=== PATIENT | female | born 1970 | race Caucasian/White ===

== ENCOUNTER → 2017-03-20 | Outpatient (CLI) | payer OTHER ==
--- NOTE | 2017-03-20 13:08 | CT ---
EXAMINATION TYPE: CT chest wo con DATE OF EXAM: 03/20/2017 COMPARISON: NONE HISTORY: Rt anterior upper chest swelling CT DLP: 286.9 mGycm. Automated Exposure Control for Dose Reduction was Utilized. TECHNIQUE: CT scan of the thorax is performed without IV contrast. FINDINGS: LUNGS: There is a subcentimeter pulmonary nodule measuring 4 mm within the right upper lobe on series 4 image 22. 2 mm focal area of pleural thickening is seen along the right lateral lower lung on seri es 4 image 52. Focal pleural thickening is also seen measuring 6 mm along the peripheral left lower l obe on series 4 image 53 no other pulmonary nodules or masses are identified.. There is no pleural effusion or pneumothorax seen. The tracheobronchial tree is patent. MEDIASTINUM: Lack of IV contrast is noted to limit evaluation for mediastinal and especially hilar ad enopathy. There are no definitive greater than 1 cm hilar or mediastinal lymph nodes. Single promine nt precarinal lymph node measures 8 mm in short axis. No cardiomegaly or pericardial effusion is seen . OTHER: Asymmetry of the pectoralis major musculature with right greater than left and curvilinear true cification or osseous fragment at the posterior aspect between the pectoralis major and minor muscula ture on series 3 image 15. Minimal fat stranding is seen anteriorly on series 4 image 12 through 14. There is also mild asymmetric sclerosis of the right distal clavicular head in comparison to the left such as on series 6 image 32 and series 3 image 14. Subchondral cystic change of the sternum is also seen at this location and possibly few areas of erosion. Soft tissue prominence projects posteriorly abutting the brachiocephalic vein such as on series 3 image 15 through 18. Remainder of the osseous structures are grossly unremarkable. IMPRESSION: 1. Asymmetric enlargement of the right pectoralis major musculature with overlying inflammatory brown e and distal clavicular sclerosis with surrounding soft tissue attenuation and sternoclavicular subch ondral cysts as well as possible erosion. Findings may be sequela of posttraumatic injury. As there i s no recent trauma inflammatory etiology such as arthropathy is or infectious etiology could be consi dered. 2. Subsolid 4 mm right upper lobe pulmonary nodule for which follow-up CT in one year is recommended to determine stability.
== END | disposition home or self-care (01) ==
LOC: RADCTMAIN 12:19
PROVIDERS: ATTEND Family Medicine
DX: R91.1 Solitary pulmonary nodule (principal); M79.89 Other specified soft tissue disorders; Z88.0 Allergy status to penicillin; Z88.1 Allergy status to other antibiotic agents; Z88.6 Allergy status to analgesic agent
CPT/HCPCS: 71250

== ENCOUNTER 2017-10-06 12:56 | Inpatient (IN) | payer OTHER ==
[2017-10-06] MEDS ORDERED: SODIUM CHLORIDE 0.9% 1,000 ML IV STA (13:56)
[2017-10-06] MEDS ORDERED: CLINDAMYCIN 600 MG in DEXTROSE 5% IN WATER 50 ML IVPB STA ×2 (13:58)
--- NOTE | 2017-10-06 14:00 | ED ---
General Adult HPI <Dayday Lara - Last Filed: 10/06/17 18:19> - General Source: patient, family, RN notes reviewed Mode of arrival: ambulatory Limitations: no limitations <Robert Whitney - Last Filed: 10/06/17 18:22> - General Chief complaint: Skin/Abscess/Foreign Body Stated complaint: Bump on Chest Time Seen by Provider: 10/06/17 13:34 - History of Present Illness Initial comments: Patient is a 47-year-old female presenting to the emergency room today with a chief complaint of possible infection to the right side of the chest wall. She does admit that approximately a year ago the symptoms started. She states she was treated by Dr. Gurrola. She states that several months ago she lost her insurance and was unable to continue the antibiotics. Patient does admit that she began feeling some discomfort right side of the chest wall. Days ago noticed this morning woke up with some swelling. She states the symptoms are consistent with what she was feeling in the past. She does admit to cough and congestion as well. Patient denies any recent fever, chills, shortness of breath , back pain, abdominal pain, nausea or vomiting, numbness or tingling, dysuria or hematuria, constipation or diarrhea, headaches or visual changes, or any other complaints. (Robert Whitney) - Related Data Home Medications Medication Instructions Recorded Confirmed Ibuprofen [Motrin] 400 - 800 mg PO Q6HR PRN 04/04/17 10/06/17 Allergies Allergy/AdvReac Type Severity Reaction Status Date / Time Penicillins Allergy Anaphylaxis Verified 10/06/17 18:13 sulfamethoxazole Allergy Rash/Hives Verified 10/06/17 18:13 [From Bactrim] trimethoprim [From Bactrim] Allergy Rash/Hives Verified 10/06/17 18:13 aspirin AdvReac Nausea & Verified 10/06/17 18:13 Vomiting Review of Systems ROS Other: All systems not noted in ROS Statement are negative. <Dayday Lara - Last Filed: 10/06/17 18:19> ROS Other: All systems not noted in ROS Statement are negative. <Robert Whitney - Last Filed: 10/06/17 18:22> ROS Statement: Those systems with pertinent positive or pertinent negative responses have been documented in the HPI. Past Medical History Past Medical History: Memory Impairment Additional Past Medical History / Comment(s): septic arthritis, right shoulder. MRSA. pt states has experienced memory loss since suicide attempt 7 months ago History of Any Multi-Drug Resistant Organisms: MRSA Date of last positivie culture/infection: 04/12/17 MDRO Source:: ASPIRATE Past Surgical History: Section, Hysterectomy, Orthopedic Surgery, Tonsillectomy Past Anesthesia/Blood Transfusion Reactions: No Reported Reaction Past Psychological History: Anxiety, Bipolar, Depression Smoking Status: Current every day smoker - Past Family History Father Family Medical History: Cancer Additional Family Medical History / Comment(s): lung <Robert Whitney - Last Filed: 10/06/17 18:22> General Exam <Dayday Lara - Last Filed: 10/06/17 18:19> Limitations: no limitations <Robert Whitney - Last Filed: 10/06/17 18:22> - General Exam Comments Initial Comments: General: The patient is awake and alert, in no distress, and does not appear acutely ill. Eye: Pupils are equal, round and reactive to light, extra-ocular movements are intact. No nystagmus. There is normal conjunctiva bilaterally. No signs of icterus. Ears, nose, mouth and throat: There are moist mucous membranes and no oral lesions. Neck: The neck is supple, there is no tenderness or JVD. Cardiovascular: There is a regular rate and rhythm. No murmur, rub or gallop is appreciated. Respiratory: Lungs are clear to auscultation, respirations are non-labored, breath sounds are equal. No wheezes, stridor, rales, or rhonchi. Musculoskeletal: Normal ROM, no tenderness. Strength 5/5. Sensation intact. Pulses equal bilaterally 2+. Neurological: A&O x 3. CN II-XII intact, There are no obvious motor or sensory deficits. Coordination appears grossly intact. Speech is normal. Skin: Mild area of swelling to the chest wall just below the right clavicle. No fluctuant area. Area is red surrounding. Psychiatric: Cooperative, appropriate mood & affect, normal judgment. (Robert Whitney) Course <Dayday Lara - Last Filed: 10/06/17 18:19> <Robert Whitney - Last Filed: 10/06/17 18:22> Vital Signs 06/09/18 06/09/18 06/09/18 13:18 14:30 17:19 Temperature 99.0 F Pulse Rate 103 H 91 99 Respiratory 18 18 18 Rate Blood Pressure 158/91 126/82 133/62 O2 Sat by Pulse 97 98 99 Oximetry - Reevaluation(s) Reevaluation #1: 10/06/17 18:19 PA supervision I proceeded a [id number] evaluation the patient did discuss the findings with her. 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 Patient will be admitted for inpatient treatment with consultation by infectious disease. (Dayday Lara) Medical Decision Making - Lab Data Result diagrams: 10/06/17 14:26 10/06/17 14:26 <Dayday Lara - Last Filed: 10/06/17 18:19> - Lab Data Result diagrams: 10/06/17 14:26 10/06/17 14:26 <Robert Whitney - Last Filed: 10/06/17 18:22> - Medical Decision Making Patient's labs been reviewed 14,000 white count. X-rays reviewed no evidence for osteomyelitis. No other acute abnormality. Patient does admit that the symptoms are consistent with symptoms that she had in the past of a MRSA infection to the chest wall. She was seen by infectious disease Dr. Gurrola. Patient started on clindamycin here in emergency room. Patient will be admitted to the hospital for continued on IV antibiotics. With consult to Dr. Abreu as Dr Gurrola is unavailable (Robert Wihtney) - Lab Data Lab Results 10/06/17 10/06/17 10/06/17 Range/Units 14:26 14:26 14:26 WBC 14.1 H (3.8-10.6) k/uL RBC 4.58 (3.80-5.40) m/uL Hgb 13.8 (11.4-16.0) gm/dL Hct 40.7 (34.0-46.0) % MCV 89.0 (80.0-100.0) fL MCH 30.2 (25.0-35.0) pg MCHC 34.0 (31.0-37.0) g/dL RDW 13.7 (11.5-15.5) % Plt Count 362 (150-450) k/uL Neutrophils % 78 % Lymphocytes % 14 % Monocytes % 6 % Eosinophils % 0 % Basophils % 0 % Neutrophils # 11.1 H (1.3-7.7) k/uL Lymphocytes # 1.9 (1.0-4.8) k/uL Monocytes # 0.9 (0-1.0) k/uL Eosinophils # 0.1 (0-0.7) k/uL Basophils # 0.0 (0-0.2) k/uL Sodium 143 (137-145) mmol/L Potassium 4.2 (3.5-5.1) mmol/L Chloride 104 (98-107) mmol/L Carbon Dioxide 25 (22-30) mmol/L Anion Gap 14 mmol/L BUN 8 (7-17) mg/dL Creatinine 0.50 L (0.52-1.04) mg/dL Est GFR (CKD-EPI)AfAm >90 (>60 ml/min/1.73 sqM) Est GFR (CKD-EPI)NonAf >90 (>60 ml/min/1.73 sqM) Glucose 96 (74-99) mg/dL Plasma Lactic Acid Julio 0.5 L (0.7-2.0) mmol/L Calcium 10.2 (8.4-10.2) mg/dL Total Bilirubin 0.4 (0.2-1.3) mg/dL AST 20 (14-36) U/L ALT 26 (9-52) U/L Alkaline Phosphatase 89 (38-126) U/L Total Protein 7.9 (6.3-8.2) g/dL Albumin 4.5 (3.5-5.0) g/dL Urine Color Urine Appearance (Clear) Urine pH (5.0-8.0) Ur Specific [place] (1.001-1.035) Urine Protein (Negative) Urine Glucose (UA) (Negative) Urine Ketones (Negative) Urine Blood (Negative) Urine Nitrite (Negative) Urine Bilirubin (Negative) Urine Urobilinogen (<2.0) mg/dL Ur Leukocyte Esterase (Negative) Urine RBC (0-5) /hpf Urine WBC (0-5) /hpf Ur Squamous Epith Cells (0-4) /hpf Urine Bacteria (None) /hpf 10/06/17 Range/Units 14:26 WBC (3.8-10.6) k/uL RBC (3.80-5.40) m/uL Hgb (11.4-16.0) gm/dL Hct (34.0-46.0) % MCV (80.0-100.0) fL MCH (25.0-35.0) pg MCHC (31.0-37.0) g/dL RDW (11.5-15.5) % Plt Count (150-450) k/uL Neutrophils % % Lymphocytes % % Monocytes % % Eosinophils % % Basophils % % Neutrophils # (1.3-7.7) k/uL Lymphocytes # (1.0-4.8) k/uL Monocytes # (0-1.0) k/uL Eosinophils # (0-0.7) k/uL Basophils # (0-0.2) k/uL Sodium (137-145) mmol/L Potassium (3.5-5.1) mmol/L Chloride (98-107) mmol/L Carbon Dioxide (22-30) mmol/L Anion Gap mmol/L BUN (7-17) mg/dL Creatinine (0.52-1.04) mg/dL Est GFR (CKD-EPI)AfAm (>60 ml/min/1.73 sqM) Est GFR (CKD-EPI)NonAf (>60 ml/min/1.73 sqM) Glucose (74-99) mg/dL Plasma Lactic Acid Julio (0.7-2.0) mmol/L Calcium (8.4-10.2) mg/dL Total Bilirubin (0.2-1.3) mg/dL AST (14-36) U/L ALT (9-52) U/L Alkaline Phosphatase (38-126) U/L Total Protein (6.3-8.2) g/dL Albumin (3.5-5.0) g/dL Urine Color Light Yellow Urine Appearance Clear (Clear) Urine pH 6.0 (5.0-8.0) Ur Specific [place] 1.005 (1.001-1.035) Urine Protein Negative (Negative) Urine Glucose (UA) Negative (Negative) Urine Ketones Negative (Negative) Urine Blood Small H (Negative) Urine Nitrite Negative (Negative) Urine Bilirubin Negative (Negative) Urine Urobilinogen <2.0 (<2.0) mg/dL Ur Leukocyte Esterase Negative (Negative) Urine RBC 2 (0-5) /hpf Urine WBC <1 (0-5) /hpf Ur Squamous Epith Cells 1 (0-4) /hpf Urine Bacteria Occasional H (None) /hpf Disposition <Dayday Lara - Last Filed: 10/06/17 18:19> Is patient prescribed a controlled substance at d/c from ED?: No Time of Disposition: 16:15 <Robert Whitney - Last Filed: 10/06/17 18:22> Clinical Impression: Chest wall abscess Disposition: ADMITTED IP TO THIS HOSP Condition: Good Referrals: Morgan Srivastava MD [Primary Care Provider] - 1-2 days
[2017-10-06] MEDS ORDERED: MORPHINE SULFATE 2 MG/ML SYRINGE IVP STA (14:33)
[2017-10-06 14:49] LABS: Basophils % (A) 0 %; Eosinophils # (A) 0.1 k/uL (0-0.7); Eosinophils % (A) 0 %; HCT 40.7 % (34.0-46.0); HGB 13.8 gm/dL (11.4-16.0); Lymphocytes # (A) 1.9 k/uL (1.0-4.8); Lymphocytes % (A) 14 %; MCH 30.2 pg (25.0-35.0); Monocytes # (A) 0.9 k/uL (0-1.0); Monocytes % (A) 6 %; Neutrophils # (A) 11.1 k/uL (1.3-7.7); Neutrophils % (A) 78 %; Platelet Count 362 k/uL (150-450); RBC 4.58 m/uL (3.80-5.40); RDW 13.7 % (11.5-15.5); WBC 14.1 k/uL (3.8-10.6)
[2017-10-06 14:51] LABS: Appearance,Urine Clear (Clear); Bacteria,Urine Occasional /hpf; Bilirubin,Urine Negative (Negative); Blood,Urine Small (Negative); Color,Urine Light Yellow; Glucose,Urine (UA) Negative (Negative); Ketones,Urine Negative (Negative); Leukocyte Esterase,Urine Negative (Negative); Nitrite,Urine Negative (Negative); Protein,Urine Negative (Negative); RBC,Urine 2 /hpf (0-5); Specific Gravity,Urine 1.005 (1.001-1.035); Squamous Epithelial Cell,Urine 1 /hpf (0-4); Urobilinogen,Urine <2.0 mg/dL (<2.0); WBC,Urine <1 /hpf (0-5)
[2017-10-06 15:02] LABS: ALT 26 U/L (9-52); AST 20 U/L (14-36); Albumin 4.5 g/dL (3.5-5.0); Alkaline Phosphatase 89 U/L (38-126); Anion Gap 14 mmol/L; Blood Urea Nitrogen 8 mg/dL (7-17); Calcium 10.2 mg/dL (8.4-10.2); Carbon Dioxide 25 mmol/L (22-30); Chloride 104 mmol/L (98-107); Glucose 96 mg/dL (74-99); Potassium 4.2 mmol/L (3.5-5.1); Sodium 143 mmol/L (137-145); Total Bilirubin 0.4 mg/dL (0.2-1.3); Total Protein 7.9 g/dL (6.3-8.2)
--- NOTE | 2017-10-06 15:43 | XR ---
EXAMINATION TYPE: XR chest 2V DATE OF EXAM: 10/06/2017 COMPARISON: NONE TECHNIQUE: PA and lateral views submitted. HISTORY: Pain and cough FINDINGS: The lungs are clear and there is no pneumothorax, pleural effusion, or focal pneumonia. Hypertrophi c change of the spine noted. Hyperinflation suggests COPD. IMPRESSION: 1. No acute process.
--- NOTE | 2017-10-06 15:46 | XR ---
EXAMINATION TYPE: XR clavicle RT DATE OF EXAM: 10/06/2017 COMPARISON: NONE HISTORY: Pain TECHNIQUE: 2 views submitted FINDINGS: AC joint maintained. Osseous structures intact. IMPRESSION: No acute fracture
[2017-10-06] MEDS ORDERED: MORPHINE SULFATE 2 MG/ML SYRINGE IV PRN (16:46)
[2017-10-06] MEDS ORDERED: NALOXONE 0.4 MG/ML 1 ML VIAL IV PRN (16:46)
[2017-10-06] MEDS ORDERED: SODIUM CHLORIDE 0.9% 1,000 ML IV ONE (16:46)
[2017-10-06] MEDS ORDERED: LORazepam 2 MG/ML INJ IV PRN (16:46)
[2017-10-06] MEDS: ACETAMINOPHEN TAB 325 MG TAB PO PRN ×2 (17:16→22:42)
[2017-10-06] MEDS: IBUPROFEN 600 MG TAB PO PRN ×2 (17:17→22:43)
[2017-10-06 20:21] VITALS: BMI 29.2
[2017-10-06] MEDS: CLINDAMYCIN 300 MG in DEXTROSE 5% IN WATER 50 ML IVPB SCH ×2 (20:33)
[2017-10-07] MEDS: CLINDAMYCIN 300 MG in DEXTROSE 5% IN WATER 50 ML IVPB SCH ×8 (03:50→20:25)
[2017-10-07] MEDS: ONDANSETRON 4 MG/2 ML VIAL IVP PRN ×2 (03:54→18:38)
[2017-10-07 08:45] LABS: Basophils % (A) 0 %; Eosinophils # (A) 0.1 k/uL (0-0.7); Eosinophils % (A) 1 %; HCT 35.6 % (34.0-46.0); HGB 11.7 gm/dL (11.4-16.0); Lymphocytes # (A) 1.3 k/uL (1.0-4.8); Lymphocytes % (A) 18 %; MCH 29.8 pg (25.0-35.0); MCHC 32.8 g/dL (31.0-37.0); MCV 90.7 fL (80.0-100.0); Mean Platelet Volume 6.6; Monocytes # (A) 0.5 k/uL (0-1.0); Monocytes % (A) 7 %; Neutrophils # (A) 5.4 k/uL (1.3-7.7); Neutrophils % (A) 72 %; Platelet Count 314 k/uL (150-450); RBC 3.93 m/uL (3.80-5.40); RDW 13.6 % (11.5-15.5); WBC 7.5 k/uL (3.8-10.6)
[2017-10-07] MEDS: IBUPROFEN 600 MG TAB PO PRN (08:59)
[2017-10-07 09:04] LABS: Albumin 3.3 g/dL (3.5-5.0); Chloride 108 mmol/L (98-107); Glucose 126 mg/dL (74-99); Potassium 4.3 mmol/L (3.5-5.1); Sodium 141 mmol/L (137-145); Total Protein 5.9 g/dL (6.3-8.2)
[2017-10-07 09:07] LABS: ALT 26 U/L (9-52); AST 17 U/L (14-36); Alkaline Phosphatase 64 U/L (38-126); Anion Gap 8 mmol/L; Blood Urea Nitrogen 11 mg/dL (7-17); Carbon Dioxide 25 mmol/L (22-30); Total Bilirubin 0.3 mg/dL (0.2-1.3)
[2017-10-07] MEDS: IBUPROFEN 800 MG TAB PO PRN ×2 (15:46→21:25)
[2017-10-07] MEDS ORDERED: RX INFO: IV CONTRAST WAS GIVEN 1 EACH MISC MISCELLANE PRN (18:56)
--- NOTE | 2017-10-07 20:32 | P.CN ---
Psychiatric Consult - . Consult date: 10/07/17 Consult:: 10/07/17 20:22 IDENTIFYING DATA: 47-year-old female patient HPI: Patient admitted to [facility] medical floor with concerns of chest wall abscess. Patient states that she had MRSA makes reference to it now being back in the bone, relates she's not sure why I'm seeing her for a consultation. Guarding her mood she states that she is " pissed off." She states that she didn't want a friend here and he was here and she threw him out. She does describe having some depression lately. PAST PSYCHIATRIC HISTORY: She reports having had a suicide attempt approximately a year ago of "300 Tylenol." Says she lost part of her memory probably from taking all the medication. She does not currently see a psychiatrist or counselor. Says she had no insurance to pay for the antidepressant. She says she hilario no idea if she's had a manic episode. She makes reference to being on Klonopin in the past as well as a mood stabilizer. PMH: Per chart history memory impairment, septic arthritis, MRSA ALLERGIES: Penicillins, sulfamethoxazole, trimethoprim, aspirin MEDICATIONS: And Tylenol when necessary, clindamycin, when necessary, Ativan when necessary, morphine sulfate when necessary, Narcan when necessary, Zofran when necessary CHEMICAL DEPENDENCY HISTORY: Some history of alcohol use but it was never a problem it sounds. FAMILY PSYCHIATRIC HISTORY: She relates some people in the family been diagnosed with bipolar disorder FAMILY CHEMICAL DEPENDENCY HISTORY: None known at this time SOCIAL HISTORY: Lives at her mom's currently. She has 3 adult children. She is twice and . Says she hasn't been able to work. She is her own guardian. She's not on any disability. MENTAL STATUS EXAM: She is alert and cooperative overall with the interview. She describes her mood is depressed. She denies any recent or current thoughts of harm to self or others. She is oriented to place and date, appears to be looking at the hospital board in the room. She is forgetful for several things in her history. IMPRESSIONS: Unspecified depressive disorder, rule out any component of bipolar disorder; unspecified neurocognitive disorder PLAN: Would recommend getting a medication history if possible of psychotropic medications from Dr. Srivastava's office, so it can be assessed which medication she has been on in the past. We'll see a social work staff can assist with this. We will provide an outpatient mental health referral sheet for the patient. Psychiatry can follow up during the hospital course.
--- NOTE | 2017-10-07 20:44 | CT ---
EXAMINATION TYPE: CT chest w con DATE OF EXAM: 10/07/2017 COMPARISON: 03/20/2017 HISTORY: Right chest wall abscess x 1 year. Approximate center marked by BB. CT DLP: 293.9 mGycm. Automated Exposure Control for Dose Reduction was Utilized. TECHNIQUE: CT scan of the thorax is performed following with IV Contrast, patient injected with 100 mL of Isovue 300. FINDINGS: LUNGS: There is bibasilar subsegmental atelectasis, linear in orientation with lingular atelectasis a lso seen The lungs are grossly clear, there is no concerning parenchymal mass or nodule identified. There is no pleural effusion or pneumothorax seen. The tracheobronchial tree is patent. MEDIASTINUM: There are no greater than 1 cm hilar or mediastinal lymph nodes. No pericardial effusi on is seen. OTHER: There is asymmetric thickening, surrounding mild inflammatory change, and irregularity of the medial pectoralis major musculature. Asymmetric arthropathy of the right sternoclavicular joint and f irst rib at the costochondral junction are also seen posterior to this. No internal fluid signal is s een. No enhancing defined mass is identified. No CT evidence of complete muscular tear. Mild multilev el degenerative change of the thoracic spine. IMPRESSION: Asymmetry of the medial right pectoralis muscle with thickening, surrounding mild inflamm atory change, and heterogeneity. No focal fluid collection is seen. Finding could represent acute on chronic tear or underlying mass. Enhanced chest MRI is recommended for further evaluation.
--- NOTE | 2017-10-07 23:20 | CONS ---
CONSULTATION DATE OF SERVICE: 10/07/2017 REASON FOR CONSULTATION: Chest wall abscess. HISTORY OF PRESENT ILLNESS: The patient is a 47-year-old female who does give a history of right sternoclavicular joint osteomyelitis for which the patient apparently has been treated by Dr. Gurrola with IV antibiotic therapy. The patient said that she is having a pain in her right upper chest. Pain described to be sharp in nature, almost 7 to 10 out of 10, and no radiation. She has been feeling swelling on the right side of the chest area, though denies any high-grade fever. With these symptoms the patient presented back to the [facility] ER where the patient has been evaluated by the ER physician. The patient did have an x-ray done which was negative for any acute process in the chest. A clavicle x-ray showed no acute fracture. The patient was started on vancomycin and admitted to the hospital. Infectious Disease was consulted for further recommendation regarding antibiotic therapy. REVIEW OF SYSTEMS: CONSTITUTIONAL: Positive for weakness, however, denies any high-grade fever. EYES: No complaints. ENT: No complaints. RESPIRATORY: No complaints. CARDIOVASCULAR: No complaints. GENITOURINARY: No complaints. CHEST: No complaints. MUSCULOSKELETAL: As per HPI. INTEGUMENTARY: As per HPI. PSYCHOLOGICAL: No complaints. ENDOCRINE: No complaints. NEUROLOGIC: No complaints. PAST MEDICAL HISTORY: Significant for a right sternoclavicular joint septic arthritis secondary MRSA . PAST SURGICAL HISTORY: , hysterectomy, tonsillectomy. PSYCHOLOGICAL HISTORY: Positive for anxiety, bipolar, depression. SOCIAL HISTORY: Positive smoking. No drinking or drug use. FAMILY HISTORY: Father history of lung cancer. ALLERGIES: PENICILLIN, SULFAMETHOXAZOLE, ASPIRIN. MEDICATIONS: Include the patient currently on Tylenol, clindamycin, Motrin, Ativan, , Zofran. PHYSICAL EXAMINATION: Blood pressure 139/69 with a pulse of 75, temperature 97, saturating 98% on room air. GENERAL DESCRIPTION: A middle aged female lying in bed in no distress. No tachypnea or respiration use. HEENT: Shows no pallor or scleral icterus. Oral mucosa is dry. No pharyngeal erythema or thrush. NECK: Trachea central. No thyromegaly. LUNGS: Unlabored breathing. Clear to auscultation anteriorly. No wheeze or crackle. HEART: Heart S1, S2. Regular rate and rhythm. ABDOMEN: Soft, no tenderness. No guarding or rigidity. EXTREMITIES: No edema of the feet. SKIN: No rash. No mass palpable. NEUROLOGIC: The patient is awake, alert. SKIN: Right upper chest wall area with very minimal tenderness on palpation. No significant swelling or induration was noted. LABS: Hemoglobin 13.8, white count 14.1 with a BUN of 8, creatinine 0.50. UA has been negative. Blood culture obtained currently pending. DIAGNOSTIC IMPRESSION AND PLAN: Patient admitted to the hospital with right upper chest and clavicular area pain and swelling and the patient did have previous history of sternoclavicular joint osteomyelitis with MRSA with concern for possible recurrence of the same infection. The patient currently with no evidence of any cellulitis, minimal tenderness on examination. White count is slightly elevated. X-rays of the chest as well as clinically negative. The patient does have multiple antibiotic allergies limit the number of antibiotics that we could use. PLAN: 1. We will obtain a CT of the chest, specifically pointing towards the sternoclavicular area to rule out any evidence of osteomyelitis or infection in that location. 2. We will discontinue the clindamycin. 3. Start the patient on daptomycin 60 mg/kg daily. 4. The patient will be seen by Dr. Gurrola, to whom the patient is well known, further care starting tomorrow. MASSIEL / FLORINA: [id number] /
[2017-10-08] MEDS: ONDANSETRON 4 MG/2 ML VIAL IVP PRN ×2 (01:51→10:00)
[2017-10-08] MEDS: IBUPROFEN 800 MG TAB PO PRN ×2 (08:14→13:45)
[2017-10-08] MEDS ORDERED: NICOTINE 14MG/24HR PATCH TRANSDERM STA (16:51)
[2017-10-08] MEDS: KETOROLAC 30 MG/ML 1 ML VIAL IVP SCH (17:41)
[2017-10-08] MEDS: LINEZOLID 600 MG in DEXTROSE/WATER 1 300ML.BAG IVPB SCH (17:41)
--- NOTE | 2017-10-08 18:09 | P.PN ---
Subjective Progress Note Date: 10/08/17 47-year-old female known to the infectious disease service starting in March 2017 which point in time she was having difficulties relating to her anterior chest wall. To summarize, Months before she presented she had been hospitalized at [facility] after a suicide attempt. She developed a distinct phlebitis to her left arm. Thereafter developed the progressive pain and swelling to the right anterior chest wall at the right sternoclavicular joint. The patient was referred to infectious diseases in March and she was sent to the interventional radiologist were a joint aspiration occurred and MRSA was found at that site. She was treated originally with vancomycin therapy and had no improvement, and vancomycin OK was 2. She eventually was switched to daptomycin therapy and completed nearly 8 weeks of daptomycin with a marked improvement of her pain swelling to the site. Her sed rate and CRP normalized and she felt relatively well. She has some difficulties with fatigue and some nausea from the antibiotic of the this she had progressive improvement. She relates however shortly after completing her antibiotic therapy she stopped working because she just wasn't feeling well. And since that time which would be June she just has not been doing very well. She continues to have difficulty with her mood. In the site which was doing well again has become a bit more swollen or tender and she's having difficulty with use of the right arm because of the discomfort at that site and presented to the emergency center. She's been not having high-grade fever at this time. Psychiatry has been consulted for her chronic depression issues. Objective - Vital Signs Vital signs: Vital Signs Temp 97.9 F 10/08/17 14:46 Pulse 63 10/08/17 14:46 Resp 20 10/08/17 14:46 BP 113/53 10/08/17 14:46 Pulse Ox 97 10/08/17 14:46 Intake & Output 10/07/17 10/08/17 10/08/17 18:59 06:59 18:59 Intake Total 700 300 Balance 700 300 Intake: Intake, IV Titration 100 Amount DAPTOmycin 450 mg In 100 Sodium Chloride 0.9% 50 ml @ 100 mls/hr IVPB Q24HR FABRICIO Rx#:[id number] Oral 700 200 Other: Voiding Method Toilet # Voids 3 2 - Exam 47-year-old woman relates she feels miserable, but is sitting upright in communicating clearly. HEENT: Anicteric conjunctiva are pink and moist nasal mucosa grossly intact without significant lesions, there is no thrush. Neck: The neck is supple without significant lymphadenopathy or thyromegaly. Lungs: Good bilateral air entry without significant crackles or wheezing. There is no significant bronchial sounds. There is no egophony or dullness. Heart: Regular rate and rhythm with an audible S1-S2, no S3 no S4. There is no significant murmur click or rub, PMI was nondisplaced. Abdomen: Positive bowel sounds soft and nontender without palpable masses or organomegaly. There was no guarding or rebound. Extremities: The upper extremities have excellent pulses they are symmetric, no significant petechiae or telangiectasia. No splinter hemorrhages were noted. The lower extremities are free from significant edema. The peripheral pulses were 2+ and symmetric. Neuro: Awake alert oriented to person place and time. There are no acute new gross focal sensory motor deficits. Skin over the right sternoclavicular joint shows evidence of some mild induration, it is somewhat tender to touch, it is not fluctuant, there is no radiating erythema. She does have some tenderness over the clavicle to the right shoulder but there is no skin erythema that tracks along the clavicle. There is no lymphadenopathy right axillary or supraclavicular. No other abnormal lymph nodes are seen. The left sternoclavicular joint is without tenderness or abnormality. The sternum is nontender. - Labs CBC & Chem 7: 10/07/17 08:21 10/07/17 08:21 Labs: Microbiology - Last 24 Hours (Table) 10/06/17 14:26 Blood Culture - Preliminary Blood No Growth after 48 hours 10/06/17 14:26 Urine Culture - Final Urine,Voided Laboratory Results WBC 7.5 k/uL (3.8-10.6) 10/07/17 08:21 RBC 3.93 m/uL (3.80-5.40) 10/07/17 08:21 Hgb 11.7 gm/dL (11.4-16.0) 10/07/17 08:21 Hct 35.6 % (34.0-46.0) 10/07/17 08:21 MCV 90.7 fL (80.0-100.0) 10/07/17 08:21 MCH 29.8 pg (25.0-35.0) 10/07/17 08:21 MCHC 32.8 g/dL (31.0-37.0) 10/07/17 08:21 RDW 13.6 % (11.5-15.5) 10/07/17 08:21 Plt Count 314 k/uL (150-450) 10/07/17 08:21 Neutrophils % 72 % 10/07/17 08:21 Lymphocytes % 18 % 10/07/17 08:21 Monocytes % 7 % 10/07/17 08:21 Eosinophils % 1 % 10/07/17 08:21 Basophils % 0 % 10/07/17 08:21 Neutrophils # 5.4 k/uL (1.3-7.7) 10/07/17 08:21 Lymphocytes # 1.3 k/uL (1.0-4.8) 10/07/17 08:21 Monocytes # 0.5 k/uL (0-1.0) 10/07/17 08:21 Eosinophils # 0.1 k/uL (0-0.7) 10/07/17 08:21 Basophils # 0.0 k/uL (0-0.2) 10/07/17 08:21 Sodium 141 mmol/L (137-145) 10/07/17 08:21 Potassium 4.3 mmol/L (3.5-5.1) 10/07/17 08:21 Chloride 108 mmol/L (98-107) H 10/07/17 08:21 Carbon Dioxide 25 mmol/L (22-30) 10/07/17 08:21 Anion Gap 8 mmol/L 10/07/17 08:21 BUN 11 mg/dL (7-17) 10/07/17 08:21 Creatinine 0.53 mg/dL (0.52-1.04) 10/07/17 08:21 Est GFR (CKD-EPI)AfAm >90 (>60 ml/min/1.73 sqM) 10/07/17 08:21 Est GFR (CKD-EPI)NonAf >90 (>60 ml/min/1.73 sqM) 10/07/17 08:21 Glucose 126 mg/dL (74-99) H 10/07/17 08:21 Plasma Lactic Acid Julio 0.5 mmol/L (0.7-2.0) L 10/06/17 14:26 Calcium 9.0 mg/dL (8.4-10.2) 10/07/17 08:21 Total Bilirubin 0.3 mg/dL (0.2-1.3) 10/07/17 08:21 AST 17 U/L (14-36) 10/07/17 08:21 ALT 26 U/L (9-52) 10/07/17 08:21 Alkaline Phosphatase 64 U/L (38-126) 10/07/17 08:21 Total Protein 5.9 g/dL (6.3-8.2) L 10/07/17 08:21 Albumin 3.3 g/dL (3.5-5.0) L 10/07/17 08:21 Urine Color Light Yellow 10/06/17 14:26 Urine Appearance Clear (Clear) 10/06/17 14:26 Urine pH 6.0 (5.0-8.0) 10/06/17 14:26 Ur Specific [place] 1.005 (1.001-1.035) 10/06/17 14:26 Urine Protein Negative (Negative) 10/06/17 14:26 Urine Glucose (UA) Negative (Negative) 10/06/17 14:26 Urine Ketones Negative (Negative) 10/06/17 14:26 Urine Blood Small (Negative) H 10/06/17 14:26 Urine Nitrite Negative (Negative) 10/06/17 14:26 Urine Bilirubin Negative (Negative) 10/06/17 14:26 Urine Urobilinogen <2.0 mg/dL (<2.0) 10/06/17 14:26 Ur Leukocyte Esterase Negative (Negative) 10/06/17 14:26 Urine RBC 2 /hpf (0-5) 10/06/17 14:26 Urine WBC <1 /hpf (0-5) 10/06/17 14:26 Ur Squamous Epith Cells 1 /hpf (0-4) 10/06/17 14:26 Urine Bacteria Occasional /hpf (None) H 10/06/17 14:26 Microbiology 10/06/17 14:26 Blood Blood Culture - Preliminary No Growth after 48 hours 10/06/17 14:26 Urine,Voided Urine Culture - Final Assessment and Plan (1) Septic arthritis of right sternoclavicular joint Narrative/Plan: 47-year-old female well known to the service from herself and infection to the right anterior chest wall at the right sternoclavicular joint earlier this year. She was treated with a protracted course of intravenous antibiotic therapy originally vancomycin therapy without improvement which was then switched to daptomycin therapy. With this she had significant improvement in what appeared to be resolution of the infection. She had resolution of the pain and the swelling at the site and normalization of her sed rate and CRP. The following 3 months she's been doing relatively well until she now has a sudden onset of significant swelling to that site that is painful and tender to touch but is not fluctuant, as it was in the past. The chest CT continues to show evidence of the abnormality from the right side to the left with some thickening and inflammatory change no focal fluid collection was noted. She is complaining of not feeling well on the current antibiotic therapy symmetry as before. Constantly daptomycin will be changed to Zyvox and she be monitored for the response. MRI to the areas being requested to evaluate for underlying fluid collection, and to assess infection or abscess of the right sternoclavicular joint or in that region. Pain control be altered to Toradol and notes this will have less impact on her stomach is bothering her at this time. She is an active smoker and a nicotine patch has been applied. Current Visit: Yes Status: Acute Code(s): M00.9 - PYOGENIC ARTHRITIS, UNSPECIFIED SNOMED Code(s): 474219774 (2) Right-sided chest wall pain Current Visit: Yes Status: Acute Code(s): R07.89 - OTHER CHEST PAIN SNOMED Code(s): 507520115 (3) Nausea in adult Current Visit: Yes Status: Acute Code(s): R11.0 - NAUSEA SNOMED Code(s): 312874034
--- NOTE | 2017-10-08 19:33 | HP ---
HISTORY AND PHYSICAL CHIEF COMPLAINT: Pain and swelling of the right sternoclavicular joint. HISTORY OF PRESENT ILLNESS: This lady came to the emergency room with pain, swelling and redness over the right upper anterior chest. She has had a history of MRSA in that area, which was treated several years ago. She noticed the swelling and pain in the last several days and came back to the emergency room, where she was diagnosed as having a recurrence of her infection. She has had no fever, chills, nausea, vomiting, etc. There has been no history of trauma. She also has COPD and a history of depression. REVIEW OF SYSTEMS: She has had no neurologic problems, change in vision or hearing, shortness of breath, cough, hypertension, heart disease, abdominal pain, nausea, vomiting, melena, hematochezia, jaundice, renal disease, diabetes, etc. Past medical history, family history and personal and social histories demonstrate that she is ALLERGIC TO SULFA, PENICILLIN AND ASPIRIN. She has been on Seroquel 50 mg once a day, Wellbutrin 150 b.i.d., vitamin D and ibuprofen. She has had hysterectomy and tonsillectomy and adenoidectomy as well as a LEEP procedure. She continues to smoke and denies drinking. PHYSICAL EXAMINATION: Blood pressure 130/86 with a pulse 72, respirations 33, and temperature 99.5. In general she appeared to be well developed, well nourished, in no acute distress. Skin color is normal. Skin is warm and dry. Lymph nodes are not enlarged. Head, ears, eyes, nose, mouth and throat were normal. Neck veins were not distended. Thyroid is not enlarged. She had soft tissue swelling and tenderness over the right sternoclavicular joint. There is no drainage. Chest is clear to auscultation and percussion. She had increased A/P diameter. Cardiac exam is normal. No murmurs or extra sounds. Abdomen is soft, nontender without any visceromegaly or masses. Extremities are normal. Neurologically she is intact. She is admitted to the hospital with diagnoses: 1. 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 2. Major depression. 3. Chronic obstructive pulmonary disease. PLAN: 1. Bed rest. 2. IV fluids. 3. IV antibiotics. 4. Infectious disease consult. MMODL / IJN: [id number] /
--- NOTE | 2017-10-08 19:39 | PN ---
PROGRESS NOTE DATE OF SERVICE: 10/07/2017 CHIEF COMPLAINT: Cellulitis and joint infection in the right sternoclavicular joint. HISTORY OF PRESENT ILLNESS: This lady is feeling a little bit better. The swelling and discomfort have started to diminish. PHYSICAL EXAMINATION: CHEST: Clear. Cardiac exam is normal. The soft tissue swelling in the region of the proximal clavicle has started to subside. IMPRESSION: Infection in right sternoclavicular joint with cellulitis. PLAN: Continue with IV antibiotics. MMWILLL / BROCKN: [id number] /
--- NOTE | 2017-10-08 19:42 | PN ---
PROGRESS NOTE CHIEF COMPLAINT: Infection of the right sternoclavicular joint. HISTORY OF PRESENT ILLNESS: This lady is doing well. The swelling has gone down and pain is much improved. PHYSICAL EXAMINATION: CHEST: Clear. Cardiac exam is normal. There is much less swelling over the affected area. IMPRESSION: Sternocleidomastoid infection. PLAN: 1. Continue with IV fluids and antibiotics. 2. She has been evaluated and is being followed by Psychiatry. MMODL / IJN: [id number] /
[2017-10-09] MEDS: KETOROLAC 30 MG/ML 1 ML VIAL IVP SCH ×5 (01:43→23:10)
[2017-10-09] MEDS: LINEZOLID 600 MG in DEXTROSE/WATER 1 300ML.BAG IVPB SCH ×2 (06:40→18:16)
[2017-10-09] MEDS: NICOTINE 14MG/24HR PATCH TRANSDERM SCH (08:38)
[2017-10-09] MEDS: ONDANSETRON 4 MG/2 ML VIAL IVP PRN ×2 (08:47→18:36)
[2017-10-09] MEDS ORDERED: MAGNESIUM HYDROXIDE 2,400 MG/10 ML CUP PO PRN (10:39)
[2017-10-09] MEDS: SENNOSIDES-DOCUSATE SODIUM 1 EACH TAB PO SCH ×2 (11:36→20:08)
[2017-10-09] MEDS: PANTOPRAZOLE 40 MG TABLET PO SCH ×2 (12:03→18:18)
--- NOTE | 2017-10-09 12:28 | PN ---
PROGRESS NOTE CHIEF COMPLAINT: Sternomanubrial joint infection. HISTORY OF PRESENT ILLNESS: This lady continues to improve. She is having quite a bit of difficulty with constipation. PHYSICAL EXAM: Physical exam is unchanged. The swelling over the right sternocleidomastoid joint is gradually receding and it is less tender. IMPRESSION: Sternocleidomastoid or sternomanubrial joint infection with cellulitis. PLAN: Continue with IV fluids and antibiotics. She is also to be assessed by Psychiatry. MMWILLL / IJN: [id number] /
--- NOTE | 2017-10-09 15:37 | MR ---
MR right clavicle HISTORY: Abscess right sternoclavicular joint Multiplanar multisequence and postcontrast images through the right clavicle and sternoclavicular madhav nt following 7 cc Gadavist IV. Correlation to CT chest 10/07/2017 The bone erosion seen on CT scan is again noted, there is local fluid signal as well as bone fragment ation abnormal enhancement at the level of the articulation of the anterior first rib and sternum. Fo true area of low signal the level of the joint as noted on T2-weighted sequences with intermediate sig nal on T1, local enhancement on T2 and may represent sequestrum or infection cartilage. Small crescen tic focus of T1 intermediate signal, high signal on T2-weighted sequences, intermediate signal with s urrounding enhancement following contrast administration measuring 1.8 x 0.6 cm inferior to the joint compatible with probable fluid collection, abscess. Inflammatory changes are present within the subc utaneous fat and musculature. IMPRESSION: Abscess involving the anterior articulation of the first rib at the level of the sternum superficially, inflammatory changes with osteomyelitis.
--- NOTE | 2017-10-09 20:16 | P.PN ---
Subjective Progress Note Date: 10/09/17 47-year-old female known to the infectious disease service starting in March 2017 which point in time she was having difficulties relating to her anterior chest wall. To summarize, Months before she presented she had been hospitalized at [facility] after a suicide attempt. She developed a distinct phlebitis to her left arm. Thereafter developed the progressive pain and swelling to the right anterior chest wall at the right sternoclavicular joint. The patient was referred to infectious diseases in March and she was sent to the interventional radiologist were a joint aspiration occurred and MRSA was found at that site. She was treated originally with vancomycin therapy and had no improvement, and vancomycin OK was 2. She eventually was switched to daptomycin therapy and completed nearly 8 weeks of daptomycin with a marked improvement of her pain swelling to the site. Her sed rate and CRP normalized and she felt relatively well. She has some difficulties with fatigue and some nausea from the antibiotic of the this she had progressive improvement. She relates however shortly after completing her antibiotic therapy she stopped working because she just wasn't feeling well. And since that time which would be June she just has not been doing very well. She continues to have difficulty with her mood. In the site which was doing well again has become a bit more swollen or tender and she's having difficulty with use of the right arm because of the discomfort at that site and presented to the emergency center. She's been not having high-grade fever at this time. Psychiatry has been consulted for her chronic depression issues. 10/09/2017 patient feels slightly better today. She continues to have some GI symptoms but is better today. She did eat some food and just fluids without difficulty. She's not had nausea for many hours and has not had emesis today. She relates the pain to the right sternoclavicular area is somewhat improved today. She is not clear if this is because of her lack of activity by the fact that she is starting to feel better. She is not having fever today. It is not related to any other new acute symptoms today. Objective - Vital Signs Vital signs: Vital Signs Temp 98.4 F 10/09/17 14:00 Pulse 67 10/09/17 14:00 Resp 18 10/09/17 14:00 BP 133/67 10/09/17 14:00 Pulse Ox 95 10/09/17 14:00 Intake & Output 10/09/17 10/09/1718 06:59 18:59 06:59 Intake Total 950 960 Balance 950 960 Weight 72.5 kg Intake: Oral 950 960 Other: Voiding Method Toilet # Voids 2 2 - Exam 47-year-old woman relates she feels miserable, but is sitting upright in communicating clearly. HEENT: Anicteric conjunctiva are pink and moist nasal mucosa grossly intact without significant lesions, there is no thrush. Neck: The neck is supple without significant lymphadenopathy or thyromegaly. Lungs: Good bilateral air entry without significant crackles or wheezing. There is no significant bronchial sounds. There is no egophony or dullness. Heart: Regular rate and rhythm with an audible S1-S2, no S3 no S4. There is no significant murmur click or rub, PMI was nondisplaced. Abdomen: Positive bowel sounds soft and nontender without palpable masses or organomegaly. There was no guarding or rebound. Extremities: The upper extremities have excellent pulses they are symmetric, no significant petechiae or telangiectasia. No splinter hemorrhages were noted. The lower extremities are free from significant edema. The peripheral pulses were 2+ and symmetric. Neuro: Awake alert oriented to person place and time. There are no acute new gross focal sensory motor deficits. Skin over the right sternoclavicular joint shows evidence of some mild induration, it is somewhat tender to touch, it is not fluctuant, there is no radiating erythema. She does have some tenderness over the clavicle to the right shoulder but there is no skin erythema that tracks along the clavicle. There is no lymphadenopathy right axillary or supraclavicular. No other abnormal lymph nodes are seen. The left sternoclavicular joint is without tenderness or abnormality. The sternum is nontender. - Labs CBC & Chem 7: 10/07/17 08:21 10/07/17 08:21 Labs: Microbiology - Last 24 Hours (Table) 10/06/17 14:26 Blood Culture - Preliminary Blood No Growth after 72 hours Laboratory Results WBC 7.5 k/uL (3.8-10.6) 10/07/17 08:21 RBC 3.93 m/uL (3.80-5.40) 10/07/17 08:21 Hgb 11.7 gm/dL (11.4-16.0) 10/07/17 08:21 Hct 35.6 % (34.0-46.0) 10/07/17 08:21 MCV 90.7 fL (80.0-100.0) 10/07/17 08:21 MCH 29.8 pg (25.0-35.0) 10/07/17 08:21 MCHC 32.8 g/dL (31.0-37.0) 10/07/17 08:21 RDW 13.6 % (11.5-15.5) 10/07/17 08:21 Plt Count 314 k/uL (150-450) 10/07/17 08:21 Neutrophils % 72 % 10/07/17 08:21 Lymphocytes % 18 % 10/07/17 08:21 Monocytes % 7 % 10/07/17 08:21 Eosinophils % 1 % 10/07/17 08:21 Basophils % 0 % 10/07/17 08:21 Neutrophils # 5.4 k/uL (1.3-7.7) 10/07/17 08:21 Lymphocytes # 1.3 k/uL (1.0-4.8) 10/07/17 08:21 Monocytes # 0.5 k/uL (0-1.0) 10/07/17 08:21 Eosinophils # 0.1 k/uL (0-0.7) 10/07/17 08:21 Basophils # 0.0 k/uL (0-0.2) 10/07/17 08:21 Sodium 141 mmol/L (137-145) 10/07/17 08:21 Potassium 4.3 mmol/L (3.5-5.1) 10/07/17 08:21 Chloride 108 mmol/L (98-107) H 10/07/17 08:21 Carbon Dioxide 25 mmol/L (22-30) 10/07/17 08:21 Anion Gap 8 mmol/L 10/07/17 08:21 BUN 11 mg/dL (7-17) 10/07/17 08:21 Creatinine 0.53 mg/dL (0.52-1.04) 10/07/17 08:21 Est GFR (CKD-EPI)AfAm >90 (>60 ml/min/1.73 sqM) 10/07/17 08:21 Est GFR (CKD-EPI)NonAf >90 (>60 ml/min/1.73 sqM) 10/07/17 08:21 Glucose 126 mg/dL (74-99) H 10/07/17 08:21 Plasma Lactic Acid Julio 0.5 mmol/L (0.7-2.0) L 10/06/17 14:26 Calcium 9.0 mg/dL (8.4-10.2) 10/07/17 08:21 Total Bilirubin 0.3 mg/dL (0.2-1.3) 10/07/17 08:21 AST 17 U/L (14-36) 10/07/17 08:21 ALT 26 U/L (9-52) 10/07/17 08:21 Alkaline Phosphatase 64 U/L (38-126) 10/07/17 08:21 Total Protein 5.9 g/dL (6.3-8.2) L 10/07/17 08:21 Albumin 3.3 g/dL (3.5-5.0) L 10/07/17 08:21 Urine Color Light Yellow 10/06/17 14:26 Urine Appearance Clear (Clear) 10/06/17 14:26 Urine pH 6.0 (5.0-8.0) 10/06/17 14:26 Ur Specific [place] 1.005 (1.001-1.035) 10/06/17 14:26 Urine Protein Negative (Negative) 10/06/17 14:26 Urine Glucose (UA) Negative (Negative) 10/06/17 14:26 Urine Ketones Negative (Negative) 10/06/17 14:26 Urine Blood Small (Negative) H 10/06/17 14:26 Urine Nitrite Negative (Negative) 10/06/17 14:26 Urine Bilirubin Negative (Negative) 10/06/17 14:26 Urine Urobilinogen <2.0 mg/dL (<2.0) 10/06/17 14:26 Ur Leukocyte Esterase Negative (Negative) 10/06/17 14:26 Urine RBC 2 /hpf (0-5) 10/06/17 14:26 Urine WBC <1 /hpf (0-5) 10/06/17 14:26 Ur Squamous Epith Cells 1 /hpf (0-4) 10/06/17 14:26 Urine Bacteria Occasional /hpf (None) H 10/06/17 14:26 Microbiology 10/06/17 14:26 Blood Blood Culture - Preliminary No Growth after 72 hours 10/06/17 14:26 Urine,Voided Urine Culture - Final Assessment and Plan (1) Septic arthritis of right sternoclavicular joint Narrative/Plan: 47-year-old female well known to the service from herself and infection to the right anterior chest wall at the right sternoclavicular joint earlier this year. She was treated with a protracted course of intravenous antibiotic therapy originally vancomycin therapy without improvement which was then switched to daptomycin therapy. With this she had significant improvement in what appeared to be resolution of the infection. She had resolution of the pain and the swelling at the site and normalization of her sed rate and CRP. The following 3 months she's been doing relatively well until she now has a sudden onset of significant swelling to that site that is painful and tender to touch but is not fluctuant, as it was in the past. The chest CT continues to show evidence of the abnormality from the right side to the left with some thickening and inflammatory change no focal fluid collection was noted. She is complaining of not feeling well on the current antibiotic therapy symmetry as before. Constantly daptomycin will be changed to Zyvox and she be monitored for the response. MRI to the areas being requested to evaluate for underlying fluid collection, and to assess infection or abscess of the right sternoclavicular joint or in that region. Pain control be altered to Toradol and notes this will have less impact on her stomach is bothering her at this time. She is an active smoker and a nicotine patch has been applied. 10/09/2017 some discomfort to the right anterior chest wall subclavicular joint but this is less painful than yesterday. The patient is still having some gastrointestinal symptoms that are similar to yesterday. She however is not having any further nausea or emesis and denies other acute new complaints. The MRI to the area of the right sternoclavicular joint has been performed revealing evidence of underlying osteomyelitis and some abscess to that area. Consequently thoracic surgery consult with Dr. light has been requested for further evaluation and potential need for intervention. Given that she has been treated in the past with aspiration to the site, and a long course of injuries have back therapy concern that this is recurrent intermediate more aggressive surgical intervention. Current Visit: Yes Status: Acute Code(s): M00.9 - PYOGENIC ARTHRITIS, UNSPECIFIED SNOMED Code(s): 330544037 (2) Right-sided chest wall pain Current Visit: Yes Status: Acute Code(s): R07.89 - OTHER CHEST PAIN SNOMED Code(s): 225764100 (3) Nausea in adult Current Visit: Yes Status: Acute Code(s): R11.0 - NAUSEA SNOMED Code(s): 093501110
[2017-10-10] MEDS: LINEZOLID 600 MG in DEXTROSE/WATER 1 300ML.BAG IVPB SCH ×2 (06:21→17:30)
[2017-10-10] MEDS: KETOROLAC 30 MG/ML 1 ML VIAL IVP SCH ×4 (06:21→23:42)
[2017-10-10] MEDS: PANTOPRAZOLE 40 MG TABLET PO SCH ×2 (08:09→17:09)
[2017-10-10] MEDS: SENNOSIDES-DOCUSATE SODIUM 1 EACH TAB PO SCH ×2 (08:09→20:29)
[2017-10-10] MEDS: NICOTINE 14MG/24HR PATCH TRANSDERM SCH (08:09)
--- NOTE | 2017-10-10 15:03 | P.GSCN ---
<Rufino Mercado - Last Filed: 10/10/17 14:38> History of Present Illness Consult date: 10/10/17 Reason for Consult: Abscess of first rib/sternum. Requesting physician: Ramos Gurrola History of present illness: This is a 47-year-old female patient who is followed by Dr. Krishnan on an outpatient basis. She has a past medical history significant for septic arthritis of her right sternoclavicular joint with a positive culture of MRSA post needle aspirate in March 2017, current tobacco dependence, history of depression with previous suicide attempt in 2017, and history of bipolar disorder. She presented to the emergency department here at [facility] on 10/06/2017 with complaints of right sided anterior swelling and chest wall pain, and nausea. She denies any fevers, chills, rigors, shortness of breath, dizziness, or syncope. The patient has a history of similar symptoms about a year ago after having a previous IV to her left arm which developed phlebitis and subsequent swelling to her right anterior chest. She underwent an ultrasound guided needle aspirate in March 2017 which demonstrated MRSA. A PICC line was placed at that time and she was followed by Dr. Ramos Gurrola from infectious disease on an outpatient basis for antibiotic therapy in the way of daptomycin. She reports she was receiving antibiotic therapy for about 2-3 months. She was subsequently admitted to the hospital and underwent a computed tomography scan of her chest which demonstrated some asymmetric thickening, surrounding mild inflammatory changes and irregularity of the medial pectoralis major musculature. It also demonstrated some asymmetric abnormalities of the right sternoclavicular joint and first rib at the costochondral junction. For further evaluation the patient underwent an MRI of her right clavicle which demonstrated an abscess involving the anterior articulation of the first rib at the level of the sternum superficially and inflammatory changes with osteomyelitis. Due to the patient's history, presenting symptoms, CAT scan of her chest and MRI results a consult was placed to Dr. Haynes from cardiothoracic surgery for further treatment recommendations. Review of Systems A 14 point review of systems was completed and was negative except as mentioned in HPI. Past Medical History Past Medical History: Blood Disorder (History of anemia), Memory Impairment Additional Past Medical History / Comment(s): Septic arthritis, right shoulder/ chest MRSA, memory loss, right chest wall abscess treated once w/ PICC line + IV abx recently, tendonitis. History of Any Multi-Drug Resistant Organisms: MRSA Year Discovered:: 04/12/17 MDRO Source:: ASPIRATE Past Surgical History: Section (2), Hysterectomy, Orthopedic Surgery ( Right elbow), Tonsillectomy Past Anesthesia/Blood Transfusion Reactions: No Reported Reaction Past Psychological History: Anxiety, Bipolar, Depression Additional Psychological History / Comment(s): Pt. had previous suicidal attempt - states that the details are foggy and doesn't remember a lot. Smoking Status: Current every day smoker Past Alcohol Use History: None Reported Additional Past Alcohol Use History / Comment(s): Started smoking as a teen - smokes 1 PPD. Past Drug Use History: None Reported - Past Family History Father Family Medical History: Cancer Additional Family Medical History / Comment(s): Lung Mother Additional Family Medical History / Comment(s): Neurofibromatosis Medications and Allergies Home Medications Medication Instructions Recorded Confirmed Type Ibuprofen [Motrin] 400 - 800 mg PO Q6HR PRN 04/04/17 10/06/17 History Linezolid [Zyvox] 600 mg PO Q12HR #20 tab 10/11/17 Rx Allergies Allergy/AdvReac Type Severity Reaction Status Date / Time Penicillins Allergy Anaphylaxis Verified 10/06/17 23:43 sulfamethoxazole Allergy Rash/Hives Verified 10/06/17 23:43 [From Bactrim] trimethoprim [From Bactrim] Allergy Rash/Hives Verified 10/06/17 23:43 aspirin AdvReac Nausea & Verified 10/06/17 23:43 Vomiting Surgical - Exam Vital Signs Temp Pulse Resp BP Pulse Ox 99.0 F 103 H 18 158/91 97 10/06/17 13:18 10/06/17 13:18 10/06/17 13:18 10/06/17 13:18 10/06/17 13:18 - General well developed, well nourished, no distress, no pain, obese - Eyes PERRL, normal ocular movement - ENT normal pinna, normal nares, normal mucosa, no hearing loss, no congestion - Neck Neck is supple, no lymphadenopathy or thyromegaly. no masses, no bruits, trachea midline, no venous distension - Respiratory Lung sounds are essentially clear throughout. Respirations are symmetrical and nonlabored. - Cardiovascular Regular rhythm and rate. S1 and S2 present, negative for S3, gallop or murmur. No edema present. - Abdomen Abdomen is soft, nontender and nondistended. Active bowel sounds all 4 abdominal quadrants. No organomegaly. No guarding or rigidity. - Genitourinary Deferred - Rectum Deferred - Integumentary Skin is warm and dry. There is no clubbing or cyanosis. Evidence of some mild induration over her right sternoclavicular joint. No fluctuation. No tenderness to palpation. no rash, no growths, no abnormal pigmentation - Neurologic normal coordination, normal sensation - Musculoskeletal normal gait, normal posture - Psychiatric Periods of forgetfulness. oriented to time, oriented to person, oriented to place, speech is normal Results - Labs 10/07/17 08:21 10/07/17 08:21 Abnormal Lab Results - Last 24 Hours (Table) 10/10/17 10/10/17 Range/Units 09:18 09:18 ESR 35 H (0-20) mm/hr C-Reactive Protein 14.1 H (<10.0) mg/L Microbiology - Last 24 Hours (Table) 10/06/17 14:26 Blood Culture - Preliminary Blood No Growth after 72 hours - Imaging Chest x-ray: report reviewed, image reviewed CT scan - chest: report reviewed, image reviewed Additional studies: MRI films and report reviewed by Dr. Haynes. Assessment and Plan (1) Nausea in adult Status: Acute Code(s): R11.0 - NAUSEA SNOMED Code(s): 123823478 (2) Right-sided chest wall pain Status: Acute Code(s): R07.89 - OTHER CHEST PAIN SNOMED Code(s): 205745750 (3) Septic arthritis of right sternoclavicular joint Status: Acute Code(s): M00.9 - PYOGENIC ARTHRITIS, UNSPECIFIED SNOMED Code(s ): 819720340 Plan: The patient was seen and examined. Her chart and diagnostics were reviewed. The patient was seen and examined by Dr. Haynes. Dr. Haynes will discuss the findings on the MRI and CT scan of the chest with Dr. Gurrola from infectious disease. Continue current antibiotic therapy managed by infectious disease. Medical management per primary care service. Further recommendations to follow based on clinical course and discussion with Dr. Gurrola. Thank you Dr. Gurrola for this consult and we look forward to participating in the care of your patient. Time with Patient: Greater than 30 <Harsha Haynes - Last Filed: 10/12/17 09:58> Surgical - Exam Vital Signs Temp Pulse Resp BP Pulse Ox 99.0 F 103 H 18 158/91 97 10/06/17 13:18 10/06/17 13:18 10/06/17 13:18 10/06/17 13:18 10/06/17 13:18 Results - Labs 10/07/17 08:21 10/07/17 08:21 Microbiology - Last 24 Hours (Table) 10/06/17 14:26 Blood Culture - Preliminary Blood No Growth after 120 hours Assessment and Plan Plan: The patient was seen and examined. The history and physical exam findings were verified. I agree with the above assessment and plan. The patient reports continued right upper chest/shoulder pain. On examination, she does not appear to have excessive erythema or swelling. Her MRI reveals a small fluid collection at the junction of the first rib and sternum. I spoke with Dr. Gurrola regarding her care. We have decided to continue with antibiotics for now. She will continue to follow up with Dr. Gurrola. If she does not improve or if she gets clinically worse, then we will revisit surgical intervention.
--- NOTE | 2017-10-10 18:08 | PN ---
PROGRESS NOTE DATE OF SERVICE: 10/10/2017. CHIEF COMPLAINT: Infection in the right sternoclavicular joint. HISTORY OF PRESENT ILLNESS: This lady continues to improve. At the present time she is not at the bedside. Her CT suggests that she has a abscess at the junction of the 1st rib with the sternum. IMPRESSION: Abscess at the 1st costosternal junction on the right. PLAN: Continue with antibiotics and she will require some type of intervention, either open or with aspiration. MMODL / IJN: [id number] /
[2017-10-10] MEDS: ONDANSETRON 4 MG/2 ML VIAL IVP PRN (22:11)
--- NOTE | 2017-10-10 23:18 | P.PN ---
Subjective Progress Note Date: 10/10/17 47-year-old female known to the infectious disease service starting in March 2017 which point in time she was having difficulties relating to her anterior chest wall. To summarize, Months before she presented she had been hospitalized at [facility] after a suicide attempt. She developed a distinct phlebitis to her left arm. Thereafter developed the progressive pain and swelling to the right anterior chest wall at the right sternoclavicular joint. The patient was referred to infectious diseases in March and she was sent to the interventional radiologist were a joint aspiration occurred and MRSA was found at that site. She was treated originally with vancomycin therapy and had no improvement, and vancomycin OK was 2. She eventually was switched to daptomycin therapy and completed nearly 8 weeks of daptomycin with a marked improvement of her pain swelling to the site. Her sed rate and CRP normalized and she felt relatively well. She has some difficulties with fatigue and some nausea from the antibiotic of the this she had progressive improvement. She relates however shortly after completing her antibiotic therapy she stopped working because she just wasn't feeling well. And since that time which would be June she just has not been doing very well. She continues to have difficulty with her mood. In the site which was doing well again has become a bit more swollen or tender and she's having difficulty with use of the right arm because of the discomfort at that site and presented to the emergency center. She's been not having high-grade fever at this time. Psychiatry has been consulted for her chronic depression issues. 10/09/2017 patient feels slightly better today. She continues to have some GI symptoms but is better today. She did eat some food and just fluids without difficulty. She's not had nausea for many hours and has not had emesis today. She relates the pain to the right sternoclavicular area is somewhat improved today. She is not clear if this is because of her lack of activity by the fact that she is starting to feel better. She is not having fever today. It is not related to any other new acute symptoms today. 10/10/2017 patient is feeling somewhat better today. She is able to eat without significant nausea or emesis. Continues to have pain and discomfort to the right sternoclavicular joint area. Feels better than admission. Denies fevers or chills. She has been seen by cardiovascular surgery and we await their input. Objective - Vital Signs Vital signs: Vital Signs Temp 98.3 F 10/10/17 14:50 Pulse 75 10/10/17 14:50 Resp 18 10/10/17 16:00 BP 132/70 10/10/17 14:50 Pulse Ox 96 10/10/17 14:50 Intake & Output 10/10/17 10/10/17 10/11/17 06:59 18:59 06:59 Intake Total 950 Balance 950 Intake: Oral 950 Other: Voiding Method Toilet Toilet # Voids 2 2 - Exam 47-year-old woman relates she feels miserable, but is sitting upright in communicating clearly. HEENT: Anicteric conjunctiva are pink and moist nasal mucosa grossly intact without significant lesions, there is no thrush. Neck: The neck is supple without significant lymphadenopathy or thyromegaly. Lungs: Good bilateral air entry without significant crackles or wheezing. There is no significant bronchial sounds. There is no egophony or dullness. Heart: Regular rate and rhythm with an audible S1-S2, no S3 no S4. There is no significant murmur click or rub, PMI was nondisplaced. Abdomen: Positive bowel sounds soft and nontender without palpable masses or organomegaly. There was no guarding or rebound. Extremities: The upper extremities have excellent pulses they are symmetric, no significant petechiae or telangiectasia. No splinter hemorrhages were noted. The lower extremities are free from significant edema. The peripheral pulses were 2+ and symmetric. Neuro: Awake alert oriented to person place and time. There are no acute new gross focal sensory motor deficits. Skin over the right sternoclavicular joint shows evidence of some mild induration, it is somewhat tender to touch, it is not fluctuant, there is no radiating erythema. She does have some tenderness over the clavicle to the right shoulder but there is no skin erythema that tracks along the clavicle. There is no lymphadenopathy right axillary or supraclavicular. No other abnormal lymph nodes are seen. The left sternoclavicular joint is without tenderness or abnormality. The sternum is nontender. - Labs CBC & Chem 7: 10/07/17 08:21 10/07/17 08:21 Labs: Abnormal Lab Results - Last 24 Hours (Table) 10/10/17 10/10/17 Range/Units 09:18 09:18 ESR 35 H (0-20) mm/hr C-Reactive Protein 14.1 H (<10.0) mg/L Microbiology - Last 24 Hours (Table) 10/06/17 14:26 Blood Culture - Preliminary Blood No Growth after 96 hours Laboratory Results WBC 7.5 k/uL (3.8-10.6) 10/07/17 08:21 RBC 3.93 m/uL (3.80-5.40) 10/07/17 08:21 Hgb 11.7 gm/dL (11.4-16.0) 10/07/17 08:21 Hct 35.6 % (34.0-46.0) 10/07/17 08:21 MCV 90.7 fL (80.0-100.0) 10/07/17 08:21 MCH 29.8 pg (25.0-35.0) 10/07/17 08:21 MCHC 32.8 g/dL (31.0-37.0) 10/07/17 08:21 RDW 13.6 % (11.5-15.5) 10/07/17 08:21 Plt Count 314 k/uL (150-450) 10/07/17 08:21 Neutrophils % 72 % 10/07/17 08:21 Lymphocytes % 18 % 10/07/17 08:21 Monocytes % 7 % 10/07/17 08:21 Eosinophils % 1 % 10/07/17 08:21 Basophils % 0 % 10/07/17 08:21 Neutrophils # 5.4 k/uL (1.3-7.7) 10/07/17 08:21 Lymphocytes # 1.3 k/uL (1.0-4.8) 10/07/17 08:21 Monocytes # 0.5 k/uL (0-1.0) 10/07/17 08:21 Eosinophils # 0.1 k/uL (0-0.7) 10/07/17 08:21 Basophils # 0.0 k/uL (0-0.2) 10/07/17 08:21 ESR 35 mm/hr (0-20) H 10/10/17 09:18 Sodium 141 mmol/L (137-145) 10/07/17 08:21 Potassium 4.3 mmol/L (3.5-5.1) 10/07/17 08:21 Chloride 108 mmol/L (98-107) H 10/07/17 08:21 Carbon Dioxide 25 mmol/L (22-30) 10/07/17 08:21 Anion Gap 8 mmol/L 10/07/17 08:21 BUN 11 mg/dL (7-17) 10/07/17 08:21 Creatinine 0.53 mg/dL (0.52-1.04) 10/07/17 08:21 Est GFR (CKD-EPI)AfAm >90 (>60 ml/min/1.73 sqM) 10/07/17 08:21 Est GFR (CKD-EPI)NonAf >90 (>60 ml/min/1.73 sqM) 10/07/17 08:21 Glucose 126 mg/dL (74-99) H 10/07/17 08:21 Plasma Lactic Acid Julio 0.5 mmol/L (0.7-2.0) L 10/06/17 14:26 Calcium 9.0 mg/dL (8.4-10.2) 10/07/17 08:21 Total Bilirubin 0.3 mg/dL (0.2-1.3) 10/07/17 08:21 AST 17 U/L (14-36) 10/07/17 08:21 ALT 26 U/L (9-52) 10/07/17 08:21 Alkaline Phosphatase 64 U/L (38-126) 10/07/17 08:21 C-Reactive Protein 14.1 mg/L (<10.0) H 10/10/17 09:18 Total Protein 5.9 g/dL (6.3-8.2) L 10/07/17 08:21 Albumin 3.3 g/dL (3.5-5.0) L 10/07/17 08:21 Urine Color Light Yellow 10/06/17 14:26 Urine Appearance Clear (Clear) 10/06/17 14:26 Urine pH 6.0 (5.0-8.0) 10/06/17 14:26 Ur Specific [place] 1.005 (1.001-1.035) 10/06/17 14:26 Urine Protein Negative (Negative) 10/06/17 14:26 Urine Glucose (UA) Negative (Negative) 10/06/17 14:26 Urine Ketones Negative (Negative) 10/06/17 14:26 Urine Blood Small (Negative) H 10/06/17 14:26 Urine Nitrite Negative (Negative) 10/06/17 14:26 Urine Bilirubin Negative (Negative) 10/06/17 14:26 Urine Urobilinogen <2.0 mg/dL (<2.0) 10/06/17 14:26 Ur Leukocyte Esterase Negative (Negative) 10/06/17 14:26 Urine RBC 2 /hpf (0-5) 10/06/17 14:26 Urine WBC <1 /hpf (0-5) 10/06/17 14:26 Ur Squamous Epith Cells 1 /hpf (0-4) 10/06/17 14:26 Urine Bacteria Occasional /hpf (None) H 10/06/17 14:26 Microbiology 10/06/17 14:26 Blood Blood Culture - Preliminary No Growth after 96 hours 10/06/17 14:26 Urine,Voided Urine Culture - Final Assessment and Plan (1) Septic arthritis of right sternoclavicular joint Narrative/Plan: 47-year-old female well known to the service from herself and infection to the right anterior chest wall at the right sternoclavicular joint earlier this year. She was treated with a protracted course of intravenous antibiotic therapy originally vancomycin therapy without improvement which was then switched to daptomycin therapy. With this she had significant improvement in what appeared to be resolution of the infection. She had resolution of the pain and the swelling at the site and normalization of her sed rate and CRP. The following 3 months she's been doing relatively well until she now has a sudden onset of significant swelling to that site that is painful and tender to touch but is not fluctuant, as it was in the past. The chest CT continues to show evidence of the abnormality from the right side to the left with some thickening and inflammatory change no focal fluid collection was noted. She is complaining of not feeling well on the current antibiotic therapy symmetry as before. Constantly daptomycin will be changed to Zyvox and she be monitored for the response. MRI to the areas being requested to evaluate for underlying fluid collection, and to assess infection or abscess of the right sternoclavicular joint or in that region. Pain control be altered to Toradol and notes this will have less impact on her stomach is bothering her at this time. She is an active smoker and a nicotine patch has been applied. 10/09/2017 some discomfort to the right anterior chest wall subclavicular joint but this is less painful than yesterday. The patient is still having some gastrointestinal symptoms that are similar to yesterday. She however is not having any further nausea or emesis and denies other acute new complaints. The MRI to the area of the right sternoclavicular joint has been performed revealing evidence of underlying osteomyelitis and some abscess to that area. Consequently thoracic surgery consult with Dr. light has been requested for further evaluation and potential need for intervention. Given that she has been treated in the past with aspiration to the site, and a long course of injuries have back therapy concern that this is recurrent intermediate more aggressive surgical intervention. 10/10/2017 the patient is showing some improvement today. The case is discussed with Dr. Haynes of cardiovascular surgery. The MRI has been reviewed personally and discussed with the surgeon. The patient here minimal inflammation in the area more around the first rib then at the sternoclavicular joint. Goal this time will be to treat with antibiotic therapy. If she has no improvement or worsening with and follow with the surgeon at that time for potential evaluation and intervention. If she has further improvement and is able to tolerate the Zyvox, may be discharged home on this therapy. A prescription is sent to the pharmacy to see if this is a covered benefit. If not a covered benefit we'll need to determine best possible action. Current Visit: Yes Status: Acute Code(s): M00.9 - PYOGENIC ARTHRITIS, UNSPECIFIED SNOMED Code(s): 330789424 (2) Right-sided chest wall pain Current Visit: Yes Status: Acute Code(s): R07.89 - OTHER CHEST PAIN SNOMED Code(s): 311111950 (3) Nausea in adult Current Visit: Yes Status: Acute Code(s): R11.0 - NAUSEA SNOMED Code(s): 431057065
[2017-10-10 23:45] VITALS: RESP 16
[2017-10-11] MEDS: LINEZOLID 600 MG in DEXTROSE/WATER 1 300ML.BAG IVPB SCH (05:56)
[2017-10-11] MEDS: KETOROLAC 30 MG/ML 1 ML VIAL IVP SCH ×2 (05:56→11:47)
[2017-10-11] MEDS: SENNOSIDES-DOCUSATE SODIUM 1 EACH TAB PO SCH (08:34)
[2017-10-11] MEDS: PANTOPRAZOLE 40 MG TABLET PO SCH (08:35)
[2017-10-11] MEDS: NICOTINE 14MG/24HR PATCH TRANSDERM SCH (08:35)
[2017-10-11] MEDS: ACETAMINOPHEN TAB 325 MG TAB PO PRN (08:42)
--- NOTE | 2017-10-11 08:53 | P.PN ---
Subjective Progress Note Date: 10/11/17 Principal diagnosis: Abscess of right first rib/sternum. Previous medical history of septic arthritis of the right sternoclavicular joint with positive culture MRSA post- needle aspirate March 2017, current tobacco dependence, depression with previous suicide attempt, bipolar disorder. Patient's currently laying in bed in no acute distress. States pain is well- controlled and she is feeling better than when she came in. No new complaints. Objective - Vital Signs Vital signs: Vital Signs Temp 97.6 F 10/11/17 06:37 Pulse 53 L 10/11/17 06:37 Resp 16 10/11/17 06:37 BP 129/51 10/11/17 06:37 Pulse Ox 97 10/11/17 06:37 Intake & Output 10/10/17 10/11/17 10/11/17 18:59 06:59 18:59 Intake Total 200 Balance 200 Intake: Oral 200 Other: Voiding Method Toilet # Voids 2 1 # Bowel Movements 1 - Constitutional General appearance: Present: cooperative, no acute distress - Respiratory Details: Lungs sounds diminished bilaterally. Respirations even, nonlabored. Currently on room air with oxygen saturation 97%. - Cardiovascular Details: S1, S2 present. Regular rate and rhythm. Palpable peripheral pulses bilaterally. No edema present. No calf pain or tenderness noted. - Gastrointestinal Gastrointestinal Comment(s): Abdomen soft, nontender, nondistended. Active bowel sounds 4 quadrants. Tolerating diet. - Genitourinary Genitourinary Comment(s): Continues to void clear, yellow urine. - Integumentary Integumentary Comment(s): Skin is warm and dry with evidence of good perfusion. - Neurologic Neurologic: Present: CNII-XII intact - Musculoskeletal Musculoskeletal: Present: gait normal, strength equal bilaterally - Psychiatric Psychiatric: Present: A&O x's 3, appropriate affect, intact judgment & insight - Allied health notes Allied health notes reviewed: nursing - Labs CBC & Chem 7: 10/07/17 08:21 10/07/17 08:21 Labs: Abnormal Lab Results - Last 24 Hours (Table) 10/10/17 10/10/17 Range/Units :18 09:18 ESR 35 H (0-20) mm/hr C-Reactive Protein 14.1 H (<10.0) mg/L Microbiology - Last 24 Hours (Table) 10/06/17 14:26 Blood Culture - Preliminary Blood No Growth after 96 hours - Imaging and Cardiology MRI of the clavicle reviewed Assessment and Plan (1) Abscess Current Visit: Yes Status: Acute Code(s): L02.91 - CUTANEOUS ABSCESS, UNSPECIFIED SNOMED Code(s): 641436554 (2) History of MRSA infection Current Visit: Yes Status: Chronic Code(s): Z86.14 - PERSONAL HISTORY OF METHICILLIN RESIS STAPH INFECTION SNOMED Code(s): 546923445 (3) Tobacco dependence Current Visit: Yes Status: Chronic Code(s): F17.200 - NICOTINE DEPENDENCE, UNSPECIFIED, UNCOMPLICATED SNOMED Code(s): 38533963 (4) History of depression Current Visit: Yes Status: Chronic Code(s): Z86.59 - PERSONAL HISTORY OF OTHER MENTAL AND BEHAVIORAL DISORDERS SNOMED Code(s): 266027451 (5) History of bipolar disorder Current Visit: Yes Status: Chronic Code(s): Z86.59 - PERSONAL HISTORY OF OTHER MENTAL AND BEHAVIORAL DISORDERS SNOMED Code(s): 662828589 (6) History of attempted suicide Current Visit: No Status: Resolved Code(s): Z91.5 - PERSONAL HISTORY OF SELF -HARM SNOMED Code(s): 333625375 (7) Septic arthritis of right sternoclavicular joint Current Visit: Yes Status: Chronic Code(s): M00.9 - PYOGENIC ARTHRITIS, UNSPECIFIED SNOMED Code(s): 222752521 Plan: 1. Case discussed between Dr. Haynes and Dr. Gurrola. At this time will continue antibiotic therapy with linezolid. If no improvement or patient's condition worsens then we will consider surgical options. 2. Continue antibiotic management per Dr. Gurrola. 3. Encourage smoking cessation. 4. Pain control with ordered medications. 5. Medical management per primary care service. 6. Patient may be discharged to home from our standpoint when okay with other consultants and appropriate antibiotic therapy is chosen based on insurance. Time with Patient: Greater than 30
[2017-10-11] MEDS ORDERED: MORPHINE ORAL SOLN 10 MG/5 ML CUP PO PRN (14:10)
--- NOTE | 2017-10-11 14:35 | PN ---
PROGRESS NOTE CHIEF COMPLAINT: Infected first rib costochondral junction. HISTORY OF PRESENT ILLNESS: This lady is a doing fairly well and the swelling and pain under good control. There was consideration given to treating her surgery, but now it sounds as though her management will be conservative. PHYSICAL EXAM: The area of tenderness and swelling is going down. Chest is clear and she is afebrile. IMPRESSION: 1. Infected right first costochondral junction. 2. Chronic obstructive pulmonary disease. 3. Borderline personality. PLAN: 1. Probable long-term IV antibiotics with PICC line. 2. Await recommendations from Infectious Disease and Psychiatry. MMODL / IJN: [id number] /
[2017-10-11 15:42] VITALS: BP 122/74; PULSE 67; TEMP 98.3
[2017-10-11] MEDS ORDERED: LINEZOLID 600 MG TAB PO SCH (21:00)
== END 2017-10-11 16:32 | disposition home or self-care (01) | DRG 549 ==
LOC: EC 12:56 → 4MS4W 16:46
PROVIDERS: ADMIT Family Medicine; ATTEND Family Medicine
DX: M00.811 Arthritis due to other bacteria, right shoulder (principal); L02.213 Cutaneous abscess of chest wall; M86.9 Osteomyelitis, unspecified; B95.62 Methicillin resistant Staphylococcus aureus infection as the cause of diseases classified elsewhere; F17.200 Nicotine dependence, unspecified, uncomplicated; F31.9 Bipolar disorder, unspecified; F60.3 Borderline personality disorder; J44.9 Chronic obstructive pulmonary disease, unspecified; K59.00 Constipation, unspecified; Z86.72 Personal history of thrombophlebitis; Z88.1 Allergy status to other antibiotic agents; Z90.710 Acquired absence of both cervix and uterus; Z91.5 Personal history of self-harm; Z88.6 Allergy status to analgesic agent; Z88.0 Allergy status to penicillin; Z88.2 Allergy status to sulfonamides; Z79.1 Long term (current) use of non-steroidal anti-inflammatories (NSAID); Z79.899 Other long term (current) drug therapy
CPT/HCPCS: 36415; 71046; 71260; 71552; 80053; 81001; 83605; 85025; 85652; 86140; 87040; 87086; 96365; 96375; 99284

== ENCOUNTER → 2017-11-02 | Outpatient (CLI) | payer OTHER ==
[2017-11-02 11:41] LABS: Basophils % (A) 0 %; Eosinophils # (A) 0.1 k/uL (0-0.7); Eosinophils % (A) 1 %; HCT 41.3 % (34.0-46.0); HGB 13.7 gm/dL (11.4-16.0); Lymphocytes # (A) 1.6 k/uL (1.0-4.8); Lymphocytes % (A) 13 %; MCH 29.9 pg (25.0-35.0); MCHC 33.1 g/dL (31.0-37.0); MCV 90.2 fL (80.0-100.0); Mean Platelet Volume 6.9; Monocytes # (A) 0.6 k/uL (0-1.0); Monocytes % (A) 5 %; Neutrophils # (A) 9.9 k/uL (1.3-7.7); Neutrophils % (A) 80 %; Platelet Count 341 k/uL (150-450); RBC 4.58 m/uL (3.80-5.40); WBC 12.4 k/uL (3.8-10.6)
[2017-11-02 12:09] LABS: ALT 31 U/L (9-52); AST 21 U/L (14-36); Albumin 4.5 g/dL (3.5-5.0); Alkaline Phosphatase 75 U/L (38-126); Anion Gap 12 mmol/L; Blood Urea Nitrogen 10 mg/dL (7-17); Calcium 9.8 mg/dL (8.4-10.2); Carbon Dioxide 23 mmol/L (22-30); Chloride 106 mmol/L (98-107); Glucose 111 mg/dL (74-99); Potassium 4.3 mmol/L (3.5-5.1); Sodium 141 mmol/L (137-145); Total Bilirubin 0.3 mg/dL (0.2-1.3); Total Protein 7.6 g/dL (6.3-8.2)
[2017-11-02 12:22] LABS: C Reactive Protein <5.0 mg/L (<10.0)
[2017-11-02 12:40] LABS: Erythrocyte Sedimentation Rate 10 mm/hr (0-20)
== END | disposition home or self-care (01) ==
LOC: LABWHC1 11:01
PROVIDERS: ATTEND Internal Medicine Infectious Disease
DX: A49.02 Methicillin resistant Staphylococcus aureus infection, unspecified site (principal)
CPT/HCPCS: 36415; 80053; 85025; 85652; 86140

== ENCOUNTER → 2018-02-01 | Outpatient (CLI) | payer OTHER ==
[2018-02-01 09:35] LABS: Blood Urea Nitrogen 13 mg/dL (7-17); Cholesterol 325 mg/dL (<200); Glucose 128 mg/dL (74-99); HDL Cholesterol 61 mg/dL (40-60); LDL Cholesterol,Calculated 226 mg/dL (0-99); Lithium 0.5 mmol/L; Triglycerides 191 mg/dL (<150)
[2018-02-01 09:51] LABS: T4, Free (Free Thyroxine) 0.86 ng/dL (0.78-2.19)
[2018-02-01 18:37] LABS: Hemoglobin A1C 5.8 % (4.0-6.0)
== END ==
LOC: LABWHC1 08:01
PROVIDERS: ATTEND Psychiatry & Neurology Psychiatry
DX: Z51.81 Encounter for therapeutic drug level monitoring (principal); Z79.899 Other long term (current) drug therapy
CPT/HCPCS: 36415; 80061; 80178; 82565; 82947; 83036; 84439; 84443; 84520

== ENCOUNTER → 2018-03-06 | Outpatient (CLI) | payer OTHER ==
--- NOTE | 2018-03-07 14:38 | NM ---
EXAMINATION TYPE: NM thyroid image w uptake DATE OF EXAM: 03/07/2018 COMPARISON: CT chest October 07, 2017 HISTORY: Hypothyroidism per order. Change in here nails appetite and weight per patient with irritabi lity, insomnia, and palpitations. TECHNIQUE: Thyroid iodine uptake is calculated and images performed after the oral administration of 303 uCi 1-123 Capsule. FINDINGS: There is normal distribution of activity throughout the gland which is felt normal in size. The 4 hour iodine uptake is calculated at 11% (normal range 8-14%). The 24-hour iodine uptake is ca lculated at 25% (normal range 15-35%). IMPRESSION: Normal thyroid scan and uptake.
== END | disposition home or self-care (01) ==
LOC: RADNMMAIN 09:29
PROVIDERS: ATTEND Family Medicine
DX: E05.90 Thyrotoxicosis, unspecified without thyrotoxic crisis or storm (principal); Z88.6 Allergy status to analgesic agent; Z88.2 Allergy status to sulfonamides; Z88.0 Allergy status to penicillin
CPT/HCPCS: 78014; A9516

== ENCOUNTER → 2018-04-22 | Outpatient (CLI) | payer OTHER ==
--- NOTE | 2018-04-23 06:01 | MR ---
EXAMINATION TYPE: MR clavicle RT wo con DATE OF EXAM: 04/22/2018 COMPARISON: 10/09/2017 HISTORY: Rt clavicle pain, worse on medial aspect Standard multiplanar, multisequence MRI departmental protocol Multiplanar, multisequence images of the right clavicle were acquired. FINDINGS: There is increased fluid signal in the sternoclavicular joint on the right side. Fluid acacia ures 7 mm in thickness. The clavicle appears intact without focal bone destruction. The AC joint spac e is normal. There is no evidence of a soft tissue mass. There is 3 cm area of mixed signal at the an terior right first rib at the junction with the sternum. This area appears diminished compared to old MR scan. Fluid at the sternoclavicular joint is also diminished. IMPRESSION: The exam shows decreased synovitis involving the sternoclavicular joint with decreased fluid compared to old exam. There is also decreased size of the inflammatory area seen at the anterior right first rib. No evidence of any no inflammatory process.
== END | disposition home or self-care (01) ==
LOC: RADMRIMAIN 10:25
PROVIDERS: ATTEND Surgery
DX: M65.9 Synovitis and tenosynovitis, unspecified (principal); L02.213 Cutaneous abscess of chest wall
CPT/HCPCS: 71550

== ENCOUNTER → 2018-04-25 | Outpatient (CLI) | payer OTHER ==
[2018-04-25 15:45] LABS: Folate, Serum 4.6 ng/mL
[2018-04-25 16:02] LABS: T4, Free (Free Thyroxine) 1.1 ng/dL (0.80-1.80)
[2018-04-25 16:07] LABS: Albumin 4.2 g/dL (3.80-4.90); Anion Gap 5.9 mmol/L (4.00-12.00); Calcium 9.5 mg/dL (8.7-10.3); Carbon Dioxide 27.1 mmol/L (21.6-31.8); Globulin 2.1 g/dL (1.6-3.3); Lithium 0.1 mmol/L (1.0-1.2); Potassium 4.3 mmol/L (3.5-5.5); Total Bilirubin 0.2 mg/dL (0.3-1.2); Total Protein 6.3 g/dL (6.2-8.2)
== END | disposition home or self-care (01) ==
LOC: LABWHC1 08:05
PROVIDERS: ATTEND Psychiatry & Neurology Psychiatry
DX: Z51.81 Encounter for therapeutic drug level monitoring (principal); Z79.899 Other long term (current) drug therapy
CPT/HCPCS: 36415; 80053; 80178; 82607; 82746; 84439; 84443

== ENCOUNTER 2018-05-30 08:43 | Day surgery (SDC) | payer OTHER ==
[2018-05-30 09:06] VITALS: RESP 16; TEMP 98.6
[2018-05-30] MEDS ORDERED: ALPRAZolam 0.5 MG TAB PO STA (09:31)
[2018-05-30 11:06] VITALS: BP 111/64; PULSE 67
--- NOTE | 2018-05-31 12:39 | US ---
Ultrasound guided right sternoclavicular joint aspiration Date: 05/30/2018 History: 47 year-old female right chest wall pain, right shoulder pain, history of MRSA infection. COMPARISON: MRI 10/09/2017 and 04/22/2018 PROCEDURE: 1. Ultrasound of the right SC joint. 2. Joint aspiration the ultrasound guidance. FINDINGS: Scanning of the right AC joint demonstrates joint capsule distended by hypoechoic to anechoic materia l. No significant hyperemia is identified on Doppler assessment. This was targeted for aspiration. Technique: The procedure, risks, and alternatives, were discussed with the patient, who requested that we procee d. The consent form was signed, and teach-back occurred. The site/side of the procedure was marked wi th a line with participation by the patient. The accompanying paperwork was verified for consistency. A directed history and physical exam was performed prior to the procedure. Medication reconciliation was performed by ancillary personnel. A critical pause was performed with assisting personnel just prior to the procedure and the patient's identity was confirmed using 2 identifiers. Imaging guidance was utilized to select the precise skin entry point just prior to the procedure. The right SC joint was prepped and draped in the usual sterile fashion and local 1% lidocaine anesthe molly was instilled. Under ultrasound guidance, an 18 gauge spinal needle was introduced into the right SC joint. Multiple attempts at aspiration yielded only a drop of clearish, blood-tinged fluid despite confirming approp riate position of the needle. Approximately 5 mL of sterile saline was injected Into the joint. Re-aspiration yielded approximatel y 1 mL of clearish, lightly blood-tinged fluid. No purulent material was aspirated. The needle was removed The syringe containing the wash aspirate was capped, labeled, and sent for laboratory assessment. The needle was then removed. The patient tolerated the procedure well. After the procedure, the patient's condition was unchanged. Estimated blood loss was minimal. IMPRESSION: Successful ultrasound guided right SC joint aspiration. Only a drop of clearish fluid was aspirated d espite the joint having a distended appearance. Suspect this to represent exuberant granulation tissu e. A 1 mL wash of the joint was sent for laboratory assessment.
== END 2018-05-30 10:55 | disposition home or self-care (01) ==
LOC: RADPROMAIN 08:43
PROVIDERS: ATTEND Surgery
DX: R07.89 Other chest pain (principal); M25.511 Pain in right shoulder; Z86.14 Personal history of Methicillin resistant Staphylococcus aureus infection
CPT/HCPCS: 20611; 76942; 87070; 87075; 87102; 87116; 87205; 87206; 88108

== ENCOUNTER → 2018-06-27 | Outpatient (CLI) | payer OTHER | END | disposition home or self-care (01) | LOC: LABWHC1 13:01 | PROVIDERS: ATTEND Psychiatry & Neurology Neurology | DX: R41.3 Other amnesia (principal) | CPT/HCPCS: 36415; 82607; 84439; 84443 ==

== ENCOUNTER → 2018-07-03 | Outpatient (CLI) | payer OTHER ==
--- NOTE | 2018-07-03 16:05 | MR ---
MR brain without contrast HISTORY: Memory loss Multiplanar multisequence imaging through the brain No comparisons There is no restricted diffusion. There is no hemorrhage or hydrocephalus. Corpus callosum, pituitary , cervical medullary junction are normal. Cerebellopontine angles are unremarkable. There are normal vascular flow voids. The orbits show symmetric appearance. Mucosal disease present within the right m axillary sinus, ethmoid air cells. Brain signal is maintained. IMPRESSION: Mild sinus disease. No significant brain abnormality.
== END | disposition home or self-care (01) ==
LOC: RADMRIMAIN 12:47
PROVIDERS: ATTEND Psychiatry & Neurology Neurology
DX: R41.3 Other amnesia (principal)
CPT/HCPCS: 70551

== ENCOUNTER → 2018-07-16 | Outpatient (CLI) | payer OTHER ==
[2018-07-16 19:10] LABS: Folate, Serum 7.2 ng/mL
[2018-07-16 19:12] LABS: T4, Free (Free Thyroxine) 0.9 ng/dL (0.80-1.80)
[2018-07-16 19:22] LABS: Albumin 4.3 g/dL (3.80-4.90); Albumin/Globulin Ratio 1.79 (1.60-3.17); Anion Gap 4.9 mmol/L (4.00-12.00); Calcium 9.5 mg/dL (8.7-10.3); Carbon Dioxide 25.1 mmol/L (21.6-31.8); Globulin 2.4 g/dL (1.6-3.3); Lithium 0.3 mmol/L (1.0-1.2); Potassium 3.8 mmol/L (3.5-5.5); Total Bilirubin 0.2 mg/dL (0.3-1.2); Total Protein 6.7 g/dL (6.2-8.2)
== END ==
LOC: LABWHC1 11:44
PROVIDERS: ATTEND Psychiatry & Neurology Psychiatry
DX: Z51.81 Encounter for therapeutic drug level monitoring (principal); Z79.899 Other long term (current) drug therapy
CPT/HCPCS: 36415; 80053; 80178; 82607; 82746; 84439; 84443

== ENCOUNTER 2018-11-18 17:36 | Emergency (ER) | payer OTHER ==
--- NOTE | 2018-11-18 18:38 | ED ---
Psych HPI <Yue Soto P - Last Filed: 11/18/18 22:11> - General Source: patient Mode of arrival: ambulatory <Sandra Mandel - Last Filed: 11/19/18 03:33> - General Chief Complaint: Psychiatric Symptoms Stated Complaint: mental health Time Seen by Provider: 11/18/18 18:17 - History of Present Illness Initial Comments: 48-year-old female patient presents to the emergency department today for evaluation of suicidal ideation. Patient states that she has been having these thoughts for about a month. They have been becoming more frequent. Patient states that 2 weeks ago she stopped taking her antidepressant medication. Patient states that this has made her more depressed. States that she has been having frequent thoughts of killing herself. Her plan is to take her medications. States that she has attempted suicide this way in the past. She denies any recent self-harm behavior or ingestion of abnormal amounts of medication. She denies any current physical symptoms or concerns. Denies any visual or auditory hallucinations. Denies any homicidal ideation. Denies any recent drug or alcohol use. She has been admitted for mental health in the past, but not at this facility. Patient denies any recent rash, fever, chills, shortness breath, chest pain, abdominal pain, nausea, vomiting, diarrhea, con stipation, back pain, numbness, tingling, dizziness, weakness, hematuria, dysuria, urinary urgency, urinary frequency, headache, visual changes, or any other complaints. (Sandra Mandel) - Related Data Home Medications Medication Instructions Recorded Confirmed Ibuprofen [Motrin] 800 mg PO Q6HR PRN 04/04/17 11/18/18 Atorvastatin Calcium [Lipitor] 40 mg PO HS 05/17/18 11/18/18 Chlorthalidone 25 mg PO HS 05/17/18 11/18/18 Gabapentin [Neurontin] 400 mg PO TID 11/18/18 11/18/18 [place] Carbonate 600 mg PO HS 11/18/18 11/18/18 Paliperidone IM [Invega Sustenna] 234 mg IM Q28D 11/18/18 11/18/18 Vortioxetine Hydrobromide 20 mg PO HS 11/18/18 11/18/18 [Trintellix] Allergies Allergy/AdvReac Type Severity Reaction Status Date / Time Penicillins Allergy Anaphylaxis Verified 11/18/18 18:47 sulfamethoxazole Allergy Rash/Hives Verified 11/18/18 18:47 [From Bactrim] trimethoprim [From Bactrim] Allergy Rash/Hives Verified 11/18/18 18:47 aspirin AdvReac Nausea & Verified 11/18/18 18:47 Vomiting Review of Systems ROS Other: All systems not noted in ROS Statement are negative. <Yue Soto P - Last Filed: 11/18/18 22:11> ROS Other: All systems not noted in ROS Statement are negative. <Sandra Mandel - Last Filed: 11/19/18 03:33> ROS Statement: Those systems with pertinent positive or pertinent negative responses have been documented in the HPI. 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, right chest wall abscess treated once w/ PICC line + IV abx recently-folowing with Dr Gurrola,memory i mpairment History of Any Multi-Drug Resistant Organisms: MRSA Date of last positivie culture/infection: 04/12/17 MDRO Source:: ASPIRATE Past Surgical History: Section, Hysterectomy, Orthopedic Surgery, Tonsillectomy Past Anesthesia/Blood Transfusion Reactions: No Reported Reaction Past Psychological History: Anxiety, Bipolar, Depression Smoking Status: Current every day smoker Past Alcohol Use History: None Reported Past Drug Use History: None Reported - Past Family History Father Family Medical History: Cancer Additional Family Medical History / Comment(s): Lung Mother Additional Family Medical History / Comment(s): Neurofibromatosis <Sandra Mandel - Last Filed: 11/19/18 03:33> General Exam Limitations: no limitations General appearance: alert, in no apparent distress, other (This is a well- developed, well-nourished adult female patient in no acute distress. Vital signs upon presentation are temperature 98.3F, pulse 73, respirations 18, blood pressure 144/87, pulse ox 97% on room air.) Eye exam: Present: normal appearance, PERRL, EOMI. Absent: scleral icterus, conjunctival injection, periorbital swelling ENT exam: Present: normal exam, normal oropharynx, mucous membranes moist Respiratory exam: Present: normal lung sounds bilaterally. Absent: respiratory distress, wheezes, rales, rhonchi, stridor Cardiovascular Exam: Present: regular rate, normal rhythm, normal heart sounds. Absent: systolic murmur, diastolic murmur, rubs, gallop, clicks GI/Abdominal exam: Present: soft, normal bowel sounds. Absent: distended, tenderness, guarding, rebound, rigid Neurological exam: Present: alert, oriented X3, CN II-XII intact Psychiatric exam: Present: depressed, suicidal ideation. Absent: homicidal ideation Skin exam: Present: warm, dry, intact, normal color. Absent: rash <Sandra Mandel - Last Filed: 11/19/18 03:33> Course Vital Signs 11/18/18 18:01 Temperature 98.3 F Pulse Rate 73 Respiratory 18 Rate Blood Pressure 144/87 O2 Sat by Pulse 97 Oximetry Medical Decision Making <Yue Soto - Last Filed: 11/18/18 22:11> - Lab Data Result diagrams: 11/18/18 23:30 11/18/18 23:30 <Sandra Mandel - Last Filed: 11/19/18 03:33> - Medical Decision Making Personally saw and evaluated the patient. Patient reported she's been feeling very depressed suicidal she cannot stop crying today and states that she needs help. Advised the patient that I will be completing the clinical certification for transfer to psychiatric facility. Patient expressed understanding with this and agreement with the plan. (Yue Soto) - Lab Data Lab Results 11/18/18 11/18/18 11/18/18 Range/Units 18:44 18:44 18:44 WBC (3.8-10.6) k/uL RBC (3.80-5.40) m/uL Hgb (11.4-16.0) gm/dL Hct (34.0-46.0) % MCV (80.0-100.0) fL MCH (25.0-35.0) pg MCHC (31.0-37.0) g/dL RDW (11.5-15.5) % Plt Count (150-450) k/uL Neutrophils % % Lymphocytes % % Monocytes % % Eosinophils % % Basophils % % Neutrophils # (1.3-7.7) k/uL Lymphocytes # (1.0-4.8) k/uL Monocytes # (0-1.0) k/uL Eosinophils # (0-0.7) k/uL Basophils # (0-0.2) k/uL Sodium (137-145) mmol/L Potassium (3.5-5.1) mmol/L Chloride (98-107) mmol/L Carbon Dioxide (22-30) mmol/L Anion Gap mmol/L BUN (7-17) mg/dL Creatinine (0.52-1.04) mg/dL Est GFR (CKD-EPI)AfAm (>60 ml/min/1.73 sqM) Est GFR (CKD-EPI)NonAf (>60 ml/min/1.73 sqM) Glucose (74-99) mg/dL Calcium (8.4-10.2) mg/dL Total Bilirubin (0.2-1.3) mg/dL AST (14-36) U/L ALT (9-52) U/L Alkaline Phosphatase (38-126) U/L Total Protein (6.3-8.2) g/dL Albumin (3.5-5.0) g/dL Urine Color Light Yellow Urine Appearance Clear (Clear) Urine pH 5.5 (5.0-8.0) Ur Specific [place] 1.009 (1.001-1.035) Urine Protein Negative (Negative) Urine Glucose (UA) Negative (Negative) Urine Ketones Negative (Negative) Urine Blood Trace H (Negative) Urine Nitrite Negative (Negative) Urine Bilirubin Negative (Negative) Urine Urobilinogen <2.0 (<2.0) mg/dL Ur Leukocyte Esterase Negative (Negative) Urine RBC <1 (0-5) /hpf Urine WBC <1 (0-5) /hpf Ur Squamous Epith Cells 3 (0-4) /hpf Urine Bacteria Occasional H (None) /hpf Urine Mucus Rare H (None) /hpf Urine HCG, Qual Not Detected (Not Detectd) Urine Opiates Screen Not Detected (NotDetected) Ur Oxycodone Screen Not Detected (NotDetected) Urine Methadone Screen Not Detected (NotDetected) Ur Propoxyphene Screen Not Detected (NotDetected) Ur Barbiturates Screen Not Detected (NotDetected) U Tricyclic Antidepress Not Detected (NotDetected) Ur Phencyclidine Scrn Not Detected (NotDetected) Ur Amphetamines Screen Not Detected (NotDetected) U Methamphetamines Scrn Not Detected (NotDetected) U Benzodiazepines Scrn Not Detected (NotDetected) Urine Cocaine Screen Not Detected (NotDetected) U Marijuana (THC) Screen Not Detected (NotDetected) 11/18/18 11/18/18 Range/Units 23:30 23:30 WBC 6.8 (3.8-10.6) k/uL RBC 4.63 (3.80-5.40) m/uL Hgb 13.2 (11.4-16.0) gm/dL Hct 41.2 (34.0-46.0) % MCV 89.1 (80.0-100.0) fL MCH 28.5 (25.0-35.0) pg MCHC 32.0 (31.0-37.0) g/dL RDW 14.2 (11.5-15.5) % Plt Count 315 (150-450) k/uL Neutrophils % 60 % Lymphocytes % 29 % Monocytes % 6 % Eosinophils % 2 % Basophils % 1 % Neutrophils # 4.1 (1.3-7.7) k/uL Lymphocytes # 2.0 (1.0-4.8) k/uL Monocytes # 0.4 (0-1.0) k/uL Eosinophils # 0.2 (0-0.7) k/uL Basophils # 0.0 (0-0.2) k/uL Sodium 139 (137-145) mmol/L Potassium 3.8 (3.5-5.1) mmol/L Chloride 107 (98-107) mmol/L Carbon Dioxide 24 (22-30) mmol/L Anion Gap 8 mmol/L BUN 17 (7-17) mg/dL Creatinine 0.82 (0.52-1.04) mg/dL Est GFR (CKD-EPI)AfAm >90 (>60 ml/min/1.73 sqM) Est GFR (CKD-EPI)NonAf 86 (>60 ml/min/1.73 sqM) Glucose 117 H (74-99) mg/dL Calcium 9.6 (8.4-10.2) mg/dL Total Bilirubin 0.2 (0.2-1.3) mg/dL AST 17 (14-36) U/L ALT 23 (9-52) U/L Alkaline Phosphatase 71 (38-126) U/L Total Protein 6.7 (6.3-8.2) g/dL Albumin 3.9 (3.5-5.0) g/dL Urine Color Urine Appearance (Clear) Urine pH (5.0-8.0) Ur Specific [place] (1.001-1.035) Urine Protein (Negative) Urine Glucose (UA) (Negative) Urine Ketones (Negative) Urine Blood (Negative) Urine Nitrite (Negative) Urine Bilirubin (Negative) Urine Urobilinogen (<2.0) mg/dL Ur Leukocyte Esterase (Negative) Urine RBC (0-5) /hpf Urine WBC (0-5) /hpf Ur Squamous Epith Cells (0-4) /hpf Urine Bacteria (None) /hpf Urine Mucus (None) /hpf Urine HCG, Qual (Not Detectd) Urine Opiates Screen (NotDetected) Ur Oxycodone Screen (NotDetected) Urine Methadone Screen (NotDetected) Ur Propoxyphene Screen (NotDetected) Ur Barbiturates Screen (NotDetected) U Tricyclic Antidepress (NotDetected) Ur Phencyclidine Scrn (NotDetected) Ur Amphetamines Screen (NotDetected) U Methamphetamines Scrn (NotDetected) U Benzodiazepines Scrn (NotDetected) Urine Cocaine Screen (NotDetected) U Marijuana (THC) Screen (NotDetected) Disposition <Yue Soto P - Last Filed: 11/18/18 22:11> <Sandra Mandel M - Last Filed: 11/19/18 03:33> Clinical Impression: Depression, Suicidal ideation Disposition: TRANSFER TO PSYCH HOSP/UNIT Condition: Serious Referrals: Morgan Srivastava MD [Primary Care Provider] - 1-2 days
[2018-11-18 19:15] LABS: Amphetamine Screen,Urine Not Detected (NotDetected); Barbiturate Screen,Urine Not Detected (NotDetected); Benzodiazepines Screen,Urine Not Detected (NotDetected); Cocaine Screen,Urine Not Detected (NotDetected); Methadone Screen, Urine Not Detected (NotDetected); Opiate Screen,Urine Not Detected (NotDetected); Oxycodone Screen, Urine Not Detected (NotDetected); Phencyclidine Screen,Urine Not Detected (NotDetected); Tricyclic Antidepressant,Urine Not Detected (NotDetected); Urn Cannabinoid Scrn Not Detected (NotDetected)
[2018-11-18] MEDS ORDERED: LORazepam 1 MG TAB PO STA (20:49)
[2018-11-19 00:01] LABS: Basophils % (A) 1 %; Eosinophils # (A) 0.2 k/uL (0-0.7); Eosinophils % (A) 2 %; HCT 41.2 % (34.0-46.0); HGB 13.2 gm/dL (11.4-16.0); Lymphocytes % (A) 29 %; MCH 28.5 pg (25.0-35.0); MCV 89.1 fL (80.0-100.0); Mean Platelet Volume 6.9; Monocytes # (A) 0.4 k/uL (0-1.0); Monocytes % (A) 6 %; Neutrophils # (A) 4.1 k/uL (1.3-7.7); Neutrophils % (A) 60 %; Platelet Count 315 k/uL (150-450); RBC 4.63 m/uL (3.80-5.40); RDW 14.2 % (11.5-15.5); WBC 6.8 k/uL (3.8-10.6)
[2018-11-19 00:12] LABS: ALT 23 U/L (9-52); AST 17 U/L (14-36); African American GFR (CKD) >90 (>60 ml/min/1.73 sqM); Albumin 3.9 g/dL (3.5-5.0); Alkaline Phosphatase 71 U/L (38-126); Anion Gap 8 mmol/L; Blood Urea Nitrogen 17 mg/dL (7-17); Calcium 9.6 mg/dL (8.4-10.2); Carbon Dioxide 24 mmol/L (22-30); Chloride 107 mmol/L (98-107); Glucose 117 mg/dL (74-99); Potassium 3.8 mmol/L (3.5-5.1); Sodium 139 mmol/L (137-145); Total Bilirubin 0.2 mg/dL (0.2-1.3); Total Protein 6.7 g/dL (6.3-8.2)
[2018-11-19 00:39] LABS: Appearance,Urine Clear (Clear); Bacteria,Urine Occasional /hpf; Bilirubin,Urine Negative (Negative); Blood,Urine Trace (Negative); Color,Urine Light Yellow; Glucose,Urine (UA) Negative (Negative); Ketones,Urine Negative (Negative); Leukocyte Esterase,Urine Negative (Negative); Mucus,Urine Rare /hpf; Nitrite,Urine Negative (Negative); PH, Urine 5.5 (5.0-8.0); Protein,Urine Negative (Negative); RBC,Urine <1 /hpf (0-5); Specific Gravity,Urine 1.009 (1.001-1.035); Squamous Epithelial Cell,Urine 3 /hpf (0-4); Urobilinogen,Urine <2.0 mg/dL (<2.0); WBC,Urine <1 /hpf (0-5)
[2018-11-19 06:42] VITALS: BP 132/72; PULSE 80; RESP 18; TEMP 97.6
== END 2018-11-19 09:11 ==
LOC: EC 17:36
DX: F32.9 Major depressive disorder, single episode, unspecified (principal); R45.851 Suicidal ideations; F41.9 Anxiety disorder, unspecified; F17.200 Nicotine dependence, unspecified, uncomplicated; Z86.14 Personal history of Methicillin resistant Staphylococcus aureus infection; Z79.899 Other long term (current) drug therapy; Z88.0 Allergy status to penicillin; Z88.2 Allergy status to sulfonamides; Z88.6 Allergy status to analgesic agent
CPT/HCPCS: 36415; 80053; 80306; 81001; 81025; 82075; 85025; 99285

== ENCOUNTER 2019-05-28 16:00 | Inpatient (IN) | payer MEDICAID, OTHER ==
[2019-05-28 16:47] LABS: Amphetamine Screen,Urine Not Detected (NotDetected); Barbiturate Screen,Urine Not Detected (NotDetected); Benzodiazepines Screen,Urine Not Detected (NotDetected); Cocaine Screen,Urine Not Detected (NotDetected); Methadone Screen, Urine Not Detected (NotDetected); Opiate Screen,Urine Not Detected (NotDetected); Oxycodone Screen, Urine Not Detected (NotDetected); Phencyclidine Screen,Urine Not Detected (NotDetected); Tricyclic Antidepressant,Urine Not Detected (NotDetected); Urn Cannabinoid Scrn Not Detected (NotDetected)
--- NOTE | 2019-05-28 18:32 | ED ---
Psych HPI - General Chief Complaint: Psychiatric Symptoms Stated Complaint: EPS eval Time Seen by Provider: 05/28/19 16:10 Source: patient, RN notes reviewed Mode of arrival: ambulatory Limitations: no limitations - History of Present Illness Initial Comments: This a 48-year-old female presents emergency Department from [facility] office for psychiatric evaluation. Patient states she is severely depressed, suicidal. Patient has had prior attempted overdose with acetaminophen. Patient has not taken any drugs or attempted harm at this time though has a plan. Patient states she has been taking her medications as directed. Patient denies any chest pain, shortness breath, abdominal pain, nausea vomiting diarrhea constipation no fevers or chills. - Related Data Home Medications Medication Instructions Recorded Confirmed Ibuprofen [Motrin] 800 mg PO Q6HR PRN 04/04/17 05/28/19 [place] Carbonate 600 mg PO HS 11/18/18 05/28/19 Lurasidone HCl [Latuda] 60 mg PO HS 05/28/19 05/28/19 fluvoxaMINE [Luvox] 50 mg PO DAILY 05/28/19 05/28/19 Allergies Allergy/AdvReac Type Severity Reaction Status Date / Time Penicillins Allergy Anaphylaxis Verified 05/28/19 18:31 sulfamethoxazole Allergy Rash/Hives Verified 05/28/19 18:31 [From Bactrim] trimethoprim [From Bactrim] Allergy Rash/Hives Verified 05/28/19 18:31 aspirin AdvReac Nausea & Verified 05/28/19 18:31 Vomiting Review of Systems ROS Statement: Those systems with pertinent positive or pertinent negative responses have been documented in the HPI. ROS Other: All systems not noted in ROS Statement are negative. 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, right chest wall abscess treated once w/ PICC line + IV abx recently-folowing with Dr Gurrola,memory impairment History of Any Multi-Drug Resistant Organisms: MRSA Date of last positivie culture/infection: 04/12/17 MDRO Source:: ASPIRATE Past Surgical History: Section, Hysterectomy, Orthopedic Surgery, Tonsillectomy Past Anesthesia/Blood Transfusion Reactions: No Reported Reaction Past Psychological History: Anxiety, Bipolar, Depression Smoking Status: Current every day smoker Past Alcohol Use History: None Reported Past Drug Use History: None Reported - Past Family History Father Family Medical History: Cancer Additional Family Medical History / Comment(s): Lung Mother Additional Family Medical History / Comment(s): Neurofibromatosis General Exam Limitations: no limitations General appearance: alert, in no apparent distress Head exam: Present: atraumatic, normocephalic, normal inspection Eye exam: Present: normal appearance, PERRL, EOMI. Absent: scleral icterus, conjunctival injection, periorbital swelling ENT exam: Present: normal exam, normal oropharynx, mucous membranes moist, TM's normal bilaterally Neck exam: Present: normal inspection, full ROM. Absent: tenderness, meningismus, lymphadenopathy Respiratory exam: Present: normal lung sounds bilaterally. Absent: respiratory distress, wheezes, rales, rhonchi, stridor Cardiovascular Exam: Present: regular rate, normal rhythm, normal heart sounds. Absent: systolic murmur, diastolic murmur, rubs, gallop, clicks GI/Abdominal exam: Present: soft, normal bowel sounds. Absent: distended, tenderness, guarding, rebound, rigid Neurological exam: Present: alert, oriented X3, CN II-XII intact Psychiatric exam: Present: depressed, flat affect Skin exam: Present: warm, dry, intact, normal color. Absent: rash Course Vital Signs 05/28/19 16:05 Temperature 98 F Pulse Rate 91 Respiratory 16 Rate Blood Pressure 150/73 O2 Sat by Pulse 99 Oximetry Medical Decision Making - Medical Decision Making Patient was evaluated by EPS, case discussed with psychiatrist who recommends inpatient treatment. Patient will be admitted at this time. - Lab Data Lab Results 05/28/19 Range/Units 16:20 Urine Opiates Screen Not Detected (NotDetected) Ur Oxycodone Screen Not Detected (NotDetected) Urine Methadone Screen Not Detected (NotDetected) Ur Propoxyphene Screen Not Detected (NotDetected) Ur Barbiturates Screen Not Detected (NotDetected) U Tricyclic Antidepress Not Detected (NotDetected) Ur Phencyclidine Scrn Not Detected (NotDetected) Ur Amphetamines Screen Not Detected (NotDetected) U Methamphetamines Scrn Not Detected (NotDetected) U Benzodiazepines Scrn Not Detected (NotDetected) Urine Cocaine Screen Not Detected (NotDetected) U Marijuana (THC) Screen Not Detected (NotDetected) Disposition Clinical Impression: Depression, Suicidal ideation Disposition: TRANSFER TO PSYCH HOSP/UNIT Referrals: Morgan Srivastava MD [Primary Care Provider] - 1-2 days
[2019-05-28] MEDS ORDERED: MAGNESIUM HYDROXIDE 2,400 MG/10 ML CUP PO PRN (19:10)
[2019-05-28] MEDS ORDERED: MAG HYDROX/AL HYDROX/SIMETH 30 ML CUP PO PRN (19:10)
[2019-05-28] MEDS ORDERED: ZIPRASIDONE 20 MG VIAL IM PRN (19:10)
[2019-05-28] MEDS ORDERED: ACETAMINOPHEN TAB 325 MG TAB PO PRN (19:10)
[2019-05-28] MEDS ORDERED: IBUPROFEN 800 MG TAB PO PRN (19:15)
[2019-05-28] MEDS ORDERED: LURASIDONE 20 MG TAB PO SCH (21:00)
[2019-05-28] MEDS: NICOTINE 14MG/24HR PATCH TRANSDERM SCH (22:12)
[2019-05-28] MEDS: LITHIUM CARBONATE 300 MG CAP PO SCH (22:12)
[2019-05-29] MEDS: NICOTINE 14MG/24HR PATCH TRANSDERM SCH (09:31)
[2019-05-29 10:02] LABS: ALT 19 U/L (4-34); AST 23 U/L (14-36); African American GFR (CKD) 87 (>60 ml/min/1.73 sqM); Albumin 4.2 g/dL (3.5-5.0); Alkaline Phosphatase 82 U/L (38-126); Anion Gap 5 mmol/L; Bilirubin, Delta 0.3 mg/dL (0.0-0.2); Bilirubin,Unconjugated 0.1 mg/dL (0.0-1.1); Blood Urea Nitrogen 11 mg/dL (7-17); Calcium 10.2 mg/dL (8.4-10.2); Carbon Dioxide 28 mmol/L (22-30); Chloride 108 mmol/L (98-107); Cholesterol 260 mg/dL (<200); Glucose 138 mg/dL (74-99); HDL Cholesterol 54 mg/dL (40-60); LDL Cholesterol,Calculated 168 mg/dL (0-99); Lithium <0.2 mmol/L; Non-African American GFR(CKD) 75 (>60 ml/min/1.73 sqM); Potassium 5.3 mmol/L (3.5-5.1); Sodium 141 mmol/L (137-145); Total Bilirubin 0.4 mg/dL (0.2-1.3); Total Protein 7.3 g/dL (6.3-8.2); Triglycerides 189 mg/dL (<150)
[2019-05-29 10:22] LABS: Basophils # (A) 0.1 k/uL (0-0.2); Basophils % (A) 2 %; Eosinophils # (A) 0.1 k/uL (0-0.7); Eosinophils % (A) 2 %; HGB 13.6 gm/dL (11.4-16.0); Lymphocytes # (A) 1.4 k/uL (1.0-4.8); Lymphocytes % (A) 19 %; MCH 29.4 pg (25.0-35.0); MCHC 31.6 g/dL (31.0-37.0); MCV 93.1 fL (80.0-100.0); Mean Platelet Volume 7.6; Monocytes # (A) 0.4 k/uL (0-1.0); Monocytes % (A) 6 %; Neutrophils # (A) 5.3 k/uL (1.3-7.7); Neutrophils % (A) 71 %; Platelet Count 328 k/uL (150-450); RBC 4.61 m/uL (3.80-5.40); RDW 13.3 % (11.5-15.5); WBC 7.4 k/uL (3.8-10.6)
--- NOTE | 2019-05-29 12:16 | P.HP ---
Psychiatric H&P - . H&P Date: 05/29/19 History & Physical: Allergies Allergy/AdvReac Type Severity Reaction Status Date / Time Penicillins Allergy Anaphylaxis Verified 05/28/19 18:31 sulfamethoxazole Allergy Rash/Hives Verified 05/28/19 18:31 From Bactrim trimethoprim From Bactrim Allergy Rash/Hives Verified 05/28/19 18:31 aspirin AdvReac Nausea & Verified 05/28/19 18:31 Vomiting Vital Signs Temp 98.9 F 05/29/19 06:50 Pulse 69 05/29/19 06:50 Resp 16 05/29/19 06:50 BP 113/56 05/29/19 06:50 Pulse Ox 96 05/29/19 06:50 Intake & Output 05/28/19 05/29/19 05/29/19 18:59 06:59 18:59 Weight 79.379 kg 79.379 kg Laboratory Last Values WBC 7.4 k/uL (3.8-10.6) 05/29/19 09:05 RBC 4.61 m/uL (3.80-5.40) 05/29/19 09:05 Hgb 13.6 gm/dL (11.4-16.0) 05/29/19 09:05 Hct 43.0 % (34.0-46.0) 05/29/19 09:05 MCV 93.1 fL (80.0-100.0) 05/29/19 09:05 MCH 29.4 pg (25.0-35.0) 05/29/19 09:05 MCHC 31.6 g/dL (31.0-37.0) 05/29/19 09:05 RDW 13.3 % (11.5-15.5) 05/29/19 09:05 Plt Count 328 k/uL (150-450) 05/29/19 09:05 Neutrophils % 71 % 05/29/19 09:05 Lymphocytes % 19 % 05/29/19 09:05 Monocytes % 6 % 05/29/19 09:05 Eosinophils % 2 % 05/29/19 09:05 Basophils % 2 % 05/29/19 09:05 Neutrophils # 5.3 k/uL (1.3-7.7) 05/29/19 09:05 Lymphocytes # 1.4 k/uL (1.0-4.8) 05/29/19 09:05 Monocytes # 0.4 k/uL (0-1.0) 05/29/19 09:05 Eosinophils # 0.1 k/uL (0-0.7) 05/29/19 09:05 Basophils # 0.1 k/uL (0-0.2) 05/29/19 09:05 Sodium 141 mmol/L (137-145) 05/29/19 09:05 Potassium 5.3 mmol/L (3.5-5.1) H 05/29/19 09:05 Chloride 108 mmol/L (98-107) H 05/29/19 09:05 Carbon Dioxide 28 mmol/L (22-30) 05/29/19 09:05 Anion Gap 5 mmol/L 05/29/19 09:05 BUN 11 mg/dL (7-17) 05/29/19 09:05 Creatinine 0.91 mg/dL (0.52-1.04) 05/29/19 09:05 Est GFR (CKD-EPI)AfAm 87 (>60 ml/min/1.73 sqM) 05/29/19 09:05 Est GFR (CKD-EPI)NonAf 75 (>60 ml/min/1.73 sqM) 05/29/19 09:05 Glucose 138 mg/dL (74-99) H 05/29/19 09:05 Calcium 10.2 mg/dL (8.4-10.2) 05/29/19 09:05 Total Bilirubin 0.4 mg/dL (0.2-1.3) 05/29/19 09:05 Conjugated Bilirubin 0.0 mg/dL (0.0-0.3) 05/29/19 09:05 Unconjugated Bilirubin 0.1 mg/dL (0.0-1.1) 05/29/19 09:05 Delta Bilirubin 0.3 mg/dL (0.0-0.2) H 05/29/19 09:05 AST 23 U/L (14-36) 05/29/19 09:05 ALT 19 U/L (4-34) 05/29/19 09:05 Alkaline Phosphatase 82 U/L (38-126) 05/29/19 09:05 Total Protein 7.3 g/dL (6.3-8.2) 05/29/19 09:05 Albumin 4.2 g/dL (3.5-5.0) 05/29/19 09:05 Triglycerides 189 mg/dL (<150) H 05/29/19 09:05 Cholesterol 260 mg/dL (<200) H 05/29/19 09:05 LDL Cholesterol, Calc 168 mg/dL (0-99) H 05/29/19 09:05 HDL Cholesterol 54 mg/dL (40-60) 05/29/19 09:05 TSH 0.708 mIU/L (0.465-4.680) 05/29/19 09:05 Urine Opiates Screen Not Detected (NotDetected) 05/28/19 16:20 Ur Oxycodone Screen Not Detected (NotDetected) 05/28/19 16:20 Urine Methadone Screen Not Detected (NotDetected) 05/28/19 16:20 Ur Propoxyphene Screen Not Detected (NotDetected) 05/28/19 16:20 Ur Barbiturates Screen Not Detected (NotDetected) 05/28/19 16:20 U Tricyclic Antidepress Not Detected (NotDetected) 05/28/19 16:20 Ur Phencyclidine Scrn Not Detected (NotDetected) 05/28/19 16:20 Ur Amphetamines Screen Not Detected (NotDetected) 05/28/19 16:20 U Methamphetamines Scrn Not Detected (NotDetected) 05/28/19 16:20 U Benzodiazepines Scrn Not Detected (NotDetected) 05/28/19 16:20 [place] <0.2 mmol/L 05/29/19 09:05 Urine Cocaine Screen Not Detected (NotDetected) 05/28/19 16:20 U Marijuana (THC) Screen Not Detected (NotDetected) 05/28/19 16:20 05/29/19 12:05 IDENTIFYING DATA: Patient is a 48-year-old female who currently works at an [employer] home and is living alone in a new apartment is single and has 3 kids. HPI: Patient presented to the hospital yesterday with the complaint of increasing depression and suicidal ideations for one week. Patient had a plan to overdose on medications. She states that she came into the hospital with her mother for treatment. Patient has a history of overdose on Tylenol 2 years ago. Patient had a lithium level which was below 0.2 and also UDS which was negative on admission. Patient states that she has started a new job in the past couple months working at the [employer] home and states that it's been stressful and also spoke about recently moving into a new apartment and being able to have her own independence as she moved out of her mother's place. Patient states that she has been going to [facility] and following up with Dr. abreu who recently changed her medications approximately 2 weeks ago. She states that her maturity dose was decreased and fluvoxamine was added and she states that she has been feeling depressed ever since. She admits to some anxiety. She claims to also have racing thoughts and trouble sleeping at night. She claims to have manic-type symptoms in the past where she is at increased energy and poor sleep. She claims that she has been compliant with her medications however has gotten confused with them. Patient denies any suicidal or homicidal ideations intent or plan. At this time patient denies any auditory or visual hallucinations. Patient admits to using cigarettes daily however denies any other drugs or alcohol use. PAST PSYCHIATRIC HISTORY: Patient states that she has a history of bipolar disorder and is previously on lithium, Luvox, and Latuda. She is also following up at [facility] with Dr. Abreu and was recently seen in approximately 2 weeks ago. She claims that she has been admitted to a psychiatric hospital 2-3 times in the past. Her most recent admission was after a Tylenol overdose in 2017 where she went to a [facility]. PMH: COPD, GERD, chronic pain in her shoulder from a previous MRSA infection. ALLERGIES: as per EMR CHEMICAL DEPENDENCY HISTORY: as per HPI FAMILY PSYCHIATRIC/SUBSTANCE USE HISTORY: denies SOCIAL HISTORY: She states that she is born and raised in [facility]. She claims that she is single at this time and lives alone in a new apartment. She has 3 kids and currently works a new job at an [employer] home. She states that she has a ninth grade education. MENTAL STATUS EXAM: General Appearance: Patient appears to be stated age is alert, somewhat directable and attempts to cooperate. Patient has marginal hygiene and grooming and is wearing hospital gown. Behavior: Patient is calmly seated without any agitated behavior. Times to cooperate. Speech: Patient's speech is fluent and nonpressured. Mood/Affect: Patient reports their mood is depressed and anxious, affect is congruent and constricted. Suicidality/Homicidality: Patient denies having any suicidal or homicidal ideation intent or plan. Perceptions: Patient denies any auditory or visual hallucinations. Though content/process: There is no evidence of any delusional thought content and thought process is linear and goal-directed. Patient is focused on discharge. Memory and concentration: AOX3, grossly intact for the purposes of this session. Can spell "WORLD" backwards Judgment and insight: poor STRENGTHS/WEAKNESSES: strength is that patient is resilient, weaknesses that patient has poor insight INTELLECT: average IMPRESSIONS: Bipolar disorder, currently depressed. Nicotine dependence PLAN: -Patient is admitted under voluntary status to [facility] for stabilization of psychiatric symptoms and safety. Patient signed adult voluntary form and medi cation consent and is placed in patient's chart. -Medications : Will re-start patient on Latuda 60 mg with dinner daily for mood stabilization/depression. We'll also increase patient's home dose of lithium to 600 mg daily at bedtime +300 mg every morning. We will need to get a repeat lithium dose early next week. Melatonin 5 mg daily at bedtime for sleep -Ativan and Geodon PRN for agitation/aggression -Patient was informed of the risks, benefits and side effects of the medication and patient verbally consented to taking the medications. Patient signed med consent form and was placed in chart. -NRT - nicotine patch -SW on board for discharge planning. Encourage patient to participate in groups to work on coping skills. 05/29/19 12:14
[2019-05-29] MEDS: LITHIUM CARBONATE 300 MG CAP PO SCH ×2 (13:01→21:25)
[2019-05-29] MEDS: LURASIDONE 20 MG TAB PO SCH (18:27)
[2019-05-29 18:28] LABS: Hemoglobin A1C 5.8 % (4.0-6.0)
[2019-05-29] MEDS ORDERED: MELATONIN 5 MG TABLET PO SCH (21:00)
--- NOTE | 2019-05-29 22:55 | CONS ---
CONSULTATION CHIEF COMPLAINT: Major depression with bipolar 2. HISTORY OF PRESENT ILLNESS: This is another psych admission for this 48-year-old female who has a long history of psychiatric problems with major depression. 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 She apparently became progressively more depressed and suicidal and came to the emergency room. REVIEW OF SYSTEMS: She denies any headaches, neurologic problems, change in the vision or the hearing, chest pain, cough, hemoptysis, shortness of breath, pain over the right sternocleidomastoid joint, hypertension, angina, infarctions, orthopnea, PND, abdominal pain, nausea, vomiting, hematemesis, melena, hematochezia, jaundice, hepatitis, cirrhosis, renal failure, hematuria, frequency, urgency, incontinence, nocturia. She does have problems with osteoarthritis affecting various joints. She is not diabetic. Past medical history, family history, and personal and social histories are otherwise unremarkable and noncontributory. ALLERGIES: SULFA, PENICILLIN AND ASPIRIN. She has not been seen in the office since last fall. At that time she was on Invega IM, Lipitor 40, gabapentin 400 three times a day, Trintellix 20 mg once a day, lithium 300 mg two at night, ibuprofen 800 q.i.d. p.r.n., chlorthalidone 25 once a day, and vitamin D. The remainder of her history is unremarkable except that she is a smoker. PHYSICAL EXAMINATION: Blood pressure 112/58, pulse 64, respirations 12, and she is afebrile. In general she appeared to be slightly overweight and in no acute distress. Skin color was normal. Skin was warm and dry. Lymph nodes were not enlarged. Head, ears, eyes, nose, mouth and throat were normal. Neck veins were not distended. Thyroid was not enlarged. Chest was clear. Cardiac exam was normal. There was no swelling or redness over the right sternocleidomastoid joint area. Abdomen was soft and nontender without visceromegaly or masses. Bowel sounds were present. Extremities were normal. Neurologically she was intact. ADMITTING DIAGNOSES: She is admitted to the hospital with the diagnoses: 1. Major depression and depressive episode. 2. Bipolar 2 depression. 3. Chronic obstructive pulmonary disease. RECOMMENDATIONS: None at this time. MMODL / IJN: [id number] /
[2019-05-30] MEDS: LORazepam 1 MG TAB PO PRN (02:34)
[2019-05-30] MEDS: LITHIUM CARBONATE 300 MG CAP PO SCH ×2 (09:03→20:47)
[2019-05-30] MEDS: NICOTINE 14MG/24HR PATCH TRANSDERM SCH (09:04)
--- NOTE | 2019-05-30 11:44 | P.PN ---
Progress Note - Text Progress Note Date: 05/30/19 Interval History: Patient was seen wandering the hallways after taking part in group and was dir ectable and agreeable to speak to read in the office. Patient appears to be somewhat anxious during the interview however claims that her mood has been mildly improving. She states that she does not feel suicidal at this time as she is back on her medications. Patient was appropriate and cooperative with comic writer and did not appear irritable today. She states that she continues to have racing thoughts at night and had poor sleep last night. She claims that she would like to have her nighttime medications increased. She states that she has been trying to go to groups and try to focus as best that she can on improving her coping skills. Patient states that she is worried about her apartment and her new job and would really like to be discharged early next week. Patient states that she is feeling improvement in her energy during the day and has fair appetite. At this time patient denies any suicidal or homical ideations, intent or plan. Patient denies any auditory, visual hallucinations and denies any paranoia or delusions. Patient denies any side effects from the medications and has been compliant with meds. Mental Status Exam: General Appearance: Patient appears to be stated age is alert, somewhat directable and attempts to cooperate. Patient has marginal hygiene and grooming and is wearing hospital gown. Behavior: Patient is calmly seated without any agitated behavior. Attempts to cooperate. Appears anxious. Speech: Patient's speech is fluent and nonpressured. Mood/Affect: Patient reports their mood is mildly improving and is anxious, affect is congruent Suicidality/Homicidality: Patient denies having any suicidal or homicidal ideation intent or plan. Perceptions: Patient denies any auditory or visual hallucinations. Though content/process: There is no evidence of any delusional thought content and thought process is linear and goal-directed. Patient is focused on discharge. Memory and concentration: AOX3, grossly intact for the purposes of this session Judgment and insight: poor, improving mildly. Assessment Bipolar disorder, currently depressed. Nicotine dependence Plan: -Patient continues to meet criteria for inpatient psychiatric admission for symptom stabilization and safety. Patient has signed adult voluntary form and medication consent and was placed in patient's chart. -Medications: We'll continue with Latuda 60 mg with dinner daily for mood stabilization/depression. We will continue with lithium 300 mg every morning +600 mg nightly for mood stabilization/suicidality. Will draw lithium level Sunday morning. Increase melatonin to 10 mg nightly for sleep. added on Vistaril 25 mg every morning plus 50 mg daily at bedtime for anxiety, this can be increased over the weekend if needed for anxiety. -When necessary Ativan and Geodon for agitation/aggression. -NRT - nicotine patch -SW on board for discharge planning. Encouraged patient to participate in groups to work on coping skills. Patient likely discharged early next week Sunday- Sunday.
[2019-05-30] MEDS: hydrOXYzine PAMOATE 25 MG CAP PO SCH ×2 (12:23→20:46)
[2019-05-30] MEDS: LURASIDONE 20 MG TAB PO SCH (17:49)
[2019-05-30] MEDS ORDERED: MELATONIN 5 MG TABLET PO SCH (21:00)
[2019-05-31] MEDS: hydrOXYzine PAMOATE 25 MG CAP PO SCH ×2 (09:33→20:42)
[2019-05-31] MEDS: NICOTINE 14MG/24HR PATCH TRANSDERM SCH (09:33)
[2019-05-31] MEDS: LITHIUM CARBONATE 300 MG CAP PO SCH ×2 (09:33→20:41)
--- NOTE | 2019-05-31 16:52 | P.PN ---
Progress Note - Text Progress Note Date: 05/31/19 Subjective: Patient was seen today as a cross coverage for Dr. Otto. The patient was evaluated, chart reviewed, case discussed with the treatment team. Patient reported interrupted sleep last night. Appetite was reported as "better ". Patient has been going to some groups and other unit activities. The patient is compliant with her medications and denies any adverse reactions. Patient reports feeling some improvement with less depressed mood but she still had very high and anxiety and at times fearful. She reports feeling frustrated about being hospitalized and hoping to go home soon. She denies feeling suicidal and he denies any homicidal ideation. She denies any auditory or visual hallucinations, paranoid ideation, and no delusions could be elicited. She denies any manic symptoms including sustained period of time with elevated or irritable mood, impulsive or irrational behavior, inflated self-esteem, or absence need to sleep due to increases goal-directed activities. Review of other systems: Patient denies any physical symptoms besides what has been mentioned above. No breathing problems, no chest pain reported today. Objective: Vitals has been reviewed. Mental status examination; Appearance: The patient appears stated age, adequately groomed and dressed, no specific features. Gait/posture: Normal gait, Normal arm swinging: No abnormal movements. Attitude and behavior: engaged, cooperative, eye contact. Motor activity: Normal psychomotor activity Speech: Normal rate, tone. Mood: Anxious, frustrated Affect: Constricted Thought form: goal-directed, linear, coherent. Thought content: Non-delusional, denies suicidal thoughts, denies homicidal thoughts, denies intentions or plans. Perception: Denies any auditory or visual hallucinations Attention: No impairment. Orientation: Patient patient was fully oriented to time place person and situation. Insight: Patient has fair insight about her psychiatric disorder. Judgment: Patient has fair judgment about her psychiatric treatment. Assessment: Bipolar disorder, depressive episode Plan: Continue inpatient level of care due to need for further stabilization on medications Precautions: Continue 15 minutes check for safety. Consider medical consultation if any acute medical issues arise. Provide the patient individual, group therapy, substance use disorder counseling to give better insight and learn coping skills. Medications: Continue Latuda for mood stabilization and psychotic symptoms and she is currently on 60 mg in her. Continue lithium 300 mg a.m. and 600 mg at bedtime for mood stabilization. Continue melatonin and increase the dose to 15 mg to help with sleep inter ruption. Discharge patient to OUTPATIENT services upon a stabilization
[2019-05-31] MEDS: LURASIDONE 20 MG TAB PO SCH (17:46)
[2019-05-31] MEDS: MELATONIN 5 MG TABLET PO SCH (20:41)
[2019-06-01] MEDS: LITHIUM CARBONATE 300 MG CAP PO SCH ×3 (08:37→20:57)
[2019-06-01] MEDS: NICOTINE 14MG/24HR PATCH TRANSDERM SCH (08:37)
[2019-06-01] MEDS: hydrOXYzine PAMOATE 25 MG CAP PO SCH ×2 (08:38→20:57)
[2019-06-01] MEDS ORDERED: hydrOXYzine PAMOATE 25 MG CAP PO PRN (13:13)
--- NOTE | 2019-06-01 13:13 | P.PN ---
Progress Note - Text Progress Note Date: 06/01/19 Subjective: Patient was seen today as a cross coverage for Dr. Otto. The patient was evaluated, chart reviewed, case discussed with the treatment team. Patient reports feeling her depression is better today but her anxiety still very high. Patient denies feeling hopeless and denies suicidal or homicidal ideation. She denies any hallucinations. Reports continued to have poor sleep and slept only 4 hours last night. She reports better appetite today. Patient has been going to some groups and other unit activities. She has been taking her psychiatric medications and denies side effects. Patient denies manic symptoms including euphoric mood, lack need to sleep due to unusual increase in activities, or aggression/uninhibited behavior. Review of other systems: Patient denies any physical symptoms besides what has been mentioned above. No breathing problems, no chest pain reported today. Objective: Vitals has been reviewed. Mental status examination; Appearance: The patient appears stated age, adequately groomed and dressed, no specific features. Gait/posture: Normal gait, Normal arm swinging: No abnormal movements. Attitude and behavior: engaged, cooperative, eye contact. Motor activity: Normal psychomotor activity Speech: Normal rate, tone. Mood: Anxious Affect: Constricted Thought form: goal-directed, linear, coherent. Thought content: Non-delusional, denies suicidal thoughts, denies homicidal thoughts, denies intentions or plans. Perception: Denies any auditory or visual hallucinations Attention: No impairment. Orientation: Patient patient was fully oriented to time place person and situation. Insight: Patient has fair insight about her psychiatric disorder. Judgment: Patient has fair judgment about her psychiatric treatment. Assessment: Bipolar disorder, depressive episode Plan: Continue inpatient level of care due to need for further stabilization on medications Precautions: Continue 15 minutes check for safety. Consider medical consultation if any acute medical issues arise. Provide the patient individual, group therapy, substance use disorder counseling to give better insight and learn coping skills. Medications: Continue Latuda for mood stabilization and psychotic symptoms and she is currently on 60 mg in her. Continue lithium 300 mg a.m. and 600 mg at bedtime for mood stabilization. Continue melatonin 15 mg to help with sleep interruption. Start Vistaril when necessary for anxiety. Start Benadryl when necessary for insomnia. Discharge patient to OUTPATIENT services upon a stabilization
[2019-06-01] MEDS ORDERED: diphenhydrAMINE 25 MG CAP PO PRN (13:14)
[2019-06-01] MEDS: LORazepam 1 MG TAB PO PRN (13:30)
[2019-06-01 13:32] VITALS: PULSE 71
[2019-06-01] MEDS: LURASIDONE 20 MG TAB PO SCH (18:08)
[2019-06-01] MEDS: MELATONIN 5 MG TABLET PO SCH (20:57)
[2019-06-02 06:49] VITALS: BP 113/71; RESP 16; TEMP 98.2
[2019-06-02] MEDS: LITHIUM CARBONATE 300 MG CAP PO SCH (08:35)
[2019-06-02] MEDS: NICOTINE 14MG/24HR PATCH TRANSDERM SCH (08:35)
[2019-06-02] MEDS: LORazepam 1 MG TAB PO PRN (08:37)
--- NOTE | 2019-06-02 11:40 | P.DS ---
Providers Date of admission: 05/28/19 18:48 Expected date of discharge: 06/02/19 Attending physician: Stevie Otto MD Consults: 05/28/19 19:10 Consult Physician Routine Consulting Provider: Morgan Srivastava Consult Reason/Comments: H & P and medical care Do you want consulting provider notified?: Yes Primary care physician: Morgan Srivastava - Discharge Diagnosis(es) (1) Bipolar disorder current episode depressed Current Visit: Yes Status: Acute Priority: High (2) Nicotine dependence Current Visit: Yes Status: Acute Priority: Low (3) Anxiety disorder, unspecified Current Visit: Yes Status: Acute Priority: Medium Hospital Course: Admission HPI: Patient is a 48-year-old female who currently works at an [employer] home and is living alone in a new apartment is single and has 3 kids. Patient presented to the hospital yesterday with the complaint of increasing depression and suicidal ideations for one week. Patient had a plan to overdose on medications. She states that she came into the hospital with her mother for treatment. Patient has a history of overdose on Tylenol 2 years ago. Patient had a lithium level which was below 0.2 and also UDS which was negative on admission. Patient states that she has started a new job in the past couple months working at the [employer] home and states that it's been stressful and also spoke about recently moving into a new apartment and being able to have her own independence as she moved out of her mother's place. Patient states that she has been going to [facility] and following up with Dr. prabhakar who recently changed her medications approximately 2 weeks ago. She states that her maturity dose was decreased and fluvoxamine was added and she states that she has been feeling depressed ever since. She admits to some anxiety. She claims to also have racing thoughts and trouble sleeping at night. She claims to have manic-type symptoms in the past where she is at increased energy and poor sleep. She claims that she has been compliant with her medications however has gotten confused with them. Patient denies any suicidal or homicidal ideations intent or plan. At this time patient denies any auditory or visual hallucinations. Patient admits to using cigarettes daily however denies any other drugs or alcohol use. Hospital course: Upon admission to the unit patient was initially depressed and suicidal. Patient was however directable and agreeable to commence treatment. Patient got along well with other patients on the unit and followed unit protocol. Patient was compliant with the medications and denied any side effects throughout hospital course. Patient was re-started on Latuda 60mg with dinner daily for mood stabilization/depression, restarted and increased dose of lithium to 600 mg daily at bedtime +300 mg every morning for mood stabilization/suicidality. Patient was also started on melatonin and titrated up to a dose of 15 mg daily at bedtime for sleep and also started on Vistaril and titrated up to a dose of 50 mg twice a day when necessary for anxiety. Patient spoke of her stressors and engaged in therapy both group and individual. Patient was also seen by medical team for history and physical exam. Patient had lithium level drawn on morning prior to discharge and was 0.8. Throughout the course of the hospitalization patient gradually improved with regards to mood, anxiety, racing thoughts, sleep and became future oriented with improved insight and judgment. On the day of discharge patient denied any suicidal or homicidal ideations intent or plan denied any auditory or visual hallucinations. Patient endorsed wanting to live for her job and her family/kids. The patient denied any access to guns or weapons. Patient denied any paranoia and did not endorse any delusions. Patient does not have a significant history of substance abuse however was counseled on abstaining from all substances including alcohol and marijuana. Patient was also counseled on the medications and need for regular compliance and was encouraged to follow-up with their outpatient appointment for mental health and also for primary care. Prior to discharge a family meeting will be arranged by administrator social welfare to answer any questions and ensure safety upon discharge. Mental status exam: General Appearance: Patient appears to be stated age is alert, pleasant, and cooperative. Patient is in no acute distress and has improved hygiene and grooming Behavior: Patient is calmly seated without any agitated behavior. Speech: Patient's speech is fluent and nonpressured. Mood/Affect: Patient reports their mood is "much better", affect is congruent and euthymic. Suicidality/Homicidality: Patient denies having any suicidal or homicidal ideation intent or plan. Perceptions: Patient denies any auditory or visual hallucinations. Though content/process: There is no evidence of any delusional thought content and thought process is linear and goal-directed. Focused on discharge and more future oriented. Memory and concentration: AOX3, grossly intact for the purposes of this session. Can spell "WORLD" backwards correctly. Judgment and insight: improved with guarded prognosis. Impression: Bipolar disorder, currently depressed Anxiety disorder unspecified Nicotine dependence Plan: -Continue with discharge today as patient has improved and stabilized psychiatrically and is not currently an imminent threat to herself and/or others. -Continue medications: Latuda 60 mg with dinner daily for mood stabilization/depression, lithium 450 mg twice a day for mood stabilization/suicidality. Melatonin 15 mg daily at bedtime for sleep, Vistaril 50 mg twice a day when necessary for anxiety. -Patient was counseled on the need for medication compliance and appropriate follow-up at mental health and also primary care for medical issues. Patient verbalized understanding and agreed. -Social work to arrange for and conduct family meeting to ensure safety upon discharge and answer any questions/concerns. Social work also to arrange for patients follow up appointments with [facility] for psychiatric care along with follow up with primary care provider. -Patient counseled on abstaining from recreational drugs and marijuana and alcohol. Was informed/educated on the adverse effects on their physical and mental health. Patient verbally agreed and understood. -Patient was instructed to return to the hospital or seek immediate medical care if their psychiatric or medical symptoms do worsen or reoccur. Patient Condition at Discharge: Stable Plan - Discharge Summary Discharge Rx Participant: No New Discharge Prescriptions: New Nicotine 14Mg/24Hr Patch [Habitrol] 1 patch TRANSDERM DAILY 14 Days patch [place] Carbonate [[place] Carbonate ER] 450 mg PO BID 28 Days tablet.er Melatonin 15 mg PO HS 28 Days tablet hydrOXYzine PAMOATE [Vistaril] 50 mg PO BID PRN 28 Days cap PRN Reason: Anxiety Continue Lurasidone HCl [Latuda] 60 mg PO HS 28 Days tab Discontinued Ibuprofen [Motrin] 800 mg PO Q6HR PRN PRN Reason: Pain [place] Carbonate 600 mg PO HS fluvoxaMINE [Luvox] 50 mg PO DAILY Discharge Medication List [place] Carbonate [[place] Carbonate ER] 450 mg PO BID 28 Days tablet.er 06/02/19 [Rx] Lurasidone HCl [Latuda] 60 mg PO HS 28 Days tab 06/02/19 [Rx] Melatonin 15 mg PO HS 28 Days tablet 06/02/19 [Rx] Nicotine 14Mg/24Hr Patch [Habitrol] 1 patch TRANSDERM DAILY 14 Days patch 06/02/19 [Rx] hydrOXYzine PAMOATE [Vistaril] 50 mg PO BID PRN 28 Days cap 06/02/19 [Rx] Follow up Appointment(s)/Referral(s): Morgan Srivastava MD [Primary Care Provider] - 1-2 days Patient Instructions/Handouts: How to Stop Smoking (DC), Depression (DC) Activity/Diet/Wound Care/Special Instructions: Activity and diet as tolerated. Avoid the use of street drugs and alcohol. Take all medications as prescribed. When you are in need of refills on your medications please contact your medical provider and/or outpatient psychiatrist to have this done. Please go to scheduled outpatient appointment for aftercare treatment. If symptoms return or become worse, call the crisis line at and/or go to the nearest emergency room for evaluation. Discharge Disposition: HOME SELF-CARE
== END 2019-06-02 14:20 | disposition home or self-care (01) | DRG 885 ==
LOC: EC 16:00 → 3MHU 18:48
PROVIDERS: ADMIT Psychiatry & Neurology Psychiatry; ATTEND Psychiatry & Neurology Psychiatry
DX: F31.30 Bipolar disorder, current episode depressed, mild or moderate severity, unspecified (principal); R45.851 Suicidal ideations; F17.210 Nicotine dependence, cigarettes, uncomplicated; F41.9 Anxiety disorder, unspecified; J44.9 Chronic obstructive pulmonary disease, unspecified; G47.00 Insomnia, unspecified; Z86.14 Personal history of Methicillin resistant Staphylococcus aureus infection; Z90.710 Acquired absence of both cervix and uterus
CPT/HCPCS: 80053; 80061; 80178; 80306; 82075; 82248; 83036; 84132; 84443; 85025; 99284

== ENCOUNTER → 2019-07-07 | Outpatient (CLI) | payer OTHER ==
[2019-07-07 16:19] LABS: T4, Free (Free Thyroxine) 1.3 ng/dL (0.80-1.80)
[2019-07-07 16:50] LABS: African American GFR (CKD) 101.8 (60.0-200.0); Chol/HDL Ratio 5.09; LDL Cholesterol,Calculated 173.2 mg/dL (0.0-131.0); Lithium 0.2 mmol/L (0.5-1.2); Non-African American GFR(CKD) 87.8 (60.0-200.0); VLDL Calculation 43.8 mg/dL (5.00-40.00)
[2019-07-07 17:54] LABS: Hemoglobin A1C 5.9 % (4.0-6.0)
== END | disposition home or self-care (01) ==
LOC: LABWHC1 07:50
PROVIDERS: ATTEND Psychiatry & Neurology Psychiatry
DX: Z51.81 Encounter for therapeutic drug level monitoring (principal); Z79.899 Other long term (current) drug therapy
CPT/HCPCS: 36415; 80061; 80178; 82565; 82947; 83036; 84439; 84443; 84520

== ENCOUNTER 2019-09-09 23:22 | Emergency (ER) | payer OTHER ==
[2019-09-09 23:28] VITALS: RESP 16; TEMP 97.5
[2019-09-09] MEDS ORDERED: diphenhydrAMINE 50 MG CAP PO STA (23:40)
--- NOTE | 2019-09-09 23:44 | ED ---
General Adult HPI - General Chief complaint: Allergic Reaction Stated complaint: Throat swelling Time Seen by Provider: 09/09/19 23:32 Source: patient Limitations: no limitations - History of Present Illness Initial comments: This patient is a 49-year-old woman who presents with complaint that she believes she is having a medication reaction. The patient states that her physician had started her on vraylar, and she took the first dose tonight, approximately one hour later she noticed that the left side of her neck was feeling tight. She states that it was notable when she tried to drink something. She is not having any difficulty with breathing or speech. When the symptoms persisted she felt she should be seen here. Patient denies any other symptoms. -: minutes(s) Location: neck Radiation: non-radiation Consistency: constant Improves with: none Worsens with: eating Associated Symptoms: denies other symptoms Treatments Prior to Arrival: none - Related Data Previous Rx's Medication Instructions Recorded Colome Carbonate [Colome 450 mg PO BID 28 Days tablet.er 06/02/19 Carbonate ER] Lurasidone HCl [Latuda] 60 mg PO HS 28 Days tab 06/02/19 Melatonin 15 mg PO HS 28 Days tablet 06/02/19 Nicotine 14Mg/24Hr Patch [Habitrol] 1 patch TRANSDERM DAILY 14 Days 06/02/19 patch hydrOXYzine PAMOATE [Vistaril] 50 mg PO BID PRN 28 Days cap 06/02/19 Allergies Allergy/AdvReac Type Severity Reaction Status Date / Time Penicillins Allergy Anaphylaxis Verified 09/09/19 23:28 sulfamethoxazole Allergy Rash/Hives Verified 09/09/19 23:28 [From Bactrim] trimethoprim [From Bactrim] Allergy Rash/Hives Verified 09/09/19 23:28 aspirin AdvReac Nausea & Verified 09/09/19 23:28 Vomiting Review of Systems ROS Statement: Those systems with pertinent positive or pertinent negative responses have been documented in the HPI. ROS Other: All systems not noted in ROS Statement are negative. 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, right chest wall abscess treated once w/ PICC line + IV abx recently-folowing with Dr Gurrola,memory impairment History of Any Multi-Drug Resistant Organisms: MRSA Date of last positivie culture/infection: 04/12/17 MDRO Source:: ASPIRATE Past Surgical History: Section, Hysterectomy, Orthopedic Surgery, Tonsillectomy Past Anesthesia/Blood Transfusion Reactions: No Reported Reaction Past Psychological History: Anxiety, Bipolar, Depression Smoking Status: Current every day smoker Past Alcohol Use History: None Reported Past Drug Use History: None Reported - Past Family History Father Family Medical History: Cancer Additional Family Medical History / Comment(s): Lung Mother Additional Family Medical History / Comment(s): Neurofibromatosis General Exam Limitations: no limitations General appearance: alert, in no apparent distress Head exam: Present: atraumatic, normocephalic Eye exam: Present: normal appearance. Absent: scleral icterus, conjunctival injection ENT exam: Present: normal oropharynx Neck exam: Present: normal inspection, full ROM. Absent: tenderness, meningismus Respiratory exam: Present: normal lung sounds bilaterally. Absent: respiratory distress, wheezes, rales, rhonchi, stridor Cardiovascular Exam: Present: regular rate, normal rhythm, normal heart sounds. Absent: systolic murmur, diastolic murmur, rubs, gallop GI/Abdominal exam: Present: soft. Absent: tenderness, guarding, rebound Extremities exam: Present: normal inspection, normal capillary refill. Absent: pedal edema, calf tenderness Back exam: Present: normal inspection. Absent: CVA tenderness (R), CVA tenderness (L) Neurological exam: Present: alert Skin exam: Present: warm, dry, intact, normal color. Absent: rash Course Vital Signs 09/09/19 23:23 Temperature 97.5 F L Pulse Rate 91 Respiratory 16 Rate Blood Pressure 136/82 O2 Sat by Pulse 100 Oximetry Medical Decision Making - Medical Decision Making The patient is feeling much better following the dose of diphenhydramine here. She does want to go home. I did also address the patient's recent depression and she states that she is feeling well enough to go home. She is not currently feeling suicidal. She will return here should her mood worsen or if she has any suicidal thoughts or if there are any recurrence of medication side effect. She will follow with her psychiatric state for a substitute medication. Disposition Clinical Impression: Adverse reaction to drug Disposition: HOME SELF-CARE Condition: Good Instructions (If sedation given, give patient instructions): Adverse Drug Reaction (ED) Is patient prescribed a controlled substance at d/c from ED?: No Referrals: None,Stated [REFERRING] - 1-2 days
[2019-09-10 02:07] VITALS: BP 123/72; PULSE 68
== END 2019-09-10 02:01 | disposition home or self-care (01) ==
LOC: EC 23:22
DX: R22.1 Localized swelling, mass and lump, neck (principal); T43.595A Adverse effect of other antipsychotics and neuroleptics, initial encounter; F17.200 Nicotine dependence, unspecified, uncomplicated; Z88.0 Allergy status to penicillin; Z88.1 Allergy status to other antibiotic agents; Z88.2 Allergy status to sulfonamides; Z88.6 Allergy status to analgesic agent
CPT/HCPCS: 99283

== ENCOUNTER → 2019-10-15 | Outpatient (CLI) | payer OTHER ==
[2019-10-15 18:54] LABS: African American GFR (CKD) 87.6 (60.0-200.0); Chol/HDL Ratio 5.52; Lithium 0.5 mmol/L (0.5-1.2); Non-African American GFR(CKD) 75.6 (60.0-200.0)
[2019-10-15 19:38] LABS: Hemoglobin A1C 5.7 % (4.0-6.0)
== END | disposition home or self-care (01) ==
LOC: LABWHC1 08:45
PROVIDERS: ATTEND Psychiatry & Neurology Psychiatry
DX: Z51.81 Encounter for therapeutic drug level monitoring (principal); Z79.899 Other long term (current) drug therapy
CPT/HCPCS: 36415; 80061; 80178; 82565; 82947; 83036; 84439; 84443; 84520

== ENCOUNTER → 2020-03-16 | Outpatient (CLI) | payer OTHER | END | disposition home or self-care (01) | LOC: LABWHC1 07:05 | PROVIDERS: ATTEND Psychiatry & Neurology Psychiatry | DX: Z51.81 Encounter for therapeutic drug level monitoring (principal); Z79.899 Other long term (current) drug therapy | CPT/HCPCS: 36415; 80178 ==

== ENCOUNTER → 2020-04-16 | Outpatient (CLI) | payer OTHER | END | disposition home or self-care (01) | LOC: LABWHC1 11:49 | PROVIDERS: ATTEND Family Medicine | DX: Z20.828 Contact with and (suspected) exposure to other viral communicable diseases (principal) | CPT/HCPCS: U0003; C9803 ==

== ENCOUNTER → 2021-03-04 | Outpatient (CLI) | payer OTHER ==
[2021-03-04 20:49] LABS: African American GFR (CKD) 99.6 (60.0-200.0); Blood Urea Nitrogen 7.9 mg/dL (9.0-27.0); Chol/HDL Ratio 7.12 Ratio; LDL Cholesterol,Calculated 193.4 mg/dL (0.0-131.0); Non-African American GFR(CKD) 85.9 (60.0-200.0); T4, Free (Free Thyroxine) 0.88 ng/dL (0.800-1.800); VLDL Calculation 57.6 mg/dL (5.00-40.00)
[2021-03-05 08:16] LABS: Lithium 0.3 mmol/L (0.50-1.20)
== END | disposition home or self-care (01) ==
LOC: LABWHC1 13:00
PROVIDERS: ATTEND Psychiatry & Neurology Psychiatry
DX: Z79.899 Other long term (current) drug therapy (principal)
CPT/HCPCS: 36415; 80061; 80178; 82565; 82947; 83036; 84439; 84443; 84520

== ENCOUNTER 2022-05-08 16:40 | Emergency (ER) | payer OTHER ==
[2022-05-08 17:00] VITALS: TEMP 98.1
--- NOTE | 2022-05-08 17:38 | ED ---
Dizziness HPI - General Source: patient, RN notes reviewed Mode of arrival: ambulatory Limitations: no limitations <Brittny Heredia - Last Filed: 05/08/22 17:39> <Bart Gifford - Last Filed: 05/09/22 00:23> - General Chief Complaint: Dizziness Stated Complaint: Dizziness Time Seen by Provider: 05/08/22 17:35 - History of Present Illness Initial Comments: Medical screening exam: Patient is a 51-year-old female who presents to the emergency department with a chief complaint of lightheadedness. Patient states she woke up with lightheadedness and shortness of breath this morning. Patient feels short of breath at rest. She does admit to an intermittent mild pressure in her chest with radiation to the back. The pain is worse with activity. She denies leg pain and swelling. Does have history of COPD-no supplemental oxygen at home. Patient currently vapes, quit smoking cigarettes in July, 37 year pack history. No personal or family history of DVT or PE. No recent long car rides or airplane travel. No hormone use. No fever, chills, upper respiratory symptoms, cough, nausea, vomiting, diarrhea, blood in stool. Patient does report change in her psychiatric medication doses 2 days ago. (Brittny Heredia) - Related Data Previous Rx's Medication Instructions Recorded [place] Carbonate [[place] 450 mg PO BID 28 Days tablet.er 06/02/19 Carbonate ER] Lurasidone HCl [Latuda] 60 mg PO HS 28 Days tab 06/02/19 Melatonin 15 mg PO HS 28 Days tablet 06/02/19 Nicotine 14Mg/24Hr Patch [Habitrol] 1 patch TRANSDERM DAILY 14 Days 06/02/19 patch hydrOXYzine pamoate [Vistaril] 50 mg PO BID PRN 28 Days cap 06/02/19 Meclizine [Antivert] 25 mg PO BID PRN #10 tab 05/08/22 Allergies Allergy/AdvReac Type Severity Reaction Status Date / Time Penicillins Allergy Anaphylaxis Verified 09/09/19 23:28 sulfamethoxazole Allergy Rash/Hives Verified 09/09/19 23:28 [From Bactrim] trimethoprim [From Bactrim] Allergy Rash/Hives Verified 09/09/19 23:28 aspirin AdvReac Nausea & Verified 09/09/19 23:28 Vomiting Review of Systems ROS Other: All systems not noted in ROS Statement are negative. <Brittny Heredia - Last Filed: 05/08/22 17:39> ROS Other: All systems not noted in ROS Statement are negative. <Bart Gifford - Last Filed: 05/09/22 00:23> ROS Statement: Those systems with pertinent positive or pertinent negative responses have been documented in the HPI. 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, right chest wall abscess treated once w/ PICC line + IV abx recently-folowing with Dr Gurrola,memory impairment History of Any Multi-Drug Resistant Organisms: MRSA Date of last positivie culture/infection: 04/12/17 MDRO Source:: ASPIRATE Past Surgical History: Section, Hysterectomy, Orthopedic Surgery, Tonsillectomy Past Anesthesia/Blood Transfusion Reactions: No Reported Reaction Past Psychological History: Anxiety, Bipolar, Depression Past Alcohol Use History: None Reported Past Drug Use History: None Reported - Past Family History Father Family Medical History: Cancer Additional Family Medical History / Comment(s): Lung Mother Additional Family Medical History / Comment(s): Neurofibromatosis <Brittny Heredia - Last Filed: 05/08/22 17:39> General Exam Limitations: no limitations <Brittny Heredia - Last Filed: 05/08/22 17:39> Limitations: no limitations General appearance: alert, in no apparent distress Head exam: Present: atraumatic, normocephalic, normal inspection Eye exam: Present: normal appearance, PERRL, EOMI. Absent: scleral icterus, conjunctival injection, periorbital swelling Neck exam: Present: normal inspection, full ROM Respiratory exam: Present: normal lung sounds bilaterally. Absent: respiratory distress, wheezes, rales, rhonchi, stridor Cardiovascular Exam: Present: regular rate, normal rhythm, normal heart sounds. Absent: systolic murmur, diastolic murmur, rubs, gallop, clicks Neurological exam: Present: alert, oriented X3, CN II-XII intact Expanded Patient oriented to: Present: person, place, time Speech: Present: fluid speech Cranial nerves: EOM's Intact: Normal Sensory exam: Upper Extremity Light Touch: Normal, Lower Extremity Light Touch: Normal Motor strength exam: RUE: 5, LUE: 5, RLE: 5, LLE: 5 Eye Response: (4) open spontaneously Motor Response: (6) obeys commands Verbal Response: (5) oriented [place] Total: 15 Psychiatric exam: Present: normal affect, normal mood Skin exam: Present: warm, dry, intact, normal color. Absent: rash <Bart Gifford - Last Filed: 05/09/22 00:23> Course Vital Signs 05/08/22 05/08/22 16:57 23:17 Temperature 98.1 F Pulse Rate 96 Pulse Rate [ 74 Sitting Pulse Oximetery] Pulse Rate [ 88 Standing Pulse Oximetery] Pulse Rate [ 76 Supine Pulse Oximetery] Respiratory 16 20 Rate Blood Pressure 149/79 Blood Pressure 122/78 [Sitting] Blood Pressure 120/78 [Standing] Blood Pressure 113/75 [Supine] O2 Sat by Pulse 99 100 Oximetry EKG Findings - EKG Comments: EKG Findings:: Sinus rhythm ventricular rate 88. IN interval 1:30. QRS 80. QT 351. QTC 396. EKG interpreted by myself. <Bart Gifford - Last Filed: 05/09/22 00:23> Medical Decision Making - Lab Data Result diagrams: 05/08/22 20:18 05/08/22 20:18 <Bart Gifford - Last Filed: 05/09/22 00:23> - Medical Decision Making Was pt. sent in by a medical professional or institution (, PA, [employer], urgent care, hospital, or half-way...) When possible be specific @ -[No] Did you speak to anyone other than the patient for history (EMS, parent, family, police, friend...)? What history was obtained from this source @ -[No] Did you review nursing and triage notes (agree or disagree)? Why? @ -[I reviewed and agree with nursing and triage notes] Were old charts reviewed (outside hosp., previous admission, EMS record, old EKG, old radiological studies, urgent care reports/EKG's, half-way records)? Report findings @ -[No old charts were reviewed] Differential Diagnosis (chest pain, altered mental status, abdominal pain women, abdominal pain men, vaginal bleeding, weakness, fever, dyspnea, syncope, headache, dizziness, GI bleed, back pain, seizure, CVA, palpatations, mental health)? @ -MDM Differential Dizziness: Benign paroxysmal positional Vertigo, Menieres disease, otitis media, acoustic neuroma, vertebrobasilar insufficiency, cerebellar stroke, encephalitis, hypovolemic, arrhythmia, coronary artery syndrome, anemia this is not meant to be an all-inclusive list EKG interpreted by me (3pts min.). @ -Yes, see note X-rays interpreted by me (1pt min.). @ -No acute process CT interpreted by me (1pt min.). @ -[None done] U/S interpreted by me (1pt. min.). @ -[None done] What testing was considered but not performed or refused? (CT, X-rays, U/S, labs)? Why? @ -CT of the brain was offered, patient states that she would rather follow-up with her PCP tomorrow to determine if she still needs this study What meds were considered but not given or refused? Why? @ -[None] Did you discuss the management of the patient with other professionals (professionals i.e. , PA, [employer], lab, RT, psych nurse, social media designer, family lawyer, teacher, telecommunications officer, supervisor case loading)? Give summary @ -[No] Was smoking cessation discussed for >3mins.? @ -[No] Was critical care preformed (if so, how long)? @ -[No] Were there social determinants of health that impacted care today? How? (Homelessness, low income, unemployed, alcoholism, drug addiction, transportation, low edu. Level, literacy, decrease access to med. care, penitentiary, rehab)? @ -[No] Was there de-escalation of care discussed even if they declined (Discuss DNR or withdrawal of care, Hospice)? DNR status @ -[No] What co-morbidities impacted this encounter? (DM, HTN, Smoking, COPD, CAD, Cancer, CVA, ARF, Chemo, Hep., AIDS, mental health diagnosis, sleep apnea, morbid obesity)? @ -[None] Was patient admitted / discharged? Hospital course, mention meds given and route, prescriptions, significant lab abnormalities, going to OR and other pertinent info. @ -Patient is a 51-year-old female presenting with chief complaint of lightheadedness. Symptoms started today, they are more prominent with activity. She admits to some difficulty breathing, no chest pain or palpitations. Physical examination is unremarkable, no focal neurological deficits. Heart and lungs are clear to auscultation. Orthostatic vitals are WNL. Lab work is grossly negative. Negative d-dimer and troponin. EKG shows no dysrhythmia. Chest x-ray shows no acute process. Patient is negative for influenza, RSV, and Covid. Patient was given meclizine. I offered the patient a CT of the brain, patient states that she has an appointment with her PCP tomorrow evening, she would rather wait and see if her symptoms persist and not proceed with CT tonight. Patient is of sound mind and body able to make her own decisions. She will be discharged home. Follow-up with PCP at scheduled appointment tomorrow. Report back to ER with any new or worsening symptoms. Discussed return parameters and answered all questions. Patient conveyed verbal understanding and agreed to the plan. I discussed this case in detail with my attending Dr. Maurice Undiagnosed new problem with uncertain prognosis? @ -[No] Drug Therapy requiring intensive monitoring for toxicity (Heparin, Nitro, Insulin, Cardizem)? @ -[No] Were any procedures done? @ -[No] Diagnosis/symptom? @ -Lightheadedness Acute, or Chronic, or Acute on Chronic? @ -Acute Uncomplicated (without systemic symptoms) or Complicated (systemic symptoms)? @ -Uncomplicated Side effects of treatment? @ -[No] Exacerbation, Progression, or Severe Exacerbation? @ -[No] Poses a threat to life or bodily function? How? (Chest pain, [place], [place], pneumonia, PE, COPD, DKA, ARF, appy, cholecystitis, CVA, Diverticulitis, Homicidal, Suicidal, threat to staff... and all critical care pts) @ -Unlikely (Bart Gifford) - Lab Data Lab Results 05/08/22 05/08/22 05/08/22 Range/Units 20:18 20:18 20:18 WBC 7.8 (3.8-10.6) k/uL RBC 4.67 (3.80-5.40) m/uL Hgb 13.5 (11.4-16.0) gm/dL Hct 39.9 (34.0-46.0) % MCV 85.5 (80.0-100.0) fL MCH 29.0 (25.0-35.0) pg MCHC 33.9 (31.0-37.0) g/dL RDW 13.3 (11.5-15.5) % Plt Count 389 (150-450) k/uL MPV 7.3 Neutrophils % 53 % Lymphocytes % 35 % Monocytes % 7 % Eosinophils % 2 % Basophils % 1 % Neutrophils # 4.1 (1.3-7.7) k/uL Lymphocytes # 2.8 (1.0-4.8) k/uL Monocytes # 0.6 (0-1.0) k/uL Eosinophils # 0.1 (0-0.7) k/uL Basophils # 0.1 (0-0.2) k/uL PT 9.8 (9.0-12.0) sec INR 0.9 (<1.2) APTT 25.4 (22.0-30.0) sec D-Dimer 0.35 (<0.60) mg/L FEU Sodium 142 (137-145) mmol/L Potassium 3.9 (3.5-5.1) mmol/L Chloride 113 H (98-107) mmol/L Carbon Dioxide 18 L (22-30) mmol/L Anion Gap 11 mmol/L BUN 12 (7-17) mg/dL Creatinine 0.84 (0.52-1.04) mg/dL Est GFR (CKD-EPI)AfAm >90 (>60 ml/min/1.73 sqM) Est GFR (CKD-EPI)NonAf 81 (>60 ml/min/1.73 sqM) Glucose 91 (74-99) mg/dL Calcium 10.1 (8.4-10.2) mg/dL Magnesium 2.2 (1.6-2.3) mg/dL Total Bilirubin 0.3 (0.2-1.3) mg/dL AST 20 (14-36) U/L ALT 22 (4-34) U/L Alkaline Phosphatase 92 (38-126) U/L Troponin I (0.000-0.034) ng/mL NT-Pro-B Natriuret Pep pg/mL Total Protein 8.1 (6.3-8.2) g/dL Albumin 4.6 (3.5-5.0) g/dL Lipase 56 (23-300) U/L Influenza Type A (PCR) (Not Detectd) Influenza Type B (PCR) (Not Detectd) RSV (PCR) (Not Detectd) SARS-CoV-2 (PCR) (Not Detectd) 05/08/22 05/08/22 05/08/22 Range/Units 20:18 20:18 20:18 WBC (3.8-10.6) k/uL RBC (3.80-5.40) m/uL Hgb (11.4-16.0) gm/dL Hct (34.0-46.0) % MCV (80.0-100.0) fL MCH (25.0-35.0) pg MCHC (31.0-37.0) g/dL RDW (11.5-15.5) % Plt Count (150-450) k/uL MPV Neutrophils % % Lymphocytes % % Monocytes % % Eosinophils % % Basophils % % Neutrophils # (1.3-7.7) k/uL Lymphocytes # (1.0-4.8) k/uL Monocytes # (0-1.0) k/uL Eosinophils # (0-0.7) k/uL Basophils # (0-0.2) k/uL PT (9.0-12.0) sec INR (<1.2) APTT (22.0-30.0) sec D-Dimer (<0.60) mg/L FEU Sodium (137-145) mmol/L Potassium (3.5-5.1) mmol/L Chloride (98-107) mmol/L Carbon Dioxide (22-30) mmol/L Anion Gap mmol/L BUN (7-17) mg/dL Creatinine (0.52-1.04) mg/dL Est GFR (CKD-EPI)AfAm (>60 ml/min/1.73 sqM) Est GFR (CKD-EPI)NonAf (>60 ml/min/1.73 sqM) Glucose (74-99) mg/dL Calcium (8.4-10.2) mg/dL Magnesium (1.6-2.3) mg/dL Total Bilirubin (0.2-1.3) mg/dL AST (14-36) U/L ALT (4-34) U/L Alkaline Phosphatase (38-126) U/L Troponin I <0.012 (0.000-0.034) ng/mL NT-Pro-B Natriuret Pep 17 pg/mL Total Protein (6.3-8.2) g/dL Albumin (3.5-5.0) g/dL Lipase (23-300) U/L Influenza Type A (PCR) Not Detected (Not Detectd) Influenza Type B (PCR) Not Detected (Not Detectd) RSV (PCR) Not Detected (Not Detectd) SARS-CoV-2 (PCR) Not Detected (Not Detectd) Disposition <Brittny Heredia - Last Filed: 05/08/22 17:39> Is patient prescribed a controlled substance at d/c from ED?: No Time of Disposition: 23:55 <Bart Gifford - Last Filed: 05/09/22 00:23> Clinical Impression: Lightheadedness Disposition: HOME SELF-CARE Condition: Good Instructions (If sedation given, give patient instructions): Dizziness (ED) Additional Instructions: Follow-up with PCP at scheduled appointment tomorrow. Report back to ER with any new or worsening symptoms. Take medication as prescribed. Prescriptions: Meclizine [Antivert] 25 mg PO BID PRN #10 tab PRN Reason: Vertigo Referrals: Morgan Srivastava MD [Primary Care Provider] - 1-2 days
--- NOTE | 2022-05-08 18:04 | XR ---
EXAMINATION TYPE: XR chest 2V DATE OF EXAM: 05/08/2022 COMPARISON: 10/06/2017 HISTORY: Short of breath TECHNIQUE: FINDINGS: Heart is normal. Lungs are clear. Diaphragm is normal. Bony thorax is normal. IMPRESSION: Normal chest. No change.
[2022-05-08 20:32] LABS: Basophils # (A) 0.1 k/uL (0-0.2); Basophils % (A) 1 %; Eosinophils # (A) 0.1 k/uL (0-0.7); Eosinophils % (A) 2 %; HCT 39.9 % (34.0-46.0); HGB 13.5 gm/dL (11.4-16.0); Lymphocytes # (A) 2.8 k/uL (1.0-4.8); Lymphocytes % (A) 35 %; MCHC 33.9 g/dL (31.0-37.0); MCV 85.5 fL (80.0-100.0); Mean Platelet Volume 7.3; Monocytes # (A) 0.6 k/uL (0-1.0); Monocytes % (A) 7 %; Neutrophils # (A) 4.1 k/uL (1.3-7.7); Neutrophils % (A) 53 %; Platelet Count 389 k/uL (150-450); RBC 4.67 m/uL (3.80-5.40); RDW 13.3 % (11.5-15.5); WBC 7.8 k/uL (3.8-10.6)
[2022-05-08 20:41] LABS: ALT 22 U/L (4-34); AST 20 U/L (14-36); African American GFR (CKD) >90 (>60 ml/min/1.73 sqM); Albumin 4.6 g/dL (3.5-5.0); Alkaline Phosphatase 92 U/L (38-126); Anion Gap 11 mmol/L; Blood Urea Nitrogen 12 mg/dL (7-17); Calcium 10.1 mg/dL (8.4-10.2); Carbon Dioxide 18 mmol/L (22-30); Chloride 113 mmol/L (98-107); Glucose 91 mg/dL (74-99); Lipase 56 U/L (23-300); Magnesium 2.2 mg/dL (1.6-2.3); Non-African American GFR(CKD) 81 (>60 ml/min/1.73 sqM); Potassium 3.9 mmol/L (3.5-5.1); Sodium 142 mmol/L (137-145); Total Bilirubin 0.3 mg/dL (0.2-1.3); Total Protein 8.1 g/dL (6.3-8.2)
[2022-05-08 20:54] LABS: INR 0.9 (<1.2); Partial Thromboplastin Time 25.4 sec (22.0-30.0); Prothrombin Time 9.8 sec (9.0-12.0)
[2022-05-08] MEDS ORDERED: MECLIZINE 12.5 MG TAB PO STA (22:57)
[2022-05-08 23:21] VITALS: BP 113/75; PULSE 76; RESP 20
== END 2022-05-09 00:20 | disposition home or self-care (01) ==
LOC: EC 16:40
DX: R42 Dizziness and giddiness (principal); F31.9 Bipolar disorder, unspecified; F41.9 Anxiety disorder, unspecified; J44.9 Chronic obstructive pulmonary disease, unspecified; Z88.0 Allergy status to penicillin; Z88.2 Allergy status to sulfonamides; Z88.8 Allergy status to other drugs, medicaments and biological substances; Z20.822 Contact with and (suspected) exposure to COVID-19
CPT/HCPCS: 36415; 71046; 80053; 83690; 83735; 83880; 84484; 85025; 85379; 85610; 85730; 87636; 93005; 99284

== ENCOUNTER 2022-10-11 10:59 | Emergency (ER) | payer OTHER ==
[2022-10-11 11:06] VITALS: TEMP 97.8
[2022-10-11] MEDS ORDERED: LORazepam 1 MG TAB PO STA (11:27)
[2022-10-11] MEDS ORDERED: SODIUM CHLORIDE 0.9% 1,000 ML IV STA (11:27)
[2022-10-11 12:04] VITALS: RESP 16
[2022-10-11 12:06] LABS: Basophils % (A) 0 %; Eosinophils # (A) 0.1 k/uL (0-0.7); Eosinophils % (A) 1 %; HGB 13.1 gm/dL (11.4-16.0); Lymphocytes # (A) 1.7 k/uL (1.0-4.8); Lymphocytes % (A) 26 %; MCH 29.1 pg (25.0-35.0); MCHC 33.6 g/dL (31.0-37.0); MCV 86.7 fL (80.0-100.0); Mean Platelet Volume 7.5; Monocytes # (A) 0.4 k/uL (0-1.0); Monocytes % (A) 6 %; Neutrophils # (A) 4.3 k/uL (1.3-7.7); Neutrophils % (A) 65 %; Platelet Count 333 k/uL (150-450); RBC 4.49 m/uL (3.80-5.40); RDW 14.3 % (11.5-15.5); WBC 6.7 k/uL (3.8-10.6)
[2022-10-11 12:20] LABS: INR 0.9 (<1.2); Partial Thromboplastin Time 24.4 sec (22.0-30.0); Prothrombin Time 9.5 sec (9.0-12.0)
--- NOTE | 2022-10-11 12:23 | XR ---
EXAMINATION TYPE: XR chest 2V DATE OF EXAM: 10/11/2022 COMPARISON: 05/08/2022 HISTORY: Shortness of breath TECHNIQUE: Frontal and lateral views of the chest are obtained. FINDINGS: Scattered senescent parenchymal changes noted. Hyperinflation compatible with COPD. No evidence for infiltrate. No evidence for atelectasis. Heart size is stable. Mediastinal structures are stable and grossly unremarkable. No evidence for hilar prominence. Degenerative changes dorsal spine. IMPRESSION: 1. No evidence for acute pulmonary disease.
[2022-10-11 12:32] LABS: ALT 21 U/L (4-34); AST 24 U/L (14-36); African American GFR (CKD) >90 (>60 ml/min/1.73 sqM); Albumin 4.7 g/dL (3.5-5.0); Alkaline Phosphatase 100 U/L (38-126); Anion Gap 9 mmol/L; Blood Urea Nitrogen 5 mg/dL (7-17); Calcium 10.1 mg/dL (8.4-10.2); Carbon Dioxide 25 mmol/L (22-30); Chloride 106 mmol/L (98-107); Glucose 103 mg/dL (74-99); Magnesium 2.2 mg/dL (1.6-2.3); Non-African American GFR(CKD) >90 (>60 ml/min/1.73 sqM); Sodium 140 mmol/L (137-145); Total Bilirubin 0.4 mg/dL (0.2-1.3); Total Protein 8.1 g/dL (6.3-8.2)
--- NOTE | 2022-10-11 12:53 | CT ---
EXAMINATION TYPE: CT brain wo con DATE OF EXAM: 10/11/2022 COMPARISON: None HISTORY: Facial numbness, concern for stroke. Not called a code stroke. No pt hx of TIA or stroke. CT DLP: 1079.[address] of the brain was performed. The ventricles, basal cisterns and sulci overlying the cerebral convexities demonstrate mild enlargem ent. There is no evidence for intracranial hemorrhage or sulcal effacement. There is decreased attenuation about the periventricular white matter and deep white matter of both c erebral hemispheres, compatible with chronic small vessel ischemia. Differential diagnosis does inclu de demyelination. No mass effects are seen.No midline shift. Osseous calvarium is intact. If symptoms persist consider MRI. IMPRESSION: 1. Age related atrophic and chronic small vessel ischemic change without acute intracranial process s een at this time.
--- NOTE | 2022-10-11 13:26 | ED ---
General Adult HPI - General Chief complaint: Neuro Symptoms/Deficit Stated complaint: Blur Vision/Numbness face Time Seen by Provider: 10/11/22 11:08 Source: patient, RN notes reviewed, old records reviewed Mode of arrival: ambulatory Limitations: no limitations - History of Present Illness Initial comments: Patient is a 52-year-old female presents emergency Department complaining of an episode at work where she felt both arms go numb as well as her vision started to go out. She had some trace numbness as well. Was driven here for further evaluation. States symptoms are bilateral and are improving. States she is under a lot of stress as a family member did this week. States she does feel extremely anxious. Does have a history of anxiety and panic attacks. Denies any chest pain or shortness of breath but did have some chest pain last night. Denies any abdominal pain, nausea, vomiting. Has no other acute complaint at this time. No history of strokes. Is not thinners. Denies any trauma. Presents for further evaluation. - Related Data Home Medications Medication Instructions Recorded Confirmed Benztropine Mesylate [Cogentin] 2 mg PO HS 10/11/22 10/11/22 Lurasidone [Latuda] 80 mg PO HS 10/11/22 10/11/22 Previous Rx's Medication Instructions Recorded LORazepam [Ativan] 0.5 mg PO HS PRN 3 Days #3 tab 10/11/22 Allergies Allergy/AdvReac Type Severity Reaction Status Date / Time Penicillins Allergy Anaphylaxis Verified 10/11/22 13:20 sulfamethoxazole Allergy Rash/Hives Verified 10/11/22 13:20 [From Bactrim] trimethoprim [From Bactrim] Allergy Rash/Hives Verified 10/11/22 13:20 aspirin AdvReac Nausea & Verified 10/11/22 13:20 Vomiting Review of Systems ROS Statement: Those systems with pertinent positive or pertinent negative responses have been documented in the HPI. Review of Systems: CONST: Denies fever EYES: Denies blurry vision ENT: Denies nasal congestion C/V: Denies Chest pain RESP: Denies shortness of breath GI: Denies abdominal pain : Denies dysuria SKIN: Denies rash. MSK: Denies joint pain. NEURO: Denies headache ROS Other: All systems not noted in ROS Statement are negative. 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, right chest wall abscess treated once w/ PICC line + IV abx recently-folowing with Dr Gurrola,memory impairment History of Any Multi-Drug Resistant Organisms: MRSA Date of last positivie culture/infection: 04/12/17 MDRO Source:: ASPIRATE Past Surgical History: Section, Hysterectomy, Orthopedic Surgery, Tonsillectomy Past Anesthesia/Blood Transfusion Reactions: No Reported Reaction Past Psychological History: Anxiety, Bipolar, Depression Smoking Status: Vaper Past Alcohol Use History: None Reported Past Drug Use History: None Reported - Past Family History Father Family Medical History: Cancer Additional Family Medical History / Comment(s): Lung Mother Additional Family Medical History / Comment(s): Neurofibromatosis General Exam - General Exam Comments Initial Comments: General: Appears in no acute distress. HEAD: Normal with no signs of head trauma. EYES: PERRLA, EOMI, conjunctiva normal, no discharge. Pupils are 3 mm and equal bilaterally. ENT: Hearing grossly intact, normal oropharynx. RESPIRATORY: Clear breath sounds bilaterally. No wheezes, rales, or rhonchi. C/V: Regular rate and rhythm. S1 and S2 auscultated, peripheral pulses 2+ and intact throughout ABD: Abd is soft, nontender, nondistended EXT: Normal range of motion, no obvious deformity SKIN: No rashes or lesions observed on exposed skin. NEURO: Alert and oriented x 4. Cranial nerves II-XII intact. No focal sensory or strength deficits. NIH is 0. No obvious deficits appreciated. Subjective paresthesias of bilateral cheeks at this time. GCS of 15. Ambulating without difficulty. Limitations: no limitations Course Vital Signs 10/11/22 10/11/22 10/11/22 11:01 12:03 13:54 Temperature 97.8 F 97.8 F Pulse Rate 83 64 71 Respiratory 18 16 16 Rate Blood Pressure 148/90 132/76 115/58 O2 Sat by Pulse 99 100 100 Oximetry Medical Decision Making - Medical Decision Making Was pt. sent in by a medical professional or institution (, PA, [employer], urgent care, hospital, or jail...) When possible be specific @ -No Did you speak to anyone other than the patient for history (EMS, parent, family, police, friend...)? What history was obtained from this source @ -No Did you review nursing and triage notes (agree or disagree)? Why? @ -I reviewed and agree with nursing and triage notes Were old charts reviewed (outside hosp., previous admission, EMS record, old EKG, old radiological studies, urgent care reports/EKG's, jail records)? Report findings @ -No old charts were reviewed Differential Diagnosis (chest pain, altered mental status, abdominal pain women, abdominal pain men, vaginal bleeding, weakness, fever, dyspnea, syncope, headache, dizziness, GI bleed, back pain, seizure, CVA, palpatations, mental health, musculoskeletal)? @ -Anxiety, CVA, dehydration, infection, ACS. This list is not all-inclusive. EKG interpreted by me (3pts min.). @ -As above X-rays interpreted by me (1pt min.). @ -Chest x-ray reveals no obvious acute cardio pulmonary process. CT interpreted by me (1pt min.). @ -CT of the brain revealed no evidence of acute process, chronic degenerative changes present. U/S interpreted by me (1pt. min.). @ -None done What testing was considered but not performed or refused? (CT, X-rays, U/S, labs)? Why? @ -None What meds were considered but not given or refused? Why? @ -None Did you discuss the management of the patient with other professionals (professionals i.e. , PA, [employer], lab, RT, psych nurse, addiction social worker, preforms laminator, teacher, customer service security officer, physician practice market manager)? Give summary @ -No Was smoking cessation discussed for >3mins.? @ -No Was critical care preformed (if so, how long)? @ -No Were there social determinants of health that impacted care today? How? (Homelessness, low income, unemployed, alcoholism, drug addiction, transportation, low edu. Level, literacy, decrease access to med. care, fpc, rehab)? @ -No Was there de-escalation of care discussed even if they declined (Discuss DNR or withdrawal of care, Hospice)? DNR status @ -No What co-morbidities impacted this encounter? (DM, HTN, Smoking, COPD, CAD, Cancer, CVA, ARF, Chemo, Hep., AIDS, mental health diagnosis, sleep apnea, morbid obesity)? @ -None Was patient admitted / discharged? Hospital course, mention meds given and route, prescriptions, significant lab abnormalities, going to OR and other pertinent info. @ -Based on the patient's presentation and physical exam, she presents with subjective paresthesias over the cheeks. Had some paresthesias as well as the arms which has since resolved. Appears extremely anxious and she does believe this is likely related to panic attacks/anxiety due to recent stressors. However we will obtain cardiopulmonary labs as well as CT brain. She was in agreement this plan. Vital signs are within acceptable limits. She'll be given a dose of Ativan as well as IV fluids for symptomatic treatment. Last known well was last night and NIH is 0. CT brain is unremarkable. Chest x-ray is unremarkable. Labs are within acceptable limits as well including undetectable troponin. EKG shows no evidenc e of acute ischemia. On reevaluation, patient's subjective cheek paresthesias have resolved. She f eels improved. We discussed her workup. I believe it is safe for her to be discharged home. She was in agreement with this plan. I will provide the patient with a prescription for 3 tablets of Ativan 0.5 mg. I instructed the patient to follow up with their PCP in the next 1-3 days. I explained that the patient should return to the emergency department if they experience any worsening symptoms. Strict return precautions were discussed with the patient. The patient expressed understanding of these instructions. I answered all questions that the patient had. The patient was discharged home in good condition with their prescriptions and follow up information. Undiagnosed new problem with uncertain prognosis? @ -No Drug Therapy requiring intensive monitoring for toxicity (Heparin, Nitro, Insulin, Cardizem)? @ -No Were any procedures done? @ -No Diagnosis/symptom? @ -Anxiety, subjective paresthesias Acute, or Chronic, or Acute on Chronic? @ -Acute Uncomplicated (without systemic symptoms) or Complicated (systemic symptoms)? @ -Uncomplicated Side effects of treatment? @ -No Exacerbation, Progression, or Severe Exacerbation? @ -No Poses a threat to life or bodily function? How? (Chest pain, USA, MS, pneumonia, PE, COPD, DKA, ARF, appy, cholecystitis, CVA, Diverticulitis, Homicidal, Suicidal, threat to staff... and all critical care pts) @ -No - Lab Data Result diagrams: 10/11/22 11:57 10/11/22 11:57 Lab Results 10/11/22 10/11/22 10/11/22 Range/Units 11:57 11:57 11:57 WBC 6.7 (3.8-10.6) k/uL RBC 4.49 (3.80-5.40) m/uL Hgb 13.1 (11.4-16.0) gm/dL Hct 39.0 (34.0-46.0) % MCV 86.7 (80.0-100.0) fL MCH 29.1 (25.0-35.0) pg MCHC 33.6 (31.0-37.0) g/dL RDW 14.3 (11.5-15.5) % Plt Count 333 (150-450) k/uL MPV 7.5 Neutrophils % 65 % Lymphocytes % 26 % Monocytes % 6 % Eosinophils % 1 % Basophils % 0 % Neutrophils # 4.3 (1.3-7.7) k/uL Lymphocytes # 1.7 (1.0-4.8) k/uL Monocytes # 0.4 (0-1.0) k/uL Eosinophils # 0.1 (0-0.7) k/uL Basophils # 0.0 (0-0.2) k/uL PT 9.5 (9.0-12.0) sec INR 0.9 (<1.2) APTT 24.4 (22.0-30.0) sec Sodium 140 (137-145) mmol/L Potassium 4.0 (3.5-5.1) mmol/L Chloride 106 (98-107) mmol/L Carbon Dioxide 25 (22-30) mmol/L Anion Gap 9 mmol/L BUN 5 L (7-17) mg/dL Creatinine 0.68 (0.52-1.04) mg/dL Est GFR (CKD-EPI)AfAm >90 (>60 ml/min/1.73 sqM) Est GFR (CKD-EPI)NonAf >90 (>60 ml/min/1.73 sqM) Glucose 103 H (74-99) mg/dL Calcium 10.1 (8.4-10.2) mg/dL Magnesium 2.2 (1.6-2.3) mg/dL Total Bilirubin 0.4 (0.2-1.3) mg/dL AST 24 (14-36) U/L ALT 21 (4-34) U/L Alkaline Phosphatase 100 (38-126) U/L Troponin I (0.000-0.034) ng/mL Total Protein 8.1 (6.3-8.2) g/dL Albumin 4.7 (3.5-5.0) g/dL 10/11/22 Range/Units 11:57 WBC (3.8-10.6) k/uL RBC (3.80-5.40) m/uL Hgb (11.4-16.0) gm/dL Hct (34.0-46.0) % MCV (80.0-100.0) fL MCH (25.0-35.0) pg MCHC (31.0-37.0) g/dL RDW (11.5-15.5) % Plt Count (150-450) k/uL MPV Neutrophils % % Lymphocytes % % Monocytes % % Eosinophils % % Basophils % % Neutrophils # (1.3-7.7) k/uL Lymphocytes # (1.0-4.8) k/uL Monocytes # (0-1.0) k/uL Eosinophils # (0-0.7) k/uL Basophils # (0-0.2) k/uL PT (9.0-12.0) sec INR (<1.2) APTT (22.0-30.0) sec Sodium (137-145) mmol/L Potassium (3.5-5.1) mmol/L Chloride (98-107) mmol/L Carbon Dioxide (22-30) mmol/L Anion Gap mmol/L BUN (7-17) mg/dL Creatinine (0.52-1.04) mg/dL Est GFR (CKD-EPI)AfAm (>60 ml/min/1.73 sqM) Est GFR (CKD-EPI)NonAf (>60 ml/min/1.73 sqM) Glucose (74-99) mg/dL Calcium (8.4-10.2) mg/dL Magnesium (1.6-2.3) mg/dL Total Bilirubin (0.2-1.3) mg/dL AST (14-36) U/L ALT (4-34) U/L Alkaline Phosphatase (38-126) U/L Troponin I <0.012 (0.000-0.034) ng/mL Total Protein (6.3-8.2) g/dL Albumin (3.5-5.0) g/dL - EKG Data -: EKG Interpreted by Me EKG Comments: 12-lead Electrocardiogram Interpretation Note EKG was reviewed and interpreted by myself. 12-lead ECG performed at 1148 is interpreted by me as revealing normal sinus rhythm at a rate of 66 beats per minute. [place] is normal. [place] interval is 134 ms, QRS duration is 85 ms, QTc is 390 ms.. Chronic T-wave inversion in lead V2. Isolated T-wave inversion in lead III. There were no acute ST or T wave abnormalities to suggest myocardial ischemia or injury. R wave progression across the precordium was satisfactory. By my interpretation this EKG is non-diagnostic for acute ischemia. Compared with EKG from April 2022. Disposition Clinical Impression: Anxiety, Facial paresthesia Disposition: HOME SELF-CARE Condition: Good Instructions (If sedation given, give patient instructions): Anxiety (ED) Prescriptions: LORazepam [Ativan] 0.5 mg PO HS PRN 3 Days #3 tab PRN Reason: Anxiety Is patient prescribed a controlled substance at d/c from ED?: No When asked, does pt state using other controlled substances?: Yes Referrals: Morgan Srivastava MD [Primary Care Provider] - 1-2 days Time of Disposition: 13:12
[2022-10-11 13:55] VITALS: BP 115/58; PULSE 71
== END 2022-10-11 13:55 | disposition home or self-care (01) ==
LOC: EC 10:59
DX: F41.9 Anxiety disorder, unspecified (principal); R20.2 Paresthesia of skin; I67.82 Cerebral ischemia; J44.9 Chronic obstructive pulmonary disease, unspecified; F31.9 Bipolar disorder, unspecified; F17.290 Nicotine dependence, other tobacco product, uncomplicated; Z79.899 Other long term (current) drug therapy; Z88.2 Allergy status to sulfonamides; Z88.0 Allergy status to penicillin; Z88.6 Allergy status to analgesic agent; Z88.1 Allergy status to other antibiotic agents
CPT/HCPCS: 36415; 70450; 71046; 80053; 83735; 84484; 85025; 85610; 85730; 93005; 96360; 96361; 99284

== ENCOUNTER 2023-06-14 12:28 | Emergency (ER) | payer OTHER ==
[2023-06-14 12:57] VITALS: BP 145/97; PULSE 83; RESP 20; TEMP 98.4
--- NOTE | 2023-06-14 13:39 | ED ---
Psych HPI - General Source: patient, RN notes reviewed Mode of arrival: ambulatory Limitations: no limitations <Alexandru Agosto - Last Filed: 06/14/23 14:17> <Dayday Trevizo - Last Filed: 06/14/23 17:45> - General Chief Complaint: Psychiatric Symptoms Stated Complaint: Mental health Time Seen by Provider: 06/14/23 12:47 - History of Present Illness Initial Comments: 52-year-old female presents emergency department complaint depression, suicide ideation. Patient states she was off her medication she states she is normally on Latuda. Patient states she rarely drinks denies any alcohol abuse. She states that she talk to her counselor therapist advised her to come up to the emergency department. (Alexandru Agosto) - Related Data Home Medications Medication Instructions Recorded Confirmed Benztropine Mesylate [Cogentin] 2 mg PO HS 10/11/22 10/11/22 Lurasidone [Latuda] 80 mg PO HS 10/11/22 10/11/22 Previous Rx's Medication Instructions Recorded LORazepam [Ativan] 0.5 mg PO HS PRN 3 Days #3 tab 10/11/22 Allergies Allergy/AdvReac Type Severity Reaction Status Date / Time Penicillins Allergy Anaphylaxis Verified 06/14/23 12:39 sulfamethoxazole Allergy Rash/Hives Verified 06/14/23 12:39 [From Bactrim] trimethoprim [From Bactrim] Allergy Rash/Hives Verified 06/14/23 12:39 aspirin AdvReac Nausea & Verified 06/14/23 12:39 Vomiting Review of Systems ROS Other: All systems not noted in ROS Statement are negative. <Alexandru Agosto - Last Filed: 06/14/23 14:17> ROS Other: All systems not noted in ROS Statement are negative. <Dayday Trevizo - Last Filed: 06/14/23 17:45> ROS Statement: Those systems with pertinent positive or pertinent negative responses have been documented in the HPI. 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, right chest wall abscess treated once w/ PICC line + IV abx recently-folowing with Dr Gurrola,memory impairment History of Any Multi-Drug Resistant Organisms: MRSA Date of last positivie culture/infection: 04/12/17 MDRO Source:: ASPIRATE Past Surgical History: Section, Hysterectomy, Orthopedic Surgery, Tonsillectomy Past Anesthesia/Blood Transfusion Reactions: No Reported Reaction Past Psychological History: Anxiety, Bipolar, Depression Smoking Status: Vaper Past Alcohol Use History: None Reported Past Drug Use History: None Reported - Past Family History Father Family Medical History: Cancer Additional Family Medical History / Comment(s): Lung Mother Additional Family Medical History / Comment(s): Neurofibromatosis <Alexandru Agosto - Last Filed: 06/14/23 14:17> General Exam Limitations: no limitations General appearance: alert, in no apparent distress Head exam: Present: atraumatic, normocephalic, normal inspection Eye exam: Present: normal appearance, PERRL, EOMI. Absent: scleral icterus, conjunctival injection, periorbital swelling ENT exam: Present: normal exam, mucous membranes moist Neck exam: Present: normal inspection, full ROM. Absent: tenderness, meningismus, lymphadenopathy Respiratory exam: Present: normal lung sounds bilaterally. Absent: respiratory distress, wheezes, rales, rhonchi, stridor Cardiovascular Exam: Present: regular rate, normal rhythm, normal heart sounds. Absent: systolic murmur, diastolic murmur, rubs, gallop, clicks Neurological exam: Present: alert Psychiatric exam: Present: depressed, flat affect <Alexandru Agosto - Last Filed: 06/14/23 14:17> - General Exam Comments Initial Comments: Visual Physical Exam Vital signs reviewed General: Well-appearing, nontoxic, no acute distress. Head: Normocephalic, atraumatic Eyes: PERRLA, EOMI ENT: Airway patent Chest: Nonlabored breathing Skin: No visual rash, normal skin tone Neuro: Alert and oriented 3 Musculoskeletal: No gross abnormalities (Alexandru Agosto) Course Vital Signs 06/14/23 12:36 Temperature 98.4 F Pulse Rate 83 Respiratory 20 Rate Blood Pressure 145/97 O2 Sat by Pulse 97 Oximetry Medical Decision Making <Alexandru Agosto - Last Filed: 06/14/23 14:17> <Dayday Trevizo - Last Filed: 06/14/23 17:45> - Medical Decision Making I completed the quick note portion of this chart signed Alexandru Agosto PA-C (Alexandru Agosto) The patient was evaluated by mental health and they feel as though she still for discharge home. They relate that she has significant chronicity of her symptoms. She has excellent outpatient follow-up. They relate that she came in requesting medication adjustments. They do not feel as though any medication adjustments are necessary at this time. She apparently has an appointment with her psychiatric team the next several days. They are to encourage her to follow-up with her psychiatric team. Patient appears stable for discharge home. Close follow up with primary care and psychiatric team who recommended. (Dayday Trevizo) Disposition <Alexandru Agosto - Last Filed: 06/14/23 14:17> Is patient prescribed a controlled substance at d/c from ED?: No Time of Disposition: 17:45 <Dayday Trevizo - Last Filed: 06/14/23 17:45> Clinical Impression: Depression Disposition: HOME SELF-CARE Condition: Good Instructions (If sedation given, give patient instructions): Depression (ED) Referrals: Morgan Srivastava MD [Primary Care Provider] - 1-2 days
== END 2023-06-14 18:04 | disposition home or self-care (01) ==
LOC: EC 12:28
DX: F32.A Depression, unspecified (principal); J44.9 Chronic obstructive pulmonary disease, unspecified; F41.9 Anxiety disorder, unspecified; F17.290 Nicotine dependence, other tobacco product, uncomplicated; Z79.899 Other long term (current) drug therapy; Z88.0 Allergy status to penicillin; Z88.6 Allergy status to analgesic agent; Z88.2 Allergy status to sulfonamides; Z88.8 Allergy status to other drugs, medicaments and biological substances
CPT/HCPCS: 82075; 99284

== ENCOUNTER 2023-06-26 07:20 | Emergency (ER) | payer OTHER ==
[2023-06-26 07:33] VITALS: RESP 18; TEMP 98.1
--- NOTE | 2023-06-26 08:33 | ED ---
General Adult HPI - General Chief complaint: Fall Stated complaint: Fall-[facility] Time Seen by Provider: 06/26/23 08:08 Source: patient, RN notes reviewed, old records reviewed Mode of arrival: ambulatory Limitations: no limitations - History of Present Illness Initial comments: Is a 52-year-old female who presents emergency department after a fall at work. 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 Landed on her posterior right hip as well as right elbow. Has pain at both sites. Able to move her right elbow without issue. Able to move her right leg and ambulate without issue. Denies any radiation of the pains. Denies any weakness or numbness distally to the pain. Denies any saddle anesthesias. Denies any difficulty with urination or constipation. Denies any difficulty with urinary or bowel retention. Presents for further evaluation at this time. Denies hitting her head. Denies loss consciousness. Is not on blood thinners. I evaluated the patient when she was placed in a room. - Related Data Home Medications Medication Instructions Recorded Confirmed Benztropine Mesylate [Cogentin] 2 mg PO HS 10/11/22 10/11/22 Lurasidone [Latuda] 80 mg PO HS 10/11/22 10/11/22 Previous Rx's Medication Instructions Recorded LORazepam [Ativan] 0.5 mg PO HS PRN 3 Days #3 tab 10/11/22 Allergies Allergy/AdvReac Type Severity Reaction Status Date / Time Penicillins Allergy Anaphylaxis Verified 06/14/23 12:39 sulfamethoxazole Allergy Rash/Hives Verified 06/14/23 12:39 [From Bactrim] trimethoprim [From Bactrim] Allergy Rash/Hives Verified 06/14/23 12:39 aspirin AdvReac Nausea & Verified 06/14/23 12:39 Vomiting Review of Systems ROS Statement: Those systems with pertinent positive or pertinent negative responses have been documented in the HPI. Review of Systems: CONST: Denies fever EYES: Denies blurry vision ENT: Denies nasal congestion C/V: Denies Chest pain RESP: Denies shortness of breath GI: Denies abdominal pain : Denies dysuria SKIN: Denies rash. MSK: Endorses joint pain. NEURO: Denies headache ROS Other: All systems not noted in ROS Statement are negative. 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, right chest wall abscess treated once w/ PICC line + IV abx recently-folowing with Dr Gurrola,memory impairment History of Any Multi-Drug Resistant Organisms: MRSA Date of last positivie culture/infection: 04/12/17 MDRO Source:: ASPIRATE Past Surgical History: Section, Hysterectomy, Orthopedic Surgery, Tonsillectomy Past Anesthesia/Blood Transfusion Reactions: No Reported Reaction Past Psychological History: Anxiety, Bipolar, Depression Smoking Status: Vaper Past Alcohol Use History: None Reported Past Drug Use History: None Reported - Past Family History Father Family Medical History: Cancer Additional Family Medical History / Comment(s): Lung Mother Additional Family Medical History / Comment(s): Neurofibromatosis General Exam - General Exam Comments Initial Comments: General: Appears in no acute distress. HEAD: Normal with no signs of head trauma. EYES: EOMI. ENT: Hearing grossly intact. RESPIRATORY: No respiratory distress. C/V: Regular rate and rhythm. ABD: Abdomen is nondistended. EXT: No obvious deformity.. Tenderness to palpation over the posterior right elbow. Tenderness to palpation over the posterior right hip/pelvis. No midline lumbar spine tenderness to palpation. No step-offs or deformities appreciated. Ambulating without issue. SKIN: No rashes or lesions observed on exposed skin. NEURO: Alert and oriented. Limitations: no limitations Course Vital Signs 06/26/23 06/26/23 07:22 10:15 Temperature 98.1 F 98.1 F Pulse Rate 71 70 Respiratory 18 18 Rate Blood Pressure 131/80 125/72 O2 Sat by Pulse 97 98 Oximetry Medical Decision Making - Medical Decision Making Was pt. sent in by a medical professional or institution (, PA, WIRE PRODUCTS INSPECTOR, urgent care, hospital, or group home...) When possible be specific @ -No Did you speak to anyone other than the patient for history (EMS, parent, family, police, friend...)? What history was obtained from this source @ -No Did you review nursing and triage notes (agree or disagree)? Why? @ -I reviewed and agree with nursing and triage notes Were old charts reviewed (outside hosp., previous admission, EMS record, old EKG, old radiological studies, urgent care reports/EKG's, group home records)? Report findings @ -No old charts were reviewed Differential Diagnosis (chest pain, altered mental status, abdominal pain women, abdominal pain men, vaginal bleeding, weakness, fever, dyspnea, syncope, headache, dizziness, GI bleed, back pain, seizure, CVA, palpatations, mental health, musculoskeletal)? @ -Differential Musculoskeletal Muscular strain, contusion, ligament sprain, fracture, arthritis, septic arthritis, bursitis, cellulitis, muscle spasm, nerve compression, DVT, arterial occlusion, herpes zoster, electrolyte abnormality, tumor.... This is not meant to be in all inclusive list EKG interpreted by me (3pts min.). @ -None done X-rays interpreted by me (1pt min.). @ -Patient's pelvic x-ray and elbow x-ray negative for any obvious acute traumatic injury. 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 CT interpreted by me (1pt min.). @ -None done U/S interpreted by me (1pt. min.). @ -None done What testing was considered but not performed or refused? (CT, X-rays, U/S, labs)? Why? @ -None What meds were considered but not given or refused? Why? @ -I offered analgesia medications which were declined. Did you discuss the management of the patient with other professionals (professionals i.e. , PA, WIRE PRODUCTS INSPECTOR, lab, RT, psych nurse, bilingual social worker, top case assembler, teacher, targeting acquisition officer, caser)? Give summary @ -No Was smoking cessation discussed for >3mins.? @ -No Was critical care preformed (if so, how long)? @ -No Were there social determinants of health that impacted care today? How? (Homelessness, low income, unemployed, alcoholism, drug addiction, transportation, low edu. Level, literacy, decrease access to med. care, halfway, rehab)? @ -No Was there de-escalation of care discussed even if they declined (Discuss DNR or withdrawal of care, Hospice)? DNR status @ -No What co-morbidities impacted this encounter? (DM, HTN, Smoking, COPD, CAD, Cancer, CVA, ARF, Chemo, Hep., AIDS, mental health diagnosis, sleep apnea, morbid obesity)? @ -None Was patient admitted / discharged? Hospital course, mention meds given and route, prescriptions, significant lab abnormalities, going to OR and other pertinent info. @ -Based on the patient's presentation and physical exam, presents complaining of extremity pain in the right elbow as well as posterior right hip. She declines analgesia medications. Is ambulating without issue. Exam unremarkable. No concern for cauda equina syndrome at this time as he has no red flag symptoms. Vital signs are within acceptable limits. We will obtain x-rays of the right elbow as well as pelvis. Patient was in agreement this plan. X-rays are negative. I updated the patient. Patient was in understanding. Recommended return to work tomorrow. She was in agreement this plan. She does confirm she has a history of lateral epicondylitis I instructed the patient to follow up with their PCP in the next 1-3 days. I explained that the patient should return to the emergency department if they experience any worsening symptoms. Strict return precautions were discussed with the patient. The patient expressed understanding of these instructions. I an swered all questions that the patient had. The patient was discharged home in [good] condition with their prescriptions and follow up information. Undiagnosed new problem with uncertain prognosis? @ -No Drug Therapy requiring intensive monitoring for toxicity (Heparin, Nitro, Insulin, Cardizem)? @ -No Were any procedures done? @ -No Diagnosis/symptom? @ -Fall, muscle strain Acute, or Chronic, or Acute on Chronic? @ -Acute Uncomplicated (without systemic symptoms) or Complicated (systemic symptoms)? @ -Uncomplicated Side effects of treatment? @ -None Exacerbation, Progression, or Severe Exacerbation] @ -No Poses a threat to life or bodily function? @ -No Disposition Clinical Impression: Fall, Muscle strain Disposition: HOME SELF-CARE Condition: Good Instructions (If sedation given, give patient instructions): Fall Prevention (ED) Is patient prescribed a controlled substance at d/c from ED?: No Referrals: Morgan Srivastava MD [Primary Care Provider] - 1-2 days Time of Disposition: 09:51
--- NOTE | 2023-06-26 09:42 | XR ---
EXAMINATION TYPE: XR elbow 2 views RT, XR pelvis AP view DATE OF EXAM: 06/26/2023 COMPARISON: NONE HISTORY: 52-year-old female with pain after fall FINDINGS: Right elbow: Prominent bony spurring and irregularity at the lateral condyle. No joint effusion. Mild posterior ol ecranon soft tissue swelling. No acute fracture, subluxation, dislocation seen. Pelvis: SI joints appear symmetric and intact as does the pubic symphysis. Both hips are intact with preserve d joint space. No acute fracture, subluxation, dislocation. IMPRESSION: 1. Right elbow: Correlate for any symptoms of lateral epicondylitis or chronic extensor tendinopathy. No acute osseous abnormality seen. Mild posterior soft tissue swelling may be present. 2. Pelvis: No acute osseous abnormality.
[2023-06-26 10:18] VITALS: BP 125/72; PULSE 70
== END 2023-06-26 11:42 | disposition home or self-care (01) ==
LOC: EC 07:20
DX: S76.011A Strain of muscle, fascia and tendon of right hip, initial encounter (principal); J44.9 Chronic obstructive pulmonary disease, unspecified; F41.9 Anxiety disorder, unspecified; F32.A Depression, unspecified; F17.290 Nicotine dependence, other tobacco product, uncomplicated; Z79.899 Other long term (current) drug therapy; Z88.0 Allergy status to penicillin; Z88.2 Allergy status to sulfonamides; Z88.1 Allergy status to other antibiotic agents; Z88.6 Allergy status to analgesic agent; W01.0XXA Fall on same level from slipping, tripping and stumbling without subsequent striking against object, initial encounter; Y92.002 Bathroom of unspecified non-institutional (private) residence as the place of occurrence of the external cause
CPT/HCPCS: 72170; 99283

== ENCOUNTER → 2023-06-28 | Outpatient (CLI) | payer OTHER ==
--- NOTE | 2023-06-28 14:59 | XR ---
EXAMINATION TYPE: XR Hip Complete 2 views RT DATE OF EXAM: 06/28/2023 Comparison: 06/26/2023 Clinical History: 52-year-old female pain, S30.0XXA CONTUSION OF LOWER BACK AND PELVIS, INITI Findings: The right hip joint is intact. No acute fracture, subluxation, dislocation. Impression: No acute osseous abnormality seen.
== END | disposition home or self-care (01) ==
LOC: RADXRMAIN 13:45
PROVIDERS: ATTEND Emergency Medicine
DX: S30.0XXA Contusion of lower back and pelvis, initial encounter (principal); X58.XXXA Exposure to other specified factors, initial encounter
CPT/HCPCS: 73502

== ENCOUNTER → 2023-07-13 | Outpatient (CLI) | payer OTHER ==
--- NOTE | 2023-07-14 21:26 | MR ---
EXAMINATION TYPE: MR lumbar spine wo con DATE OF EXAM: 07/13/2023 10:53 PM CLINICAL INDICATION:Female, 52 years old with history of S30.0XXD CONTUSION OF LOWER BACK AND PELVIS, SUBSE; PHH, Low back pain into right side, fell a few weeks ago COMPARISON: None TECHNIQUE: Multi planar, multi sequence imaging was performed utilizing: T1-weighted, T2-weighted, a nd turbo inversion recovery imaging of the lumbar spine. IV Contrast: cc . (None if empty) FINDINGS: Alignment: The lumbar vertebral bodies have preserved heights and alignment. Cord: The conus medullaris and the distal spinal cord appear unremarkable with regards to their signa l intensity and morphology. Bones/Discs: Mild degeneration changes throughout the spine with osteophyte formation and facet joint arthropathy. Intervertebral disc signal is maintained. T12-L1: No evidence of significant spinal canal stenosis or neural foraminal stenosis. L1-L2: No evidence of significant spinal canal stenosis or neural foraminal stenosis. L2-L3: No evidence of significant spinal canal stenosis or neural foraminal stenosis. L3-L4: No evidence of significant spinal canal stenosis or neural foraminal stenosis. L4-L5: Disc bulge and facet joint arthropathy result in mild spinal canal and mild to moderate bilate ral neural foraminal stenosis. L5-S1: The disc is rounded posterior morphology without significant spinal canal stenosis. Facet join t arthropathy with mild bilateral neural foraminal stenosis. No significant spinal canal or neural foraminal stenosis in the remainder of the visualized levels. Other findings: None. IMPRESSION: 1. No definitive evidence of disc herniation or significant spinal canal stenosis. 2. Mild disc degeneration with associated osteoarthritic changes. No significant neural foraminal st enosis.
== END | disposition home or self-care (01) ==
LOC: RADMRIMAIN 21:30
PROVIDERS: ATTEND Emergency Medicine
DX: M51.36 Other intervertebral disc degeneration, lumbar region (principal); S30.0XXD Contusion of lower back and pelvis, subsequent encounter; S50.01XD Contusion of right elbow, subsequent encounter; X58.XXXD Exposure to other specified factors, subsequent encounter
CPT/HCPCS: 72148

== ENCOUNTER 2024-02-02 08:16 | Emergency (ER) | payer MEDICAID, OTHER ==
[2024-02-02 08:26] VITALS: TEMP 97.9
--- NOTE | 2024-02-02 08:48 | ED ---
Psych HPI - General Chief Complaint: Psychiatric Symptoms Stated Complaint: med refill,mental health Time Seen by Provider: 02/02/24 08:20 Source: patient, RN notes reviewed Mode of arrival: ambulatory Limitations: no limitations - History of Present Illness Initial Comments: 53-year-old female presents emergency department with chief complaint of needing medication refill, psychiatric evaluation. Patient states she has been off her medication for months when she has a history of bipolar schizophrenia. Patient states that she has been having highs and lows she has had some intermittent suicidal ideation she states she had an increase in stress to the point where she feels that she cannot handle it. She denies any significant alcohol or drug abuse. Denies any specific physical complaints other than she states she has intermittent headaches. - Related Data Previous Rx's Medication Instructions Recorded Lurasidone [Latuda] 40 mg PO DAILY #7 tablet 02/02/24 traZODone HCL [Desyrel] 50 mg PO HS #7 tab 02/02/24 Allergies Allergy/AdvReac Type Severity Reaction Status Date / Time Penicillins Allergy Anaphylaxis Verified 02/02/24 14:49 sulfamethoxazole Allergy Rash/Hives Verified 02/02/24 14:49 [From Bactrim] trimethoprim [From Bactrim] Allergy Rash/Hives Verified 02/02/24 14:49 aspirin AdvReac Nausea & Verified 02/02/24 14:49 Vomiting Review of Systems ROS Statement: Those systems with pertinent positive or pertinent negative responses have been documented in the HPI. ROS Other: All systems not noted in ROS Statement are negative. 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, right chest wall abscess treated once w/ PICC line + IV abx recently-folowing with Dr Gurrola,memory impairment History of Any Multi-Drug Resistant Organisms: MRSA Date of last positivie culture/infection: 04/12/17 MDRO Source:: ASPIRATE Past Surgical History: Section, Hysterectomy, Orthopedic Surgery, Tonsillectomy Past Anesthesia/Blood Transfusion Reactions: No Reported Reaction Past Psychological History: Anxiety, Bipolar, Depression Smoking Status: Former smoker, Vaper Past Alcohol Use History: None Reported, Occasional Past Drug Use History: None Reported - Past Family History Father Family Medical History: Cancer Additional Family Medical History / Comment(s): Lung Mother Additional Family Medical History / Comment(s): Neurofibromatosis General Exam Limitations: no limitations General appearance: alert, in no apparent distress Head exam: Present: atraumatic, normocephalic, normal inspection Eye exam: Present: normal appearance, PERRL, EOMI. Absent: scleral icterus, conjunctival injection, periorbital swelling ENT exam: Present: normal exam, normal oropharynx, mucous membranes moist Neck exam: Present: normal inspection, full ROM. Absent: tenderness, meningismus, lymphadenopathy Respiratory exam: Present: normal lung sounds bilaterally. Absent: respiratory distress, wheezes, rales, rhonchi, stridor Cardiovascular Exam: Present: regular rate, normal rhythm, normal heart sounds. Absent: systolic murmur, diastolic murmur, rubs, gallop, clicks GI/Abdominal exam: Present: soft, normal bowel sounds. Absent: distended, tenderness, guarding, rebound, rigid Neurological exam: Present: alert, oriented X3, CN II-XII intact Psychiatric exam: Present: flat affect Course Vital Signs 02/02/24 08:18 Temperature 97.9 F Pulse Rate 81 Respiratory 18 Rate Blood Pressure 142/88 O2 Sat by Pulse 99 Oximetry Medical Decision Making - Medical Decision Making Was pt. sent in by a medical professional or institution ([employer], [employer] SUPERVISOR, urgent care, hospital, or residential...) When possible be specific @ -No Did you speak to anyone other than the patient for history (EMS, parent, family, police, friend...)? What history was obtained from this source @ -No Did you review nursing and triage notes (agree or disagree)? Why? @ -I reviewed and agree with nursing and triage notes Were old charts reviewed (outside hosp., previous admission, EMS record, old EKG, old radiological studies, urgent care reports/EKG's, residential records)? Report findings @ -No old charts were reviewed Differential Diagnosis (chest pain, altered mental status, abdominal pain women, abdominal pain men, vaginal bleeding, weakness, fever, dyspnea, syncope, headache, dizziness, GI bleed, back pain, seizure, CVA, palpatations, mental health, musculoskeletal)? @ -Differential Mental Health Depression, anxiety, bipolar, psychosis, schizophrenia, borderline personality, situational depression, adjustment disorder, behavioral disorder, brain tumor, malingering, substance abuse, encephalopathy, medication reaction, dementia, hypothyroidism, degenerative neurologic disorder, lupus.... This is not meant to be all-inclusive list EKG interpreted by me (3pts min.). @ -None X-rays interpreted by me (1pt min.). @ -None done CT interpreted by me (1pt min.). @ -None done U/S interpreted by me (1pt. min.). @ -None done What testing was considered but not performed or refused? (CT, X-rays, U/S, labs)? Why? @ -None What meds were considered but not given or refused? Why? @ -None Did you discuss the management of the patient with other professionals (professionals i.e. , PA, COAL AND ASH SUPERVISOR, lab, RT, psych nurse, social sciences professor, barrel raiser helper, teacher, public service officer, catalytic case operator)? Give summary @ -EPS, psychiatrist evaluated the patient and recommended outpatient treatment set up with [facility]. Was smoking cessation discussed for >3mins.? @ -No Was critical care preformed (if so, how long)? @ -No Were there social determinants of health that impacted care today? How? (Homelessness, low income, unemployed, alcoholism, drug addiction, transportation, low edu. Level, literacy, decrease access to med. care, detention, rehab)? @ -No Was there de-escalation of care discussed even if they declined (Discuss DNR or withdrawal of care, Hospice)? DNR status @ -No What co-morbidities impacted this encounter? (DM, HTN, Smoking, COPD, CAD, Cancer, CVA, ARF, Chemo, Hep., AIDS, mental health diagnosis, sleep apnea, mor bid obesity)? @ -Bipolar disorder Was patient admitted / discharged? Hospital course, mention meds given and route, prescriptions, significant lab abnormalities, going to OR and other pertinent info. @ -Discharge patient was restarted on her Latuda. Patient has follow-up within the next week return parameters hilda. Patient is not currently suicidal. Safety plan in place. Undiagnosed new problem with uncertain prognosis? @ -No Drug Therapy requiring intensive monitoring for toxicity (Heparin, Nitro, Insulin, Cardizem)? @ -No Were any procedures done? @ -No Diagnosis/symptom? @ Bipolar disorder Acute, or Chronic, or Acute on Chronic? @ -Acute Uncomplicated (without systemic symptoms) or Complicated (systemic symptoms)? @ -complicated Side effects of treatment? @ -No Exacerbation, Progression, or Severe Exacerbation? @ -No Poses a threat to life or bodily function? How? (Chest pain, [place], [place], pneumonia, PE, COPD, DKA, ARF, appy, cholecystitis, CVA, Diverticulitis, Homicidal, Suicidal, threat to staff... and all critical care pts) @ -No - Lab Data Lab Results 02/02/24 Range/Units 08:55 Urine Opiates Screen Not Detected (NotDetected) Ur Oxycodone Screen Not Detected (NotDetected) Urine Methadone Screen Not Detected (NotDetected) Ur Barbiturates Screen Not Detected (NotDetected) U Tricyclic Antidepress Not Detected (NotDetected) Ur Phencyclidine Scrn Not Detected (NotDetected) Ur Amphetamines Screen Not Detected (NotDetected) U Methamphetamines Scrn Not Detected (NotDetected) U Benzodiazepines Scrn Not Detected (NotDetected) Urine Cocaine Screen Not Detected (NotDetected) U Marijuana (THC) Screen Not Detected (NotDetected) Disposition Clinical Impression: Bipolar disorder Disposition: HOME SELF-CARE Condition: Stable Additional Instructions: Please return to the Emergency Department if symptoms worsen or any other concerns. Prescriptions: traZODone HCL [Desyrel] 50 mg PO HS #7 tab Lurasidone [Latuda] 40 mg PO DAILY #7 tablet Is patient prescribed a controlled substance at d/c from ED?: No Referrals: Morgan Srivastava MD [Primary Care Provider] - 1-2 days Time of Disposition: 14:42
[2024-02-02 09:21] LABS: Amphetamine Screen,Urine Not Detected (NotDetected); Barbiturate Screen,Urine Not Detected (NotDetected); Benzodiazepines Screen,Urine Not Detected (NotDetected); Cocaine Screen,Urine Not Detected (NotDetected); Methadone Screen, Urine Not Detected (NotDetected); Opiate Screen,Urine Not Detected (NotDetected); Oxycodone Screen, Urine Not Detected (NotDetected); Phencyclidine Screen,Urine Not Detected (NotDetected); Tricyclic Antidepressant,Urine Not Detected (NotDetected); Urn Cannabinoid Scrn Not Detected (NotDetected)
[2024-02-02 14:54] VITALS: BP 130/78; PULSE 63; RESP 16
== END 2024-02-02 15:19 | disposition home or self-care (01) ==
LOC: EC 08:16
CPT/HCPCS: 80306; 82075; 99285

== ENCOUNTER 2024-03-26 12:32 | Inpatient (IN) | payer MEDICAID ==
[2024-03-26 13:03] LABS: Basophils % (A) 0 %; Eosinophils % (A) 0 %; HCT 43.7 % (34.0-46.0); HGB 14.1 gm/dL (11.4-16.0); Lymphocytes % (A) 10 %; MCH 29.5 pg (25.0-35.0); MCHC 32.3 g/dL (31.0-37.0); MCV 91.3 fL (80.0-100.0); Mean Platelet Volume 6.8; Monocytes # (A) 0.3 k/uL (0-1.0); Monocytes % (A) 2 %; Neutrophils # (A) 9.3 k/uL (1.3-7.7); Neutrophils % (A) 87 %; Platelet Count 376 k/uL (150-450); RBC 4.78 m/uL (3.80-5.40); RDW 13.6 % (11.5-15.5); WBC 10.7 k/uL (3.8-10.6)
--- NOTE | 2024-03-26 13:03 | ED ---
General Adult HPI - General Chief complaint: Overdose Stated complaint: Overdose Time Seen by Provider: 03/26/24 12:34 Source: patient, EMS Mode of arrival: EMS Limitations: altered mental status - History of Present Illness Initial comments: Dictation was produced using [employer] dictation software. please excuse any grammatical, word or spelling errors. Chief Complaint: 53-year-old female presents to the emergency department after a suicide attempt History of Present Illness: Patient is 53-year-old female presents after suicide attempt. Earlier this morning she took approximately 30 to 40 tablets of 1000 mg Tylenol's that she got on [employer]. Police was called after she was found minimally responsive in her vehicle. She is homeless and sleeps in her vehicle at the local [facility]. Patient is a poor historian Review of systems limited due to mental status - Related Data Previous Rx's Medication Instructions Recorded Lurasidone [Latuda] 40 mg PO DAILY #7 tablet 02/02/24 traZODone HCL [Desyrel] 50 mg PO HS #7 tab 02/02/24 Allergies Allergy/AdvReac Type Severity Reaction Status Date / Time Penicillins Allergy Anaphylaxis Verified 02/02/24 14:49 sulfamethoxazole Allergy Rash/Hives Verified 02/02/24 14:49 [From Bactrim] trimethoprim [From Bactrim] Allergy Rash/Hives Verified 02/02/24 14:49 aspirin AdvReac Nausea & Verified 02/02/24 14:49 Vomiting Review of Systems ROS Statement: Those systems with pertinent positive or pertinent negative responses have been documented in the HPI. ROS Other: All systems not noted in ROS Statement are negative. 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, right chest wall abscess treated once w/ PICC line + IV abx recently-folowing with Dr Gurrola,memory impairment History of Any Multi-Drug Resistant Organisms: MRSA Date of last positivie culture/infection: 04/12/17 MDRO Source:: ASPIRATE Past Surgical History: Section, Hysterectomy, Orthopedic Surgery, Tonsillectomy Past Anesthesia/Blood Transfusion Reactions: No Reported Reaction Past Psychological History: Anxiety, Bipolar, Depression Smoking Status: Former smoker, Vaper Past Alcohol Use History: None Reported, Occasional Past Drug Use History: None Reported - Past Family History Father Family Medical History: Cancer Additional Family Medical History / Comment(s): Lung Mother Additional Family Medical History / Comment(s): Neurofibromatosis General Exam - General Exam Comments Initial Comments: PHYSICAL EXAM: General Impression: Lethargic, arousable, not in acute distress HEENT: Normocephalic atraumatic, extra-ocular movements intact, pupils equal and reactive to light bilaterally, mucous membranes moist. Cardiovascular: Heart regular rate and rhythm Chest: Able to complete full sentences, no retractions, no tachypnea Abdomen: abdomen soft, non-tender, non-distended, no organomegaly Musculoskeletal: Pulses present and equal in all extremities, no peripheral edema Motor: no focal deficits noted Neurological: CN II-XII grossly intact, no focal motor or sensory deficits noted Skin: Intact with no visualized rashes Psych: Normal affect and mood Limitations: altered mental status Course Vital Signs 03/26/24 03/26/24 03/26/24 12:35 12:46 13:00 Temperature 97.5 F L Pulse Rate 59 L 61 54 L Respiratory 18 16 15 Rate Blood Pressure 118/64 118/64 119/68 O2 Sat by Pulse 100 99 98 Oximetry 03/26/24 03/26/24 03/26/24 13:15 13:30 13:45 Temperature Pulse Rate 55 L 63 61 Respiratory 16 16 15 Rate Blood Pressure 132/74 121/74 117/68 O2 Sat by Pulse 99 99 Oximetry 03/26/24 03/26/24 03/26/24 13:52 14:00 14:11 Temperature 97.4 F L Pulse Rate 60 57 L 65 Respiratory 14 14 18 Rate Blood Pressure 127/75 127/75 125/80 O2 Sat by Pulse 100 98 100 Oximetry 03/26/24 03/26/24 03/26/24 14:15 14:30 14:32 Temperature 97.6 F Pulse Rate 61 67 Respiratory 15 16 Rate Blood Pressure 125/80 139/82 O2 Sat by Pulse 100 100 Oximetry EKG Findings - EKG Comments: EKG Findings:: My EKG interpretation: Ventricular rate 58, sinus bradycardia,. 140, QRS 82, QTc 4 9. No NJ prolongation, no QTC prolongation, no ST or T-wave changes noted. Overall, this EKG is unremarkable Medical Decision Making - Medical Decision Making Was pt. sent in by a medical professional or institution (, PA, JOB ANALYST, urgent care, hospital, or residential...) When possible be specific @ -No Did you speak to anyone other than the patient for history (EMS, parent, family, police, friend...)? What history was obtained from this source @ -Some history obtained from police as described above Did you review nursing and triage notes (agree or disagree)? Why? @ -I reviewed and agree with nursing and triage notes Were old charts reviewed (outside hosp., previous admission, EMS record, old EKG, old radiological studies, urgent care reports/EKG's, residential records)? Report findings @ -No old charts were reviewed Differential Diagnosis (chest pain, altered mental status, abdominal pain women, abdominal pain men, vaginal bleeding, musculoskeletal, weakness, fever, dyspnea, syncope, headache, dizziness, GI bleed, back pain, seizure, CVA, palpatations, mental health)? @ -Differential Mental Health: Depression, anxiety, bipolar, psychosis, schizophrenia, borderline personality, situational depression, adjustment disorder, behavioral disorder, brain tumor, malingering, substance abuse, encephalopathy, medication reaction, dementia, hypothyroidism, degenerative neurologic disorder, lupus.... This is not meant to be all-inclusive list EKG interpreted by me (3pts min.). @ -See above X-rays interpreted by me (1pt min.). @ -None done CT interpreted by me (1pt min.). @ -None done U/S interpreted by me (1pt. min.). @ -None done What testing was considered but not performed or refused? (CT, X-rays, U/S, labs)? Why? @ -None What meds were considered but not given or refused? Why? @ -None Was smoking cessation discussed for >3mins.? @ -No Were there social determinants of health that impacted care today? How? (Homelessness, low income, unemployed, alcoholism, drug addiction, transpor tation, low edu. Level, literacy, decrease access to med. care, halfway, rehab)? @ -No Was there de-escalation of care discussed even if they declined (Discuss DNR or withdrawal of care, Hospice)? DNR status @ -No What co-morbidities impacted this encounter? (DM, HTN, Smoking, COPD, CAD, Cancer, CVA, ARF, Chemo, Hep., AIDS, mental health diagnosis, sleep apnea, morbid obesity)? @ -None Was patient admitted / discharged? Hospital course, mention meds given and route, prescriptions, significant lab abnormalities, going to OR and other pertinent info. @ -53-year-old female presents with Tylenol overdose. Patient took toxic dose. Vital signs upon arrival are within acceptable limits. Patient started on Mucomyst. laboratory evaluation obtained. Acetaminophen level to 265.8. Liver enzymes are within acceptable limits. No lactic acidosis. Patient does not meet criteria for transfer to transplant center. Case discussed with recycling coordinator Dr. Morocho for ICU bed. Case discussed with Dr. Srivastava for admission. Psychiatry consult Did you discuss the management of the patient with other professionals (professionals i.e. , PA, JOB ANALYST, lab, RT, psych nurse, social services director, lye bath operator, teacher, chief customer officer, block and case maker)? Give summary @ -see abive Was critical care preformed (if so, how long)? @ -Yes, 77 minutes Undiagnosed new problem with uncertain prognosis? @ -No Drug Therapy requiring intensive monitoring for toxicity (Heparin, Nitro, Insulin, Cardizem)? @ -No Were any procedures done? @ -No Diagnosis/symptom? Acute, or Chronic, or Acute on Chronic? Uncomplicated (without systemic symptoms) or Complicated (systemic symptoms)? @ -Tylenol overdose Side effects of treatment? @ -No Exacerbation, Progression, or Severe Exacerbation? @ -No Poses a threat to life or bodily function? How? (Chest pain, USA, ME, pneumonia, PE, COPD, DKA, ARF, appy, cholecystitis, CVA, Diverticulitis, Homicidal, Suicidal, threat to staff... and all critical care pts) @ -yes - Lab Data Result diagrams: 03/26/24 12:40 03/26/24 12:40 Lab Results 03/26/24 03/26/24 03/26/24 Range/Units 12:40 12:40 12:40 WBC 10.7 H (3.8-10.6) k/uL RBC 4.78 (3.80-5.40) m/uL Hgb 14.1 (11.4-16.0) gm/dL Hct 43.7 (34.0-46.0) % MCV 91.3 (80.0-100.0) fL MCH 29.5 (25.0-35.0) pg MCHC 32.3 (31.0-37.0) g/dL RDW 13.6 (11.5-15.5) % Plt Count 376 (150-450) k/uL MPV 6.8 Neutrophils % 87 % Lymphocytes % 10 % Monocytes % 2 % Eosinophils % 0 % Basophils % 0 % Neutrophils # 9.3 H (1.3-7.7) k/uL Lymphocytes # 1.0 (1.0-4.8) k/uL Monocytes # 0.3 (0-1.0) k/uL Eosinophils # 0.0 (0-0.7) k/uL Basophils # 0.0 (0-0.2) k/uL Sodium 144 (137-145) mmol/L Potassium 4.3 (3.5-5.1) mmol/L Chloride 108 H (98-107) mmol/L Carbon Dioxide 23 (22-30) mmol/L Anion Gap 13 mmol/L BUN 8 (7-17) mg/dL Creatinine 0.81 (0.52-1.04) mg/dL Est GFR (CKD-EPI)AfAm >90 (>60 ml/min/1.73 sqM) Est GFR (CKD-EPI)NonAf 84 (>60 ml/min/1.73 sqM) Glucose 135 H (74-99) mg/dL Plasma Lactic Acid Julio 1.7 (0.7-2.0) mmol/L Calcium 10.2 (8.4-10.2) mg/dL Total Bilirubin 0.7 (0.2-1.3) mg/dL Conjugated Bilirubin 0.0 (0.0-0.3) mg/dL Unconjugated Bilirubin 0.4 (0.0-1.1) mg/dL Delta Bilirubin 0.3 H (0.0-0.2) mg/dL AST 20 (14-36) U/L ALT 19 (4-34) U/L Alkaline Phosphatase 86 (38-126) U/L Total Protein 8.3 H (6.3-8.2) g/dL Albumin 4.8 (3.5-5.0) g/dL Lipase 54 (23-300) U/L Urine HCG, Qual (Not Detectd) Salicylates <1.0 mg/dL Urine Opiates Screen (NotDetected) Ur Oxycodone Screen (NotDetected) Urine Methadone Screen (NotDetected) Acetaminophen 265.8 H* ug/mL Ur Barbiturates Screen (NotDetected) U Tricyclic Antidepress (NotDetected) Ur Phencyclidine Scrn (NotDetected) Ur Amphetamines Screen (NotDetected) U Methamphetamines Scrn (NotDetected) U Benzodiazepines Scrn (NotDetected) Urine Cocaine Screen (NotDetected) U Marijuana (THC) Screen (NotDetected) Serum Alcohol <10 mg/dL 03/26/24 03/26/24 Range/Units 13:18 13:18 WBC (3.8-10.6) k/uL RBC (3.80-5.40) m/uL Hgb (11.4-16.0) gm/dL Hct (34.0-46.0) % MCV (80.0-100.0) fL MCH (25.0-35.0) pg MCHC (31.0-37.0) g/dL RDW (11.5-15.5) % Plt Count (150-450) k/uL MPV Neutrophils % % Lymphocytes % % Monocytes % % Eosinophils % % Basophils % % Neutrophils # (1.3-7.7) k/uL Lymphocytes # (1.0-4.8) k/uL Monocytes # (0-1.0) k/uL Eosinophils # (0-0.7) k/uL Basophils # (0-0.2) k/uL Sodium (137-145) mmol/L Potassium (3.5-5.1) mmol/L Chloride (98-107) mmol/L Carbon Dioxide (22-30) mmol/L Anion Gap mmol/L BUN (7-17) mg/dL Creatinine (0.52-1.04) mg/dL Est GFR (CKD-EPI)AfAm (>60 ml/min/1.73 sqM) Est GFR (CKD-EPI)NonAf (>60 ml/min/1.73 sqM) Glucose (74-99) mg/dL Plasma Lactic Acid Julio (0.7-2.0) mmol/L Calcium (8.4-10.2) mg/dL Total Bilirubin (0.2-1.3) mg/dL Conjugated Bilirubin (0.0-0.3) mg/dL Unconjugated Bilirubin (0.0-1.1) mg/dL Delta Bilirubin (0.0-0.2) mg/dL AST (14-36) U/L ALT (4-34) U/L Alkaline Phosphatase (38-126) U/L Total Protein (6.3-8.2) g/dL Albumin (3.5-5.0) g/dL Lipase (23-300) U/L Urine HCG, Qual Not Detected (Not Detectd) Salicylates mg/dL Urine Opiates Screen Not Detected (NotDetected) Ur Oxycodone Screen Not Detected (NotDetected) Urine Methadone Screen Not Detected (NotDetected) Acetaminophen ug/mL Ur Barbiturates Screen Not Detected (NotDetected) U Tricyclic Antidepress Not Detected (NotDetected) Ur Phencyclidine Scrn Not Detected (NotDetected) Ur Amphetamines Screen Not Detected (NotDetected) U Methamphetamines Scrn Not Detected (NotDetected) U Benzodiazepines Scrn Detected H (NotDetected) Urine Cocaine Screen Not Detected (NotDetected) U Marijuana (THC) Screen Not Detected (NotDetected) Serum Alcohol mg/dL Disposition Clinical Impression: Tylenol overdose Disposition: ADMITTED IP TO THIS [facility] Condition: Critical Referrals: Morgan Srivastava MD [Primary Care Provider] - 1-2 days Decision Time: 14:43
[2024-03-26 13:08] LABS: ALT 19 U/L (4-34); AST 20 U/L (14-36); African American GFR (CKD) >90 (>60 ml/min/1.73 sqM); Albumin 4.8 g/dL (3.5-5.0); Alcohol <10 mg/dL; Alkaline Phosphatase 86 U/L (38-126); Anion Gap 13 mmol/L; Bilirubin, Delta 0.3 mg/dL (0.0-0.2); Bilirubin,Unconjugated 0.4 mg/dL (0.0-1.1); Blood Urea Nitrogen 8 mg/dL (7-17); Calcium 10.2 mg/dL (8.4-10.2); Carbon Dioxide 23 mmol/L (22-30); Chloride 108 mmol/L (98-107); Glucose 135 mg/dL (74-99); Lipase 54 U/L (23-300); Non-African American GFR(CKD) 84 (>60 ml/min/1.73 sqM); Potassium 4.3 mmol/L (3.5-5.1); Salicylate <1.0 mg/dL; Sodium 144 mmol/L (137-145); Total Bilirubin 0.7 mg/dL (0.2-1.3); Total Protein 8.3 g/dL (6.3-8.2)
[2024-03-26] MEDS: SODIUM CHLORIDE 0.9% 1,000 ML IV STA (13:21)
[2024-03-26] MEDS: WATER IV ONE ×4 (13:29→13:42)
[2024-03-26] MEDS: ACETYLCYSTEINE IV ONE ×4 (13:29→13:42)
[2024-03-26] MEDS: DEXTROSE 5% IV ONE ×4 (13:29→13:42)
[2024-03-26 13:34] LABS: Acetaminophen 265.8 ug/mL
[2024-03-26 13:57] LABS: Amphetamine Screen,Urine Not Detected (NotDetected); Barbiturate Screen,Urine Not Detected (NotDetected); Benzodiazepines Screen,Urine Detected (NotDetected); Cocaine Screen,Urine Not Detected (NotDetected); Methadone Screen, Urine Not Detected (NotDetected); Opiate Screen,Urine Not Detected (NotDetected); Oxycodone Screen, Urine Not Detected (NotDetected); Phencyclidine Screen,Urine Not Detected (NotDetected); Tricyclic Antidepressant,Urine Not Detected (NotDetected); Urn Cannabinoid Scrn Not Detected (NotDetected)
[2024-03-26] MEDS ORDERED: NALOXONE 0.4 MG/ML 1 ML VIAL IV PRN (14:40)
[2024-03-26] MEDS: DEXTROSE 5% IN WATER 500 ML with ACETYLCYSTEINE IV 3,500 MG IV ONE (14:49)
[2024-03-26] MEDS: LACTATED RINGERS 1,000 ML IV SCH (15:04)
[2024-03-26] MEDS: ONDANSETRON 4 MG/2 ML VIAL IVP STA (15:37)
[2024-03-26 17:59] LABS: Glucose,Whole Blood 168 mg/dL (70-110)
[2024-03-26] MEDS: DEXTROSE 5% IN WATER 1,000 ML with ACETYLCYSTEINE IV 7,000 MG IV ONE (18:49)
--- NOTE | 2024-03-27 02:01 | P.CNPUL ---
History of Present Illness Consult date: 03/26/24 Chief complaint: Acute Tylenol overdose History of present illness: This is a 53-year-old female patient, homeless, depressed, who [facility] The patient apparently had a suicidal attempt and the patient earlier this morning had taken around 30 to 40 tablets of 1000 mg of Tylenol that she purchased online. She was brought into the emergency department. Her initial Tylenol level was quite elevated at 265. The exact timing of the ingestion of Tylenol has not been established. The subsequent Tylenol level was down to 87. The urine drug screen was positive for benzodiazepine. Serum alcohol level was negative. test was negative. Electrolytes including renal function test and liver function test were all within normal limits. The patient has normal AST, ALT and alkaline phosphatase. Total protein and albumin have been within normal limits. The white cell count is at 10.7 with a hemoglobin of 14.1. The patient is hemodynamically stable. Afebrile. Pulse ox on room air is in the order of 95%. EKG showed a normal sinus rhythm. The patient was started on Mucomyst protocol. She is also on lactated Ringer. She is awake and alert and communicating. Review of Systems Constitutional: Reports as per HPI Eyes: denies as per HPI, denies blurred vision, denies bulging eye, denies decreased vision, denies diplopia, denies discharge, denies dry eye, denies irritation, denies itching, denies pain, denies photophobia, denies loss of peripheral vision, denies loss of vision, denies tunnel vision/blind spots Ears: deny: decreased hearing, ear discharge, earache, tinnitus Ears, nose, mouth and throat: Reports as per HPI Breasts: absent: as per HPI, change in shape, gynecomastia, masses, nipple discharge, pain, skin changes, swelling Cardiovascular: Reports as per HPI Respiratory: Reports as per HPI Gastrointestinal: Reports as per HPI Genitourinary: Reports as per HPI Menstruation: Reports as per HPI Musculoskeletal: Reports as per HPI Musculoskeletal: absent: ankle pain, ankle stiffness, ankle swelling, as per HPI, elbow pain, elbow stiffness, elbow swelling, foot pain, foot stiffness, foot swelling, hand pain, hand stiffness, hand swelling, hip pain, hip stiffness, hip swelling, knee pain, knee stiffness, knee swelling, shoulder pain, shoulder stiffness, shoulder swelling, wrist pain, wrist stiffness, wrist swelling Integumentary: Reports as per HPI Neurological: Reports as per HPI Psychiatric: Reports depression Endocrine: Reports as per HPI Hematologic/Lymphatic: Reports as per HPI Allergic/Immunologic: Reports as per HPI 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, right chest wall abscess treated once w/ PICC line + IV abx recently-folowing with Dr Gurrola,memory impairment History of Any Multi-Drug Resistant Organisms: MRSA Date of last positivie culture/infection: 04/12/17 MDRO Source:: ASPIRATE Past Surgical History: Section, Hysterectomy, Orthopedic Surgery, Tonsillectomy Past Anesthesia/Blood Transfusion Reactions: No Reported Reaction Past Psychological History: Anxiety, Bipolar, Depression Smoking Status: Former smoker, Vaper Past Alcohol Use History: None Reported, Occasional Past Drug Use History: None Reported - Past Family History Father Family Medical History: Cancer Additional Family Medical History / Comment(s): Lung Mother Additional Family Medical History / Comment(s): Neurofibromatosis Medications and Allergies Home Medications Medication Instructions Recorded Confirmed Type No Known Home Medications 03/26/24 03/26/24 History Allergies Allergy/AdvReac Type Severity Reaction Status Date / Time Penicillins Allergy Anaphylaxis Verified 03/26/24 14:54 sulfamethoxazole Allergy Rash/Hives Verified 03/26/24 14:54 [From Bactrim] trimethoprim [From Bactrim] Allergy Rash/Hives Verified 03/26/24 14:54 aspirin AdvReac Nausea & Verified 03/26/24 14:54 Vomiting Physical Exam Vitals: Vital Signs Temp Pulse Resp BP Pulse Ox 03/26/24 18:15 98.8 F 69 15 153/79 95 03/26/24 17:31 68 18 143/76 99 03/26/24 16:30 72 18 124/71 99 03/26/24 16:15 56 L 15 130/70 98 03/26/24 16:00 64 16 122/66 97 03/26/24 15:45 66 18 139/68 97 03/26/24 15:30 75 16 138/75 100 03/26/24 15:15 78 16 135/65 100 03/26/24 15:00 72 116 H 132/69 100 03/26/24 14:45 58 L 16 156/92 100 03/26/24 14:32 97.6 F 03/26/24 14:30 67 16 139/82 100 03/26/24 14:15 61 15 125/80 100 03/26/24 14:11 65 18 125/80 100 03/26/24 14:00 57 L 14 127/75 98 03/26/24 13:52 97.4 F L 60 14 127/75 100 03/26/24 13:45 61 15 117/68 99 03/26/24 13:30 63 16 121/74 99 03/26/24 13:15 55 L 16 132/74 03/26/24 13:00 54 L 15 119/68 98 03/26/24 12:46 61 16 118/64 99 03/26/24 12:35 97.5 F L 59 L 18 118/64 100 Intake and Output 03/26/24 03/26/24 03/26/24 06:59 14:59 22:59 Other: Voiding Method External Catheter Weight 70.307 kg the patient appeared well nourished and normally developed. Vital signs as documented. Head exam is unremarkable. No scleral icterus or corneal arcus noted. Neck is without jugular venous distension, thyromegaly, or carotid bruits. Carotid upstrokes are brisk bilaterally. Lungs are clear to auscultation and percussion. Cardiac exam reveals the PMI to be normally sized and situated. Rhythm is regular. First and second heart sounds normal. No murmurs, rubs or gallops. Abdominal exam reveals normal bowel sounds, no masses, no organomegaly and no aortic enlargement. Extremities are nonedematous and both femoral and pedal pulses are normal. Examination of the skin revealed no evidence of significant rashes, suspicious a ppearing nevi or other concerning lesions. Neurologically, the patient is awake and alert and the patient does not have any focal neurological deficit. Cranial nerves are essentially intact. Results - Laboratory Findings CBC and BMP: 03/26/24 12:40 03/26/24 12:40 Abnormal lab findings: Abnormal Labs 03/26/24 03/26/24 03/26/24 12:40 12:40 13:18 WBC 10.7 H Neutrophils # 9.3 H Chloride 108 H Glucose 135 H POC Glucose (mg/dL) Delta Bilirubin 0.3 H Total Protein 8.3 H Acetaminophen 265.8 H* U Benzodiazepines Scrn Detected H 03/26/24 03/26/24 17:15 17:58 WBC Neutrophils # Chloride Glucose POC Glucose (mg/dL) 168 H Delta Bilirubin Total Protein Acetaminophen 87.8 H* U Benzodiazepines Scrn Assessment and Plan Plan: Acute Tylenol overdose, suicide attempt. LFTs are normal. Will need a coagulation profile to be checked. Will check a lactic acid level. Patient is currently on Mucomyst protocol for acute acetaminophen toxicity. Levels have been improving. COPD, stable Previous history of septic arthritis involving the right shoulder/clavicular joint with MRSA back in 2017 Depression History of bipolar disorder Chronic anxiety Previous history of Tylenol overdose Plan lactated Ringer to 75 cc an hour IV Mucomyst per protocol Poison control consultation Check coagulation profile Check lactic acid level Monitor LFTs Psychiatric consultation Sitter at the bedside Will continue to follow Time with Patient: Greater than 30
[2024-03-27 08:58] LABS: INR 1.1 (<1.2); Partial Thromboplastin Time 24.6 sec (22.0-30.0); Prothrombin Time 11.7 sec (10.0-12.5)
[2024-03-27 09:00] LABS: ALT 15 U/L (4-34); AST 16 U/L (14-36); Acetaminophen <10.0 ug/mL; African American GFR (CKD) >90 (>60 ml/min/1.73 sqM); Albumin 3.8 g/dL (3.5-5.0); Alkaline Phosphatase 54 U/L (38-126); Anion Gap 8 mmol/L; Blood Urea Nitrogen 4 mg/dL (7-17); Calcium 9.6 mg/dL (8.4-10.2); Carbon Dioxide 19 mmol/L (22-30); Chloride 112 mmol/L (98-107); Glucose 123 mg/dL (74-99); Non-African American GFR(CKD) >90 (>60 ml/min/1.73 sqM); Potassium 3.6 mmol/L (3.5-5.1); Sodium 139 mmol/L (137-145); Total Bilirubin 0.6 mg/dL (0.2-1.3); Total Protein 6.6 g/dL (6.3-8.2)
--- NOTE | 2024-03-27 12:05 | P.CN ---
Psychiatric Consult - . Consult date: 03/27/24 Consult:: 03/27/24 11:58 IDENTIFYING DATA: This patient is a 53-year-old female, employed living with daughter REASON FOR REFERRAL: Psychiatry was consulted for suicide attempt HISTORY OF PRESENT ILLNESS: The patient presented to the hospital after suicide attempt via OD on 30-40 tabs of 1000 mg Tylenol. Tylenol level was elevated at 265.8 and UDS is positive for benzodiazepines. Patient seen and evaluated with sitter at bedside. She reports experiencing mood swings for the past 6-8 months after being off her medications during this time period. 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 She reports previously being on Latuda and following up with [facility] however has since stopped both. She reports experiencing some issues at work regarding feeling like her coworkers are calling her names. She reports also ideas of reference described as having her Abigail speak directly to her and communicate with her. She states feeling like her daughters were conspiring against her in addition to her coworkers and that this was what prompted her to promptly leave her house and overdose on Tylenol. Patient also report previously hearing voices however denied any right now. She continues to report passive suicidal thoughts. At this time patient denies any homical ideations, intent or plan. P atient denies any visual hallucinations. Patients admits to using alcohol occasionally however UDS was positive for benzos PAST PSYCHIATRIC HISTORY: Patient has a a history of bipolar disorder. Patient denies being on any psychiatric medications. She previously has tried lithium and Latuda. She reports "a few" inpatient hospitalizations, most recent in 2017. Patient denies any psychiatric outpatient follow-up. Reports history of suicide attempts, last in 2017. PAST MEDICAL HISTORY: COPD, GERD, memory impairment. ALLERGIES: as per EMR. CHEMICAL DEPENDENCY HISTORY: as per HPI. FAMILY PSYCHIATRIC/SUBSTANCE USE HISTORY: He reports her daughter attempted suicide in the past. SOCIAL HISTORY: Patient has 2 daughters and lives with one of them. She works at [employer] in the kitchen. She completed high school. MENTAL STATUS EXAM: General Appearance: Patient appears to be stated age is alert, pleasant, and cooperative. Patient appears to have fair hygiene and grooming wearing hospital gown with fair eye contact. Behavior: Patient is calmly lying in bed without any agitated behavior. Speech: Patient's speech is fluent and nonpressured. Mood/Affect: Patient reports their mood is "depressed", affect is congruent Suicidality/Homicidality: Patient denies having any homicidal ideation intent or plan. She does report suicidal ideations Perceptions: Patient denies any visual hallucinations and denies any auditory hallucinations Though content/process: There is evidence of persecutory delusions and ideas of reference. Memory and concentration: AOX3, grossly intact for the purposes of this session. Can spell "WORLD" backwards Judgment and insight: Poor IMPRESSIONS: Suicide attempt via OD Bipolar disorder, current episode depressed with psychotic features PLAN: -At this time patient DOES meet criteria for inpatient psychiatric admission. -Would recommend the following medication changes/additions: Will hold off on initiating any psychotropic medications -Continue 1:1 sitter for safety -Cannot leave AMA at this time. Patient will need a petition and certification if attempting to leave AMA. -When medically stable, patient is eligible for transfer to a psych bed when available. -Communicated plan to patient's nurse -Psychiatry will sign off at this time -Please contact with any questions.
--- NOTE | 2024-03-27 14:08 | P.PN ---
Subjective Progress Note Date: 03/27/24 This is a 53-year-old female patient, homeless, depressed, who [facility] The patient apparently had a suicidal attempt and the patient earlier this morning had taken around 30 to 40 tablets of 1000 mg of Tylenol that she purchased online. She was brought into the emergency department. Her initial Tylenol level was quite elevated at 265. The exact timing of the ingestion of Tylenol has not been established. The subsequent Tylenol level was down to 87. The urine drug screen was positive for benzodiazepine. Serum alcohol level was negative. test was negative. Electrolytes including renal function test and liver function test were all within normal limits. The patient has normal AST, ALT and alkaline phosphatase. Total protein and albumin have been within normal limits. The white cell count is at 10.7 with a hemoglobin of 14.1. The patient is hemodynamically stable. Afebrile. Pulse ox on room air is in the order of 95%. EKG showed a normal sinus rhythm. The patient was started on Mucomyst protocol. She is also on lactated Ringer. She is awake and alert and communicating. On 03/19/2024, the patient is awake and alert and communicating. The patient denies having any specific complaints. She admits for an intentional suicidal attempt with Tylenol. She completed her treatment with Mucomyst. A Tylenol level is less than 10. Electrolytes show a component of mild non-anion gap metabolic acidosis. pH is 0.5. LFTs are normal. Coagulation profile is within normal limits. The patient is on room air oxygen. Awake and alert and communicating and she has a sitter at the bedside. She will need a psychiatric evaluation following this suicidal attempt. Objective - Vital Signs Vital signs: Vital Signs Temp 98.6 F 03/27/24 08:00 Pulse 62 03/27/24 10:00 Resp 14 03/27/24 10:00 BP 139/82 03/27/24 10:00 Pulse Ox 98 03/27/24 10:00 FiO2 Intake & Output 03/26/24 03/27/24 03/27/24 18:59 06:59 18:59 Intake Total 240 302 Output Total 1200 500 Balance -960 -198 Weight 70.307 kg 69.2 kg Intake: IV 240 80 Lactated Ringers 1,000 ml 240 80 @ 20 mls/hr IV .Q24H [facility] Rx#:[id number] Oral 222 Output: Urine 1200 500 Other: Voiding Method External Catheter Toilet # Voids 1 - Exam the patient appeared well nourished and normally developed. Vital signs as documented. Head exam is unremarkable. No scleral icterus or corneal arcus noted. Neck is without jugular venous distension, thyromegaly, or carotid bruits. Carotid upstrokes are brisk bilaterally. Lungs are clear to auscultation and percussion. Cardiac exam reveals the PMI to be normally sized and situated. Rhythm is regular. First and second heart sounds normal. No murmurs, rubs or gallops. Abdominal exam reveals normal bowel sounds, no masses, no organomegaly and no aortic enlargement. Extremities are nonedematous and both femoral and pedal pulses are normal. Examination of the skin revealed no evidence of significant rashes, suspicious appearing nevi or other concerning lesions. Neurologically, the patient is awake and alert and the patient does not have any focal neurological deficit. Cranial nerves are essentially intact. - Labs CBC & Chem 7: 03/26/24 12:40 03/27/24 08:40 Labs: Abnormal Lab Results - Last 24 Hours (Table) 03/26/24 03/26/24 03/26/24 Range/Units 12:40 12:40 13:18 WBC 10.7 H (3.8-10.6) k/uL Neutrophils # 9.3 H (1.3-7.7) k/uL Chloride 108 H (98-107) mmol/L Carbon Dioxide (22-30) mmol/L BUN (7-17) mg/dL Glucose 135 H (74-99) mg/dL POC Glucose (mg/dL) (70-110) mg/dL Delta Bilirubin 0.3 H (0.0-0.2) mg/dL Total Protein 8.3 H (6.3-8.2) g/dL Acetaminophen 265.8 H* ug/mL U Benzodiazepines Scrn Detected H (NotDetected) 03/26/24 03/26/24 03/27/24 Range/Units 17:15 17:58 08:40 WBC (3.8-10.6) k/uL Neutrophils # (1.3-7.7) k/uL Chloride 112 H (98-107) mmol/L Carbon Dioxide 19 L (22-30) mmol/L BUN 4 L (7-17) mg/dL Glucose 123 H (74-99) mg/dL POC Glucose (mg/dL) 168 H (70-110) mg/dL Delta Bilirubin (0.0-0.2) mg/dL Total Protein (6.3-8.2) g/dL Acetaminophen 87.8 H* ug/mL U Benzodiazepines Scrn (NotDetected) Assessment and Plan Plan: Acute Tylenol overdose, suicide attempt. LFTs are normal. Coagulation profile is normal. The patient completed the Mucomyst protocol and the patient is currently stable with a acetaminophen level is less than 10. Suicidal attempt, psychiatry is on the case COPD, stable Previous history of septic arthritis involving the right shoulder/clavicular joint with MRSA back in 2017 Depression History of bipolar disorder Chronic anxiety Previous history of Tylenol overdose Plan IV fluids to KVO IV Mucomyst per protocol has been completed Poison control consultation is appreciated Check coagulation profile is within normal limits Monitor LFTs are within normal limits Psychiatric consultation appreciated and the patient will need inpatient psychiatric treatment Sitter at the bedside Will continue to follow
[2024-03-27] MEDS: NICOTINE 21MG/24HR PATCH TRANSDERM SCH ×2 (16:36→16:43)
[2024-03-27] MEDS: POTASSIUM CHLORIDE ER 20 MEQ TAB.ER PO SCH (16:43)
--- NOTE | 2024-03-27 19:20 | PN ---
PROGRESS NOTE DATE OF SERVICE: 03/27/2024 CHIEF COMPLAINT: Tylenol overdose. HISTORY OF PRESENT ILLNESS: This lady is doing well. She is awake and alert. Psychiatry wanted her admitted to the Psych Service. PHYSICAL EXAMINATION: VITAL SIGNS: Normal. GENERAL: She is awake and alert. HEAD, EARS, EYES, NOSE, MOUTH, AND THROAT: Normal. CHEST: Clear. CARDIAC: Normal. IMPRESSION: 1. Major depression. 2. Status post Tylenol overdose. PLAN: Probably moved to [facility] today. MMODL / IJN: [id number] /
--- NOTE | 2024-03-27 19:35 | HP ---
HISTORY AND PHYSICAL CHIEF COMPLAINT: Overdose. HISTORY OF PRESENT ILLNESS: This is another admission for this 53-year-old chronically depressed female. She has not been in the office for a while. Apparently, she became depressed and overdosed on Tylenol. She is awake at this time. She denies abdominal pain, nausea, etc. PAST MEDICAL HISTORY: Unchanged or otherwise noncontributory. FAMILY HISTORY: Unchanged or otherwise noncontributory. PERSONAL HISTORY: Unchanged or otherwise noncontributory. SOCIAL HISTORY: Unchanged or otherwise noncontributory. PHYSICAL EXAMINATION: VITAL SIGNS: Normal. HEAD, EARS, EYES, NOSE, MOUTH, AND THROAT: Normal. CHEST: Clear. CARDIAC: Normal. ABDOMEN: Soft, nontender without any visceromegaly or masses. Bowel sounds are present. EXTREMITIES: Normal. NEUROLOGICAL: She is slightly lethargic, but intact. There is no jaundice. IMPRESSION: 1. Drug ingestion, overdose with Tylenol. 2. Major depression. 3. History of nicotine abuse. 4. Schizoaffective disorder? PLAN: 1. Bedrest. 2. IV fluids. 3. Suicide precautions. 4. Psych consult. MMODL / IJN: [id number] /
--- NOTE | 2024-03-28 17:55 | P.PN ---
Subjective Progress Note Date: 03/28/24 This is a 53-year-old female patient, homeless, depressed, who [facility] The patient apparently had a suicidal attempt and the patient earlier this morning had taken around 30 to 40 tablets of 1000 mg of Tylenol that she purchased online. She was brought into the emergency department. Her initial Tylenol level was quite elevated at 265. The exact timing of the ingestion of Tylenol has not been established. The subsequent Tylenol level was down to 87. The urine drug screen was positive for benzodiazepine. Serum alcohol level was negative. test was negative. Electrolytes including renal function test and liver function test were all within normal limits. The patient has normal AST, ALT and alkaline phosphatase. Total protein and albumin have been within normal limits. The white cell count is at 10.7 with a hemoglobin of 14.1. The patient is hemodynamically stable. Afebrile. Pulse ox on room air is in the order of 95%. EKG showed a normal sinus rhythm. The patient was started on Mucomyst protocol. She is also on lactated Ringer. She is awake and alert and communicating. On 03/19/2024, the patient is awake and alert and communicating. The patient denies having any specific complaints. She admits for an intentional suicidal attempt with Tylenol. She completed her treatment with Mucomyst. A Tylenol level is less than 10. Electrolytes show a component of mild non-anion gap metabolic acidosis. pH is 0.5. LFTs are normal. Coagulation profile is within normal limits. The patient is on room air oxygen. Awake and alert and communicating and she has a sitter at the bedside. She will need a psychiatric evaluation following this suicidal attempt. On 03/28/2024, the patient has no specific complaints. Doing well. Resting comfortably in bed. Sitter at the bedside and the patient is awaiting a transfer to psychiatry unit for inpatient psychiatric evaluation and treatment. No respiratory distress. No nausea or emesis. LFTs are normal from yesterday. Objective - Vital Signs Vital signs: Vital Signs Temp 98.5 F 03/28/24 07:48 Pulse 59 L 03/28/24 07:48 Resp 20 03/28/24 07:48 BP 122/74 03/28/24 07:48 Pulse Ox 96 03/28/24 09:04 FiO2 Intake & Output 03/27/24 03/28/24 03/28/24 18:59 06:59 18:59 Intake Total 322 Output Total 1200 150 Balance -878 -150 Weight 69.2 kg Intake: IV 100 Lactated Ringers 1,000 ml 100 @ 20 mls/hr IV .Q24H [facility] Rx#:[id number] Oral 222 Output: Urine 1200 150 Other: Voiding Method Toilet Toilet # Voids 1 2 - Exam the patient appeared well nourished and normally developed. Vital signs as documented. Head exam is unremarkable. No scleral icterus or corneal arcus noted. Neck is without jugular venous distension, thyromegaly, or carotid bruits. Carotid upstrokes are brisk bilaterally. Lungs are clear to auscultation and percussion. Cardiac exam reveals the PMI to be normally sized and situated. Rhythm is regular. First and second heart sounds normal. No murmurs, rubs or gallops. Abdominal exam reveals normal bowel sounds, no masses, no organomegaly and no aortic enlargement. Extremities are nonedematous and both femoral and pedal pulses are normal. Examination of the skin revealed no evidence of significant rashes, suspicious appearing nevi or other concerning lesions. Neurologically, the patient is awake and alert and the patient does not have any focal neurological deficit. Cranial nerves are essentially intact. - Labs CBC & Chem 7: 03/26/24 12:40 03/27/24 08:40 Assessment and Plan Plan: Acute Tylenol overdose, suicide attempt. LFTs are normal. Coagulation profile is normal. The patient completed the Mucomyst protocol and the patient is currently stable with a acetaminophen level is less than 10. Suicidal attempt, psychiatry is on the case COPD, stable Previous history of septic arthritis involving the right shoulder/clavicular joint with MRSA back in 2017 Depression History of bipolar disorder Chronic anxiety Previous history of Tylenol overdose Plan IV fluids to KVO IV Mucomyst per protocol has been completed Poison control consultation is appreciated Check coagulation profile is within normal limits LFTs are normal Psychiatric consultation appreciated and the patient will need inpatient psychiatric treatment Critical care services will sign off
[2024-03-28 20:30] VITALS: BP 130/76; PULSE 57; RESP 17; TEMP 97.8
--- NOTE | 2024-03-28 22:18 | DS ---
DISCHARGE SUMMARY CHIEF COMPLAINT: Drug overdose and major depression. HISTORY OF PRESENT ILLNESS AND PHYSICAL EXAMINATION: Details of this lady's history and physical can be found in the initial workup. LABORATORY STUDIES: While she was in the hospital, she had laboratory studies, details of which can be found in the laboratory section of her chart. COURSE IN THE HOSPITAL: After admission, she was placed on bedrest, started on intravenous fluids and placed on suicide precautions. She became awake and alert. Her liver enzymes remained normal. She was seen by Psychiatry and it was recommended that she be admitted to the psychiatric unit. She was transferred there on the . FINAL DIAGNOSES: 1. Drug ingestion, overdose of Tylenol. 2. Major depression. 3. History of tobacco abuse. OPERATIONS: None. CONSULTATIONS: Psychiatry. She is improved. MASSIEL / FLORINA: [id number] /
--- NOTE | 2024-03-31 08:34 | HP ---
HISTORY AND PHYSICAL CHIEF COMPLAINT: Major depression, status post overdose. HISTORY OF PRESENT ILLNESS: This lady took an overdose of Tylenol and was stabilized on the floor and then transferred to the psych unit. She has a long-standing history of major depression and psychiatric issues. REVIEW OF SYSTEMS: She denies headaches, neurologic problems, chest pain, shortness of breath, abdominal pain, urinary complaints, etc. Past medical history, family history and personal and social histories are all otherwise unremarkable and noncontributory or unchanged. PHYSICAL EXAMINATION: HEAD, EARS, EYES, NOSE, MOUTH, AND THROAT: Normal. CHEST: Clear. CARDIAC: Normal. Abdomen: Soft, nontender. EXTREMITIES: Normal. IMPRESSION: 1. Major depression. 2. Status post attempted suicide by overdose. 3. History of nicotine abuse. RECOMMENDATIONS: None. MMODL / IJN: [id number] /
== END 2024-03-28 20:34 | DRG 885 ==
LOC: EC 12:32 → 2SICU 14:41 → 4SSUR 03-28 08:40
PROVIDERS: ADMIT Family Medicine; ATTEND Family Medicine
DX: F31.5 Bipolar disorder, current episode depressed, severe, with psychotic features (principal); E87.20 Acidosis, unspecified; Z59.00 Homelessness unspecified; J44.9 Chronic obstructive pulmonary disease, unspecified; T39.1X2A Poisoning by 4-Aminophenol derivatives, intentional self-harm, initial encounter; F41.9 Anxiety disorder, unspecified; K21.9 Gastro-esophageal reflux disease without esophagitis; Z87.891 Personal history of nicotine dependence; Z91.51 Personal history of suicidal behavior; Z86.14 Personal history of Methicillin resistant Staphylococcus aureus infection; Z88.6 Allergy status to analgesic agent; Z88.0 Allergy status to penicillin; Z88.2 Allergy status to sulfonamides; Z86.73 Personal history of transient ischemic attack (TIA), and cerebral infarction without residual deficits
CPT/HCPCS: 36415; 80053; 80143; 80179; 80306; 80320; 81025; 82248; 83605; 83690; 85025; 85610; 85730; 87635; 93005; 94760; 96361; 96365; 96366; 96367; 96375; 99285

== ENCOUNTER 2024-03-28 19:14 | Inpatient (IN) | payer MEDICAID ==
[2024-03-28] MEDS ORDERED: MAG HYDROX/AL HYDROX/SIMETH 355 ML BOTTLE PO PRN (19:22)
[2024-03-28] MEDS ORDERED: haloperidoL 5 MG TAB PO PRN (19:22)
[2024-03-28] MEDS ORDERED: HALOPERIDOL LACTATE 5 MG/ML 1 ML VIAL IM PRN (19:25)
[2024-03-28] MEDS ORDERED: LORazepam 2 MG/ML INJ IM PRN (19:25)
[2024-03-28] MEDS ORDERED: traZODone HCL 50 MG TAB PO PRN (19:26)
[2024-03-29] MEDS ORDERED: NICOTINE GUM (POLACRILEX) 2 MG GUM BUCCAL PRN (11:01)
--- NOTE | 2024-03-29 11:02 | P.HP ---
Psychiatric H&P - . H&P Date: 03/29/24 History & Physical: Allergies Allergy/AdvReac Type Severity Reaction Status Date / Time Penicillins Allergy Anaphylaxis Verified 03/26/24 14:54 sulfamethoxazole Allergy Rash/Hives Verified 03/26/24 14:54 From Bactrim trimethoprim from Bactrim Allergy Rash/Hives Verified 03/26/24 14:54 aspirin AdvReac Nausea & Verified 03/26/24 14:54 Vomiting Vital Signs Temp 98.1 F 03/29/24 06:07 Pulse 61 03/29/24 06:07 Resp 15 03/29/24 06:07 BP 110/70 03/29/24 06:07 Pulse Ox 100 03/29/24 06:07 FiO2 Intake & Output 03/28/24 03/29/24 03/29/24 18:59 06:59 18:59 Weight 67.767 kg 03/29/24 10:35 IDENTIFYING DATA: This patient is a 53-year-old female, 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 has 3 kids. . HISTORY OF PRESENT ILLNESS: Patient was seen initially by Dr Chamorro on 03/27 as a psychiatric consult and as per her note "The patient presented to the hospital after suicide attempt via OD on 30-40 tabs of 1000 mg Tylenol. Tylenol level was elevated at 265.8 and UDS is positive for benzodiazepines. Patient seen and evaluated with sitter at bedside. She reports experiencing mood swings for the past 6-8 months after being off her medications during this time period. 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 She reports previously being on Latuda and following up with [facility] however has since stopped both. She reports experiencing some issues at work regarding feeling like her coworkers are calling her names. She reports also ideas of reference described as having her Abigail speak directly to her and communicate with her. She states feeling like her daughters were conspiring against her in addition to her coworkers and that this was what prompted her to promptly leave her house and overdose on Tylenol. Patient also report previously hearing voices however denied any right now. She continues to report passive suicidal thoughts. At this time patient denies any homical ideations, intent or plan. Patient denies any visual hallucinations. Patients admits to using alcohol occasionally however UDS was positive for benzos. uses vape nicotine products." patient was seen today for psychiatric evaluation. she spoke about the reason why she had to come to the hospital. States that she had a "breakdown". Claims that she has been off her psychiatric medications and believes that it has been causing her to gain weight and causing her to be too lethargic. She states that it interferes with her work. She was fairly skeptical about medications. She states that people were "messing with me" and teasing her online. She states that she has been off Facebook, she states that she went as far as to get a new phone. She claims that the Abigail device in her home even knows who she is. She claims that she has a history of bipolar disorder however has been only recently diagnosed by Dr. Alejo at [facility]. She has not been following up at [facility] any longer. She did endorse more paranoia. She is denying any suicidal homicidal ideations intent or plan. Denying any auditory or visual hallucinations. PAST PSYCHIATRIC HISTORY: Patient has a a history of bipolar disorder. Patient denies being on any psychiatric medications, states that she is to be on Latuda and lithium. She reports "a few" inpatient hospitalizations, most recent in 2017. Patient denies any psychiatric outpatient follow-up, used to be at [facility] seeing Dr Alejo as her psychiatris. Reports history of suicide attempts, last in 2017. PAST MEDICAL HISTORY: COPD, GERD, memory impairment. ALLERGIES: as per EMR. CHEMICAL DEPENDENCY HISTORY: as per HPI. FAMILY PSYCHIATRIC/SUBSTANCE USE HISTORY: He reports her daughter attempted suicide in the past. SOCIAL HISTORY: Patient has 3 kids and lives with one of them in a trailer. She works at [employer] in the kitchen. She completed high school. 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 She is . MENTAL STATUS EXAM: General Appearance: Patient appears to be stated age is alert, attempts to be cooperative. Patient appears to have fair hygiene and grooming wearing hospital gown with fair eye contact. Behavior: Patient is calmly lying in bed without any agitated behavior. Times to cooperate, some paranoia Speech: Patient's speech is fluent and nonpressured. Rambles at times, tangential Mood/Affect: Patient reports their mood is "depressed and having mood swings", affect is congruent Suicidality/Homicidality: Patient denies having any homicidal ideation intent or plan. Denies any suicidal thoughts. Perceptions: Patient denies any visual hallucinations and denies any auditory hallucinations Though content/process: There is evidence of persecutory delusions and ideas of reference. Endorsing some paranoia. Memory and concentration: AOX3, grossly intact for the purposes of this session. Can spell "WORLD" backwards Judgment and insight: Poor IMPRESSIONS: Suicide attempt via OD Bipolar disorder, current episode depressed with psychotic features nicotine dependence STRENGTHS/WEAKNESSES: strength is that patient is resilient. Weakness is that patient has poor judgment and is impulsive INTELLECT: Average PLAN: -Patient is admitted under voluntary status to [facility] for stabilization of psychiatric symptoms and safety. Patient has signed adult voluntary form and medication consent and is placed in patient's chart. -Medications : Start Abilify 5 mg daily for mood stabilization/psychosis, trazodone 50 mg nightly for insomnia/mood. -Ativan and Haldol PRN for agitation/aggression -Patient was informed of the risks, benefits and side effects of the medication and patient verbally consented to taking the medications. Patient signed med consent form and was placed in chart. -Internal Medicine consult to perform medical evaluation and physical. -NRT -nicotine gum -SW on board for discharge planning. Encourage patient to participate in groups to work on coping skills. 03/29/24 11:02
[2024-03-29] MEDS: ARIPiprazole 5 MG TAB PO SCH (11:42)
[2024-03-29] MEDS: NICOTINE 14MG/24HR PATCH TRANSDERM SCH (11:53)
[2024-03-29] MEDS: traZODone HCL 50 MG TAB PO SCH (21:40)
[2024-03-30] MEDS: MAGNESIUM HYDROXIDE 2,400 MG/30 ML CUP PO PRN (09:17)
--- NOTE | 2024-03-30 09:55 | P.PN ---
Progress Note - Text Progress Note Date: 03/30/24 Interval history: Patient was seen wandering the hallways and was directable and agreeable to s peak with procedure writer. Patient continues to be somewhat argumentative, continues to minimize her bipolar disorder however has been taking her medications. She states that the Abilify has been helping calm her mood down less irritable today. Not endorsing any paranoia today. She was fairly focused on discharge. She states that she was able to sleep fairly last night with the trazodone. Judgment and insight remain fairly poor. At this time patient denies any suicidal or homicidal ideations intent or plan. Denies any Auditory or visual hallucinations. Patient denies any side effects from the medications and has been compliant with meds. Mental status exam: General Appearance: Patient appears to be stated age is alert, directable, and cooperative. Behavior: No agitated behavior. Patient is calm and directable mildly argumentative at times Speech: Patient's speech is fluent and nonpressured. Mood/Affect: Mood is improving mildly, affect is congruent and constricted. Suicidality/Homicidality: Patient denies having any suicidal or homicidal ideation intent or plan. Perceptions: Patient denies any auditory or visual hallucinations. Though content/process: There is no evidence of any delusional thought content and thought process is linear and goal-directed. Focused on her insurance and discharge Memory and concentration: AOX3, grossly intact for the purposes of this session Judgment and insight: Poor, improving mildly Assessment/Plan: Continue with current diagnosis. Patient continues to meet criteria for inpatient psychiatric admission for symptom stabilization and s afety. Patient will be maintained on current psychotropic medication regimen, increase Abilify to 7.5 mg daily for mood stabilization/psychosis. Monitor for medication compliance and for any psychotropic medication side effects. Will continue to monitor ongoing response to treatment. Encouraged participation in milieu.
[2024-03-31] MEDS: ARIPiprazole 15 MG TAB PO SCH (07:51)
--- NOTE | 2024-03-31 12:09 | P.PN ---
Progress Note - Text Progress Note Date: 03/31/24 Interval History: Patient was seen laying in bed and was directable and agreeable to speak with publications writer in the office. She reports still experiencing issues with employment as her daughters does not want her to return to work since they also work at the same place. Patient was fixated on issues with her coworkers, displaying persecutory delusions described as her coworkers conspiring against her given her mental illness. Patient mentions she enjoys working there however has issues with the people she works with. She states having previous difficulties with insurance as she is unable to pay [id number] for her prescriptions and was unable to afford Latuda previously. She states otherwise living with her daughter. She reports issues with constipation even with as needed MiraLAX. She reports improvements in her mood swings. At this time patient denies any suicidal or homicidal ideations, intent or plan. Patient denies any auditory, visual hallucinations. Patient denies any side effects from the medications and has been compliant with meds. Mental Status Exam: General Appearance: Patient appears to be stated age is alert, directable, and cooperative. Behavior: Patient is calmly seated without any agitated behavior. Speech: Patient's speech is fluent and nonpressured. Mood/Affect: Mood is improving mildly, affect is congruent and constricted. Suicidality/Homicidality: Patient denies having any suicidal or homicidal ideation intent or plan. Perceptions: Patient denies any visual hallucinations and denies any auditory hallucinations Though content/process: There is evidence of paranoia, persecutory delusions Memory and concentration: AOX3, grossly intact for the purposes of this session Judgment and insight: Improving mildly Assessment Suicide attempt via OD Bipolar disorder, current episode depressed with psychotic features Nicotine dependence Plan: -Patient continues to meet criteria for inpatient psychiatric admission for symptom stabilization and safety. Patient has signed adult voluntary form and medication consent and was placed in patient's chart. -Medications: Increase Abilify to 7.5 mg daily today for mood stabilization/psychosis and continue trazodone 50 mg at bedtime for insomnia -When necessary Ativan and Haldol for agitation/aggression. -Labs: Reviewed -NRT -nicotine patch -SW on board for discharge planning. Encouraged the patient to participate in milieu. Anticipate discharge later this week pending stabilization in delusions
[2024-03-31] MEDS: bisacodyL 5 MG TABLET.DR PO PRN (15:18)
[2024-03-31] MEDS: LORazepam 1 MG TAB PO PRN (20:10)
[2024-04-01 07:11] VITALS: RESP 16
[2024-04-01] MEDS: ARIPiprazole 10 MG TAB PO SCH (08:39)
[2024-04-01] MEDS: IBUPROFEN 600 MG TAB PO PRN (10:43)
[2024-04-01] MEDS: bisacodyL 5 MG TABLET.DR PO STA (10:44)
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
[2024-04-01] MEDS: bisacodyL 5 MG TABLET.DR PO PRN (20:08)
[2024-04-02 07:15] VITALS: BP 114/70; PULSE 91; TEMP 97.9
[2024-04-02] MEDS: ARIPiprazole 15 MG TAB PO SCH (09:16)
--- NOTE | 2024-04-02 13:36 | P.PN ---
Progress Note - Text Progress Note Date: 04/02/24 Interval History: Patient was seen laying in bed and was directable and agreeable to speak with tra alvarez in the office. She reports feeling tired today due to difficulty sleeping overnight given her roommate. Patient notably is less fixated on persecutory delusions today related to her coworkers and appeared more bright in affect. 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 She states speaking to her daughter and she is forwarding [facility] paperwork to her PCP. Patient has been attending groups and taking her medications. At this time patient denies any suicidal or homicidal ideations, intent or plan. Patient denies any auditory, visual hallucinations and denies any paranoia or delusions. Patient denies any side effects from the medications and has been compliant with meds. Mental Status Exam: General Appearance: Patient appears to be stated age is alert, directable, and cooperative. Behavior: Patient is calmly seated without any agitated behavior. Speech: Patient's speech is fluent and nonpressured. Mood/Affect: Mood is improving mildly, affect is congruent and blunted, reactive at times Suicidality/Homicidality: Patient denies having any suicidal or homicidal ideation intent or plan. Perceptions: Patient denies any visual hallucinations and denies any auditory hallucinations Though content/process: There is evidence of slight paranoia, less fixation than previously Memory and concentration: AOX3, grossly intact for the purposes of this session Judgment and insight: Improving mildly Assessment Suicide attempt via OD Bipolar disorder, current episode depressed with psychotic features Nicotine dependence Plan: -Patient continues to meet criteria for inpatient psychiatric admission for symptom stabilization and safety. Patient has signed adult voluntary form and medication consent and was placed in patient's chart. -Medications: Increase Abilify to 15 mg daily today for psychosis/mood stabilization and continue trazodone 50 mg at bedtime for insomnia -When necessary Ativan and Haldol for agitation/aggression. -Labs: Reviewed -NRT -nicotine patch -SW on board for discharge planning. Encouraged the patient to participate in milieu. Anticipate discharge home with daughter tomorrow, daughter confirmed no firearms at home
--- NOTE | 2024-04-03 12:51 | P.DS ---
Providers Date of admission: 03/28/24 21:08 Expected date of discharge: 04/03/24 Attending physician: Leslie Chamorro MD Primary care physician: Morgan Srivastava - Discharge Diagnosis(es) (1) Suicide attempt Status: Acute Priority: High (2) Bipolar disorder, current episode depressed, severe, without psychotic features Status: Acute Priority: High (3) Nicotine dependence Status: Acute Priority: Low Hospital Course: Admission HPI: Admission note was completed by Dr. Otto "Patient was seen initially by Dr Chamorro on 03/27 as a psychiatric consult and as per her note "The patient presented to the hospital after suicide attempt via OD on 30-40 tabs of 1000 mg Tylenol. Tylenol level was elevated at 265.8 and UDS is positive for benzodiazepines. Patient seen and evaluated with sitter at bedside. She reports experiencing mood swings for the past 6-8 months after being off her medications during this time period. 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 She reports previously being on Latuda and following up with [facility] however has since stopped both. She reports experiencing some issues at work regarding feeling like her coworkers are calling her names. She reports also ideas of reference described as having her Abigail speak directly to her and communicate with her. She states feeling like her daughters were conspiring against her in addition to her coworkers and that this was what prompted her to promptly leave her house and overdose on Tylenol. Patient also report previously hearing voices however denied any right now. She continues to report passive suicidal thoughts. At this time patient denies any homical ideations, intent or plan. Patient denies any visual hallucinations. Patients admits to using alcohol occasionally however UDS was positive for benzos. uses vape nicotine products." patient was seen today for psychiatric evaluation. she spoke about the reason why she had to come to the hospital. States that she had a "breakdown". Claims that she has been off her psychiatric medications and believes that it has been causing her to gain weight and causing her to be too lethargic. She states that it interferes with her work. She was fairly skeptical about medications. She states that people were "messing with me" and teasing her online. She states that she has been off Facebook, she states that she went as far as to get a new phone. She claims that the Abigail device in her home even knows who she is. She claims that she has a history of bipolar disorder however has been only recently diagnosed by Dr. Alejo at [facility]. She has not been following up at [facility] any longer. She did endorse more paranoia. She is denying any suicidal homicidal ideations intent or plan. Denying any auditory or visual hallucinations." Hospital course: Upon admission to the unit patient was directable and agreeable to commence treatment and signed adult voluntary form.. Patient got along well with other patients on the unit and followed unit protocol. Patient was compliant with the medications and denied any side effects throughout hospital course. Patient was started on Abilify and this was increased to 50 mg daily for psychosis/mood stabilization, trazodone 50 mg at bedtime for insomnia. Patient spoke of her stressors and engaged in therapy both group and individual. Patient was displaying paranoia and delusions related to her coworkers however notably was less fixated on these thoughts towards the end of her stay. Patient was also seen by medical team for history and physical exam. Throughout the course of the hospitalization patient gradually improved with regards to mood, anxiety, sleep and returned back to their baseline level of functioning. On the day of discharge patient denied any suicidal or homicidal ideations intent or plan denied any auditory or visual hallucinations. The patient denied any access to guns or weapons. Patient denied any paranoia and did not endorse any delusions. Patient does not have a significant history of substance abuse and was counseled on abstaining from all substances including alcohol and marijuana.. Patient was also counseled on the medications and need for regular compliance and was encouraged to follow-up with their outpatient appointment for mental health and also for primary care. Prior to discharge a family meeting will be arranged by social media analyst to answer any questions and ensure safety upon discharge incuding making sure that guns/weapons are either removed from the home or locked away. She to be discharged back home with daughter with [facility] follow-up Mental status exam: General Appearance: Patient appears to be stated age is alert, pleasant, and cooperative. Patient is in no acute distress and has improved hygiene and grooming Behavior: Patient is calmly seated without any agitated behavior. Speech: Patient's speech is fluent and nonpressured. Mood/Affect: Patient reports their mood is "better", affect is congruent and euthymic. Suicidality/Homicidality: Patient denies having any suicidal or homicidal ideation intent or plan. Perceptions: Patient denies any auditory or visual hallucinations. Though content/process: There is no evidence of any delusional thought content and thought process is linear and goal-directed. More future oriented Memory and concentration: AOX3, grossly intact for the purposes of this session. Can spell "WORLD" backwards correctly. Judgment and insight: Fair Impression: Suicide attempt via OD Bipolar disorder, current episode depressed with psychotic features Nicotine dependence Plan: -Continue with discharge today as patient has improved and stabilized psychiatrically and is not currently an imminent threat to themself and/or others. -Continue medications: Abilify 15 mg daily, trazodone 50 mg at bedtime -Patient was counseled on the need for medication compliance and appropriate follow-up at mental health and also primary care for medical issues. Patient verbalized understanding and agreed. -Social work to help coordinate patients discharge today arrange for and conduct family meeting to ensure safety upon discharge and answer any questions/concerns. also to ensure safe home environment that guns/weapons are either removed from the home or locked away. Social work also to arrange for pat ients follow up appointments with the [facility] for psychiatric care along with follow up with primary care provider. -Patient counseled on abstaining from recreational drugs and marijuana and alcohol. Was informed/educated on the adverse effects on their physical and mental health. Patient verbally agreed and understood. -Patient was instructed to return to the hospital or seek immediate medical care if their psychiatric or medical symptoms do worsen or reoccur. Allergies Allergy/AdvReac Type Severity Reaction Status Date / Time Penicillins Allergy Anaphylaxis Verified 03/29/24 11:21 sulfamethoxazole Allergy Rash/Hives Verified 03/29/24 11:21 From Bactrim trimethoprim from Bactrim Allergy Rash/Hives Verified 03/29/24 11:21 aspirin AdvReac Nausea & Verified 03/29/24 11:21 Vomiting Vital Signs Temp 97.9 F 04/02/24 07:14 Pulse 91 04/02/24 07:14 Resp 16 04/02/24 07:14 BP 114/70 04/02/24 07:14 Pulse Ox 98 04/02/24 07:14 FiO2 Patient Condition at Discharge: Stable Plan - Discharge Summary New Discharge Prescriptions: New traZODone HCL [Desyrel] 50 mg PO HS 30 Days #30 tab ARIPiprazole [Abilify] 15 mg PO DAILY 30 Days #30 tab Nicotine 14Mg/24Hr Patch [Habitrol] 1 patch TRANSDERM DAILY patch Discharge Medication List ARIPiprazole [Abilify] 15 mg PO DAILY 30 Days #30 tab 04/03/24 [Rx] Nicotine 14Mg/24Hr Patch [Habitrol] 1 patch TRANSDERM DAILY patch 04/03/24 [Rx] traZODone HCL [Desyrel] 50 mg PO HS 30 Days #30 tab 04/03/24 [Rx] Follow up Appointment(s)/Referral(s): [facility] [Outside[facility] - 04/04/24 9:30 am ([id number] with mikaela Red ID and insurance card) [facility] [NON-STAFF] - 1 Week Patient Instructions/Handouts: How to Stop Smoking (DC), Bipolar Disorder (DC), Depression (DC) Activity/Diet/Wound Care/Special Instructions: Avoid the use of street drugs and alcohol. Take all medications as prescribed. When you are in need of refills on your medications, please contact your medical provider and/or outpatient psychiatrist/provider to have this done. Please go to your scheduled outpatient appointment for aftercare treatment. If symptoms return or become worse, call the crisis line at and/or go to the nearest emergency room for evaluation. National Suicide Hotline 988 Discharge Disposition: HOME SELF-CARE
== END 2024-04-03 11:05 | disposition home or self-care (01) | DRG 918 ==
LOC: 3MHU 21:08
PROVIDERS: ADMIT Psychiatry & Neurology Psychiatry; ATTEND Psychiatry & Neurology Psychiatry
DX: T39.1X2A Poisoning by 4-Aminophenol derivatives, intentional self-harm, initial encounter (principal); F31.5 Bipolar disorder, current episode depressed, severe, with psychotic features; F17.290 Nicotine dependence, other tobacco product, uncomplicated; G47.00 Insomnia, unspecified; F41.9 Anxiety disorder, unspecified; K59.00 Constipation, unspecified; Z91.120 Patient's intentional underdosing of medication regimen due to financial hardship; Z91.51 Personal history of suicidal behavior; Z79.899 Other long term (current) drug therapy